=== PATIENT | male | born 1950 | race Caucasian/White ===

== ENCOUNTER 2021-02-02 07:07 | Observation (INO) | payer MEDICARE, SELFPAY ==
[2021-02-02] VITALS (7 sets, daily range): BP systolic 101–131; BP diastolic 63–76; PULSE 67–97; RESP 16–20; TEMP 36.8–38.6; O2SAT 94–100; BMI 22.8
--- NOTE | ~2021-02-02 | CT_ITS ---
EXAMINATION: CT abdomen pelvis w con DATE: 02/02/2021 09:14 INDICATION: Abdominal pain TECHNIQUE: Computed tomography (CT) of the abdomen and pelvis was performed with 100 mL Omnipaque-350 intravenous contrast. Automated exposure control and iterative reconstruction technique were employe d. The dose-length product was 285.86 mGy-cm. COMPARISON: None FINDINGS: Mild peripheral atelectasis/scarring at the posterior left lower lobe. Heart size is normal. No peric ardial or pleural effusion. Small sliding-type hiatal hernia. Liver, gallbladder, spleen, pancreas, b ilateral adrenal glands and right kidney are normal. 7 mm nonobstructing stone at a lower pole calyx of the left kidney. Borderline dilation of the common bile duct which measures up to 7 mm in maximal diameter. No intrahepatic biliary duct dilation. There is stranding and small amount of nonloculated retroperitoneal fluid posterior to the duodenum and head of the pancreas where there is also a 2.6 cm duodenal diverticulum. The appendix is not visualized. No pericecal inflammatory change to suggest a cute appendicitis. No bowel obstruction. Bladder is normal. Bilateral small fat-containing inguinal h ernias. No free intraperitoneal gas or fluid. No pathologically enlarged abdominal or pelvic lymphade nopathy. Chronic T10 and T11 compression fractures with mild anterior wedging. Partially lumbarized S 1 segment. IMPRESSION: 1. Stranding and small amount of nonloculated fluid in the retroperitoneal space posterior to the duo denum with duodenal diverticulum and head of the pancreas. Differential would include acute interstit ial pancreatitis, peptic ulcer disease, duodenitis, duodenal diverticulitis. 2. Borderline common bile duct diameter with normal appearing gallbladder, no evident obstructing les ion 3. Small sliding-type hiatal hernia. 4. Bilateral small fat-containing inguinal hernias. And no intrahepatic biliary ductal dilation. Valdo elate with liver function tests. Reviewed, dictated and finalized at location A. IMPRESSION: 1. Stranding and small amount of nonloculated fluid in the retroperitoneal spac e posterior to the duodenum with duodenal diverticulum and head of the pancreas . Differential would include acute interstitial pancreatitis, peptic ulcer dise ase, duodenitis, duodenal diverticulitis. 2. Borderline common bile duct diameter with normal appearing gallbladder, no e vident obstructing lesion 3. Small sliding-type hiatal hernia. 4. Bilateral small fat-containing inguinal hernias. And no intrahepatic biliary ductal dilation. Correlate with liver function tests.
--- NOTE | 2021-02-02 07:40 | ED.ABDPAIN ---
HPI - Abdominal Pain General Chief Complaint: Abdominal Pain Stated Complaint: abd pain Time Seen by Provider: 02/02/21 07:32 Source: patient and RN notes reviewed Mode of arrival: ambulatory Limitations: no limitations History of Present Illness HPI narrative: Patient is 70 years old white male presents with abdominal pain started last night across the mid abdomen, aching, no radiation, constant, worse with sitting, nothing make it better. Patient denies any fever, chills, nausea, vomiting, urinary symptoms or bowel symptoms. Patient been vaccinated for COVID-19 weeks ago. Patient does not smoke and drinks occasionally, no drugs. History of appendectomy Related Data Home Medications Medication Instructions Recorded Confirmed cyanocobalamin (vitamin B-12) 1,000 mcg PO DAILY 09/07/19 02/02/21 1,000 mcg capsule loratadine 10 mg tablet 10 mg PO DAILY 09/07/19 02/02/21 Eliquis 5 mg PO BID 02/02/21 02/02/21 allopurinol 100 mg PO DAILY 02/02/21 02/02/21 lisinopril 2.5 mg PO DAILY 02/02/21 02/02/21 Allergies Allergy/AdvReac Type Severity Reaction Status Date / Time No Known Allergies Allergy Verified 02/02/21 07:11 Review of Systems Review of Systems: Narrative: CONSTITUTIONAL: Denies fever, chills, or sweats. EYES: Denies visual changes, redness, or discharge. ENT: Denies rhinorrhea, congestion, sore throat, or otalgia. CARDIOVASCULAR: Denies chest pain, palpitations, or edema. RESPIRATORY: Denies cough or dyspnea. GASTROINTESTINAL: Denies abdominal pain, nausea, vomiting, or diarrhea. GENITOURINARY: Denies dysuria or hematuria. SKIN: Denies rash or itching. MUSCULOSKELETAL: Denies back pain, joint pain, or myalgia. NEUROLOGIC: Denies headache, numbness, or weakness. PSYCHIATRIC: Denies anxiety or depression. [facility] Past Medical History Medical History Gout Impairment of balance Screening for cardiovascular condition Family History Family History Sibling , Memory loss No problems noted. Social History Social History Smoking status: Never smoker Gender identity (if verbalized by the patient): Male Exam Narrative: Exam Narrative: General appearance: Well-developed, well-nourished Skin: Normal color Head: Normocephalic, nontraumatic Eyes: Clear conjunctiva ENT: Oropharynx normal, ears normal, nose normal Neck: Supple, nontender Chest and respiratory: Airway patent, no respiratory distress, no accessory muscle use Heart: Regular rate/rhythm Abdomen: Soft, nontender, no organomegaly, quiet bowel sounds Vascular: Normal peripheral pulses, normal capillary refill. Musculoskeletal: Normal range of motion, nontender back Neurologic: Alert and oriented ?3, PRESS WRITER is normal as tested, no gross motor deficit Course Course Emergency Course: Stable Consultations Consultation #1: Dr. Kelly Admit to hospitalist Date: 02/02/21 Time: 10:11 Vital Signs Vital signs: Vital Signs Temperature 36.8 C 02/02/21 07:08 Pulse Rate 67 02/02/21 07:08 Respiratory Rate 20 02/02/21 07:08 Blood Pressure 121/73 02/02/21 07:08 Pulse Oximetry 100 02/02/21 07:08 Temperature 36.8 C 02/02/21 07:08 Pulse Rate 68 02/02/21 09:29 Respiratory Rate 18 02/02/21 09:29 Blood Pressure 131/73 02/02/21 09:29 Pulse Oximetry 98 02/02/21 09:29 MDM - Abdominal Pain MDM Narrative Medical decision making narrative: Patient presents with abdominal pain Labs, CT abdomen pelvis with IV contrast, IV fluid started. Look at my differential diagnosis below. Melissa
[2021-02-02] MEDS: SODIUM CHLORIDE 0.9% IV 1,000 ML 999 ML IV CONT (07:44)
[2021-02-02 08:16] LABS: Basophils Percent Auto 0.4 % (0.2-1.2); Eosinophils Absolute Auto 0.1 K/mm3 (0-0.3); Eosinophils Percent Auto 0.5 % (0-4.4); Hematocrit 41.5 % (42.0-52.0); Hemoglobin 14.3 g/dL (14.0-18.0); Immature Granulocyte Absolute 0.03 K/mm3 (0.00-0.031); Immature Granulocyte Percent A 0.3 % (0-0.5); Lymphocytes Absolute Auto 2.26 K/mm3 (0.9-3.2); Lymphocytes Percent Auto 20.1 % (18.3-44.2); Mean Corpuscular HGB Conc 34.5 g/dl (32-36); Mean Corpuscular Volume 95.8 fl (80-100); Mean Platelet Volume 8.9 fl (7.4-10.4); Monocytes Absolute Auto 0.9 K/mm3 (0.1-0.6); Monocytes Percent Auto 7.8 % (2.6-8.5); Neutrophils Percent Auto 70.9 % (45.5-73.1); Platelet Count Result 237 k/mm3 (150-375); Red Blood Count 4.33 M/mm3 (4.6-6.20); Red Cell Distribution Width 12.3 % (11.5-14.5); White Blood Count 11.2 K/mm3 (4.5-10.0)
[2021-02-02 09:00] LABS: Alanine Aminotransferase 19 U/L (4-50); Albumin Level 4.1 g/dL (3.5-5.1); Alkaline Phosphatase 65 U/L (38-126); Anion Gap 5 mmol/L (8-16); Aspartate Amino Transferase 36 U/L (17-59); Bilirubin,Total 2.2 mg/dL (0.2-1.3); Blood Urea Nitrogen 14 mg/dL (9-20); Calcium 8.9 mg/dL (8.4-10.2); Carbon Dioxide 27 mmol/L (22-30); Chloride 104 mmol/L (98-107); Estimated CRCL calculation 96 ml/min; Estimated Glomerular Filt Rate > 60; Glucose 112 mg/dL (75-110); Lipase 83 U/L (23-300); Sodium 136 mmol/L (137-145)
[2021-02-02 09:13] LABS: Estimated CRCL calculation 84 ml/min; Estimated Glomerular Filt Rate > 60
--- NOTE | 2021-02-02 13:57 | PC.NURSE ---
This patient, Leoncio Queen, was admitted to [facility] Room 312-01. Patient/family oriented to hospital policies and general routines including ID bracelet, bed and alarms, visiting hours, pain management, procedures, bathroom and other care routines, personal items, smoking policy, room service/diet, and visiting hours. Information on how to activate the Rapid Response Team has been discussed. Patient/Family are encouraged to report perceived risks to care and to ask questions if they do not understand what they are told or what they should do.
[2021-02-02] MEDS: SODIUM CHLORIDE 0.9% IV 1,000 ML 125 ML IV CONT (14:12)
--- NOTE | 2021-02-02 15:37 | PM.IMHP ---
H&P: HPI History of Present Illness Date/Time: 02/02/21 15:37 Patient is a very pleasant 70-year-old male with a past medical history of gout hypertension allergies and recurrent DVTs who presents the ED today with lower abdominal pain. Patient stated that all started last night about 7 or 8:00 a.m. at night he was having major pain could not sleep however denies any nausea or vomiting constipation or diarrhea to accompany it. Patient stated the pain is located in his lower abdomen, it does not have any radiation, however he has had relief since he has gotten IV Tylenol. Patient stated that he is a generally okay however he did feel little shaky and stated that he has for help to get to the bathroom downstairs nothing was no fall but he mentioned that he was just a little slow. He also stated that he felt like he was going to have to urinate a lot but only a little bit came out which she says is abnormal in most the time he urinates quite a bit at a time. Urine looked to be joey and clear. CT did show a 7 mm stone in the left kidney in the lower pole calyx that is not obstructing. CT also showed small amounts of fluid in the posterior duodenum and head of the pancreas. Patient denies chest pain, shortness of breath, fevers, chills, constipation, diarrhea, headaches, blurred vision, dizziness, lightheadedness, edema, or numbness and tingling. Patient did say that he felt a little fatigued and very like to take naps. Upon entering the room the patient was eating a full liquid tray he said he was tolerating the tomato soup and the ice cream with no pain. Patient did have pain with palpitation in the lower part of the abdomen underneath the umbilicus. A little concerned white count is 11.2 and he did have a 38.6 degree temperature. Explained to the patient that GI was consulted and that a further plan would be developed after being seen by GI however will start with blood cultures and urine cultures to check for any sites of infection. Patient denies having any open areas or any injuries of infection. Chief Complaint: Abdominal pain Review of Systems Review of Systems: All systems reviewed & are unremarkable except as noted in HPI and below [facility] Past Medical History Medical History (Updated 02/02/21 @ 16:16 by TRINIDAD Leger) Alcohol abuse DVT (deep venous thrombosis) Rt knee in '01 and left groin '03 Gout Hypertension Impairment of balance Infection Screening for cardiovascular condition Seasonal allergic rhinitis Surgical History Surgical History (Updated 02/02/21 @ 15:51 by TRINIDAD Leger) History of appendectomy 1977 Family History Family History (Updated 02/02/21 @ 15:53 by TRINIDAD Leger) Sibling , Cindy Diabetes mellitus Hyperlipemia Other Diabetes mellitus Nephew Father Hypertension Pneumonia Mother Cerebrovascular accident Hyperlipemia Social History Social History (Updated 02/02/21 @ 15:56 by TRINIDAD Leger) Social History: Patient would like to be a full code and he would also like his sister Kayleigh Handy [phone] to be the decision maker if needed. Smoking packs per day: 0.5 Smoking cigarettes per day: 10.0 Smoking status: Current every day smoker Tobacco type: cigars Second hand tobacco smoke exposure: No Alcohol intake: current Drinks per week: 28 Alcohol use details: Drinks about 3-4 beers per night 12oz Bottles Substance use: never Living arrangements: alone Additional living arrangements comments: Has a girlfriend for the last 30 years. Met on a blind date [place]. Patient does not have any pets at home. 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
[2021-02-02 16:22] LABS: Add Urine Microscopic? YES; Appearance Urine Clear (Clear); Bilirubin Urine Negative (Negative); Blood Urine Negative (Negative); Color Urine Yellow (Yellow); Glucose Urine UA Negative (Negative); Ketones Urine Trace mg/dL (Negative); Leukocyte Esterase Ur Negative LEU/UL (Negative); Mucus Urine Rare /lpf; Nitrate Urine Negative (Negative); Protein Urine Negative (Negative); RBC Urine 0-2 /hpf (0-2); Squamous Epithelial Cell Urine Rare /hpf (Few); Urobilinogen Urine Negative mg/dL (<2.0); WBC Urine 0-3 /hpf
[2021-02-02 16:23] LABS: Specific Grav Ur 1.055 (1.001-1.035)
[2021-02-02 17:26] LABS: Glucose Point of Care 184 mg/dl (65-105)
[2021-02-02] MEDS: MORPHINE SULFATE (*CRX) 2 MG/ML INJ IV PUSH (21:36)
[2021-02-03] VITALS (8 sets, daily range): BP systolic 93–106; BP diastolic 48–71; PULSE 59–86; RESP 14–33; TEMP 36.2–37.2; O2SAT 92–99; BMI 22.8
[2021-02-03] MEDS: SODIUM CHLORIDE 0.9% IV 1,000 ML 125 ML IV CONT (02:46)
[2021-02-03 05:55] LABS: Basophils Percent Auto 0.2 % (0.2-1.2); Eosinophils Percent Auto 0.1 % (0-4.4); Hematocrit 33.5 % (42.0-52.0); Hemoglobin 11.5 g/dL (14.0-18.0); Immature Granulocyte Absolute 0.04 K/mm3 (0.00-0.031); Immature Granulocyte Percent A 0.4 % (0-0.5); Lymphocytes Absolute Auto 1.65 K/mm3 (0.9-3.2); Lymphocytes Percent Auto 16.2 % (18.3-44.2); Mean Corpuscular HGB Conc 34.3 g/dl (32-36); Mean Corpuscular Hemoglobin 32.7 pg (26-34); Mean Corpuscular Volume 95.2 fl (80-100); Mean Platelet Volume 8.7 fl (7.4-10.4); Monocytes Absolute Auto 0.7 K/mm3 (0.1-0.6); Monocytes Percent Auto 6.9 % (2.6-8.5); Neutrophils Absolute Auto 7.8 K/mm3 (1.3-6.7); Neutrophils Percent Auto 76.2 % (45.5-73.1); Platelet Count Result 174 k/mm3 (150-375); Red Blood Count 3.52 M/mm3 (4.6-6.20); Red Cell Distribution Width 12.1 % (11.5-14.5); White Blood Count 10.2 K/mm3 (4.5-10.0)
[2021-02-03 06:10] LABS: Alanine Aminotransferase 13 U/L (4-50); Albumin Level 3.1 g/dL (3.5-5.1); Alkaline Phosphatase 46 U/L (38-126); Anion Gap 1 mmol/L (8-16); Aspartate Amino Transferase 23 U/L (17-59); Bilirubin,Total 2.1 mg/dL (0.2-1.3); Blood Urea Nitrogen 10 mg/dL (9-20); Calcium 8.2 mg/dL (8.4-10.2); Carbon Dioxide 27 mmol/L (22-30); Chloride 107 mmol/L (98-107); Estimated CRCL calculation 84 ml/min; Estimated Glomerular Filt Rate > 60; Glucose 116 mg/dL (75-110); Magnesium 1.6 mg/dL (1.6-2.3); Potassium 3.6 mmol/L (3.4-5.0); Sodium 135 mmol/L (137-145)
[2021-02-03] MEDS: MAGNESIUM SULF 4 GM/WATER100ML 4 GM/100 ML BAG IVPB (08:54)
[2021-02-03] MEDS: THIAMINE HCL 200 MG/2 ML VIAL 100 MG IV PUSH (08:56)
[2021-02-03] MEDS: ENOXAPARIN 40 MG/0.4 ML SYRINGE SUB-Q (08:56)
[2021-02-03] MEDS: PANTOPRAZOLE SODIUM IV 40 MG VIAL IV PUSH (08:57)
[2021-02-03] MEDS: FOLIC ACID 1 MG/0.2 ML INJ IV PUSH (09:31)
--- NOTE | 2021-02-03 09:50 | WPDGICN ---
Assessment and Plan Assessment and plan (1) Upper abdominal pain: Code(s): R10.10 - Upper abdominal pain, unspecified Status: Acute Assessment and Plan: will assess with EGD to check if ulcer, duodenitis, diverticula, etc no evidence of pancreatitis (2) Abnormal CT scan, gastrointestinal tract: Code(s): R93.3 - Abnormal findings on diagnostic imaging of other parts of digestive tract Status: Acute Assessment and Plan: egd (3) Hypertension: Code(s): I10 - Essential (primary) hypertension Status: Acute (4) Leukocytosis: Code(s): D72.829 - Elevated white blood cell count, unspecified Status: Acute Assessment and Plan: continue to monitor, pending cultures (5) Elevated bilirubin: Code(s): R17 - Unspecified jaundice Status: Acute Assessment and Plan: will get indirect bilirubin and repeat lft's GI Consult Note Consult date/time: 02/03/21 09:50 Reason for consult: upper abdominal pain, abnormal imaging of duodenum HPI: Leoncio Queen is a 70 year old male with history of gout, hypertension and DVTs who came to the ER with new onset of upper abdominal pain, moderate intensity and improved after received iv Tylenol. No previous pain like this before, never had EGD but colonoscopy about 7-[address] scan reviewed, 7 mm stone in the left kidney in the lower pole calyx that is not obstructing, also small amount of nonloculated fluid in the posterior duodenum and head of the pancreas, possible diverticula. TB 2 but other liver enzymes normal, also had wbc 11k. Blood cultures pending, he is feeling better now. Review of Systems Constitutional: Constitutional: Denies headache(s) and Denies weakness Eyes: Eyes: Denies blurry vision ENT: Reports Normal hearing present, Denies headache(s) and Denies neck pain Cardiovascular: Cardiovascular: Denies chest pain and Denies dyspnea Respiratory: Respiratory: Denies dyspnea Gastrointestinal: Gastrointestinal: Reports no additional gastrointestinal complaints Genitourinary: Genitourinary: Denies dysuria Musculoskeletal: Musculoskeletal: Denies neck pain Integumentary/Breasts: Skin/Breast: Denies dry skin Neurologic: Reports Normal hearing present, Denies headache(s) and Denies weakness Psychiatric: Psychiatric: Denies anxiety Endocrine: Endocrine: Denies change in body appearance Hematologic/Lymphatic: Hematologic/Lymphatic: Denies easy bleeding Allergic/Immunologic: Allergic/Immunologic: Denies urticaria PMFSH Past Medical History Medical History (Updated 02/03/21 @ 09:58 by Mgiuel Corona MD) Abnormal CT scan, gastrointestinal tract Alcohol abuse DVT (deep venous thrombosis) Rt knee in ' and left groin '03 Elevated bilirubin Gout Hypertension Impairment of balance Infection Leukocytosis Screening for cardiovascular condition Seasonal allergic rhinitis Upper abdominal pain Surgical History Surgical History (Updated 02/02/21 @ 15:51 by TRINIDAD Leger) History of appendectomy 1977 Family History Family History (Updated 02/02/21 @ 15:53 by TRINIDAD Leger) Sibling , Cindy Diabetes mellitus Hyperlipemia Other Diabetes mellitus Nephew Father Hypertension Pneumonia Mother Cerebrovascular accident Hyperlipemia Social History Social History (Updated 02/02/21 @ 15:56 by TRINIDAD Leger) Social History: Patient would like to be a full code and he would also like his sister Kayleigh Handy [phone] to be the decision maker if needed. Smoking packs per day: 0.5 Smoking cigarettes per day: 10.0 Smoking status: Current every day smoker Tobacco type: cigars Second hand tobacco smoke exposure: No Alcohol intake: current Drinks per week: 28 Alcohol use details: Drinks about 3-4 beers per night 12oz Bottles Substance use: never Living arrangements: alone Additional living arrang
[2021-02-03 13:05] LABS: Glucose Point of Care 105 mg/dl (65-105)
--- NOTE | 2021-02-03 13:31 | WPDANESEPPF ---
Anes - Initial Pre Proc Eval Procedure: Operation Date: 02/03/21 14:15 Proposed Procedures p Esophagogastroduodenoscopy - Miguel Corona MD Date/Time: 02/03/21 13:31 Surgeon: Ajay Brito MD Pre Op Diagnosis: Abdominal pain, duodenitis Patient Data Age: 70 Gender: M Height: 5 ft 8 in Weight: 68 kg Last Vital Signs Temp 36.2 C L 02/03/21 06:00 Pulse 86 02/03/21 06:00 Resp 20 02/03/21 06:00 BP 96/58 L 02/03/21 06:00 Pulse Ox 92 02/03/21 06:00 Allergies Allergy/AdvReac Type Severity Reaction Status Date / Time No Known Allergies Allergy Verified 02/03/21 13:22 Home Medications Medication Instructions Recorded Confirmed Type cyanocobalamin (vitamin B-12) 1,000 mcg PO DAILY 09/07/19 02/02/21 History 1,000 mcg capsule loratadine 10 mg tablet 10 mg PO DAILY 09/07/19 02/02/21 History Eliquis 5 mg PO BID 02/02/21 02/02/21 History allopurinol 100 mg PO DAILY 02/02/21 02/02/21 History lisinopril 2.5 mg PO DAILY 02/02/21 02/03/21 History Laboratory Tests 02/02/21 02/02/21 02/03/21 16:11 17:24 05:35 WBC 10.2 K/mm3 H K/mm3 (4.5-10.0) RBC 3.52 M/mm3 L M/mm3 (4.6-6.20) Hgb 11.5 g/dL L g/dL (14.0-18.0) Hct 33.5 % L % (42.0-52.0) MCV 95.2 fl fl (80-100) MCH 32.7 pg pg (26-34) MCHC 34.3 g/dl g/dl (32-36) RDW 12.1 % % (11.5-14.5) Plt Count 174 k/mm3 k/mm3 (150-375) MPV 8.7 fl fl (7.4-10.4) Immature Gran % (Auto) 0.4 % % (0-0.5) Neut % (Auto) 76.2 % H % (45.5-73.1) Lymph % (Auto) 16.2 % L % (18.3-44.2) [place] % (Auto) 6.9 % % (2.6-8.5) Eos % (Auto) 0.1 % % (0-4.4) Baso % (Auto) 0.2 % % (0.2-1.2) Lymph # (Auto) 1.65 K/mm3 K/mm3 (0.9-3.2) [place] # (Auto) 0.7 K/mm3 H K/mm3 (0.1-0.6) Eos # (Auto) 0.0 K/mm3 K/mm3 (0-0.3) Baso # (Auto) 0.0 K/mm3 K/mm3 (0.0-0.1) Abs Immat Gran (auto) 0.04 K/mm3 H K/mm3 (0.00-0.031) Absolute Neuts (auto) 7.8 K/mm3 H K/mm3 (1.3-6.7) Absolute Nucleated RBC 0.0 K/mm3 K/mm3 (0.0-0.012) Nucleated RBC % 0.0 % % (0.0-0.2) Sodium Potassium Chloride Carbon Dioxide Anion Gap BUN Creatinine Estim Creat Clear Calc Estimated GFR Glucose POC Capillary Glucose 184 mg/dl H mg/dl (65-105) Calcium Magnesium Total Bilirubin AST ALT Alkaline Phosphatase Total Protein Albumin Urine Color Yellow (Yellow) Urine Appearance Clear (Clear) Urine pH 5.0 (5.0-9.0) Ur Specific [place] 1.055 H (1.001-1.035) Urine Protein Negative mg/dL mg/dL (Negative) Urine Glucose (UA) Negative mg/dL mg/dL (Negative) Urine Ketones Trace mg/dL mg/dL (Negative) Ur Blood (Man) Negative (Negative) Urine Nitrate Negative (Negative) Urine Bilirubin Negative (Negative) Urine Urobilinogen Negative mg/dL mg/dL (<2.0) Leukocyte Esterase Rfl Negative NICO/UL NICO/UL (Negative) Urine RBC 0-2 /hpf /hpf (0-2) Urine WBC 0-3 /hpf /hpf Ur Squamous Epith Cells Rare /hpf /hpf (Few) Urine Mucus Rare /lpf /lpf 02/03/21 02/03/21 05:35 13:03 WBC RBC Hgb Hct MCV MCH MCHC RDW Plt Count MPV Immature Gran % (Auto) Neut % (Auto) Lymph % (Auto) [place] % (Auto) Eos % (Auto) Baso % (Auto) Lymph # (Auto) [place] # (Auto) Eos # (Auto) Baso # (Auto)
[2021-02-03] MEDS: LACTATED RINGERS 1,000 ML 150 ML IV CONT ×2 (13:41→15:07)
--- NOTE | 2021-02-03 15:04 | P.DS_ITS ---
DS: Admitting Diagnosis Admitting Diagnosis Admitting Diagnosis: Abdominal pain DS: Discharge Diagnosis Discharge Diagnosis (1) Abdominal pain: Qualifiers: Abdominal location: upper abdomen, unspecified Qualified Code(s): R10.10 - Upper abdominal pain, unspecified Code(s): R10.9 - Unspecified abdominal pain Status: Acute Assessment and Plan: * Ct showed: 1. Stranding and small amount of nonloculated fluid in the retroperitoneal space posterior to the duodenum with duodenal diverticulum and head of the pancreas. Differential would include acute interstitial pancreatitis, peptic ulcer disease, duodenitis, duodenal diverticulitis. 2. Borderline common bile duct diameter with normal appearing gallbladder, no evident obstructing lesion 3. Small sliding-type hiatal hernia. 4. Bilateral small fat-containing inguinal hernias. And no intrahepatic biliary ductal dilation. Correlate with liver function tests. * Bilirubin 2.2, lipase is 83 * Pain on exam with palpation * GI consulted thank you for recommendations * Morphine IV 1-2mg q4hr for moderate and severe pain * Tylenol for minimal pain * NS 125ml/hr * NPO after 0000 * EGD found a hernia and Schatzkis ring that was dilated * Up ad pam (2) Infection: Code(s): B99.9 - Unspecified infectious disease Status: Acute Assessment and Plan: * WBC 10.2 today temp 37.2 * Urgency and frequency reported resolved with standing * Blood cultures ordered and pending * Urine culture pending * Will hold on antibiotics * Trend WBC and Temps * Monitor for signs of infection. (3) Alcohol abuse: Code(s): F10.10 - Alcohol abuse, uncomplicated Status: Acute Assessment and Plan: * 3-4 beers a night * CIWA ordered * Lorazepam 1mg q4hr * Folic acid 1mg IV daily, thiamine 100mg IV daily * Trend symptoms (4) Hypertension: Code(s): I10 - Essential (primary) hypertension Status: Acute Assessment and Plan: * Blood pressure is stable at 97/51 * Lisinopril 2.5mg PO daily on hold for now * Hydralazine 10mg IV with parameters * Trend blood pressures * adjust medications as needed (5) Seasonal allergic rhinitis: Qualifiers: Allergic rhinitis trigger: unspecified Qualified Code(s): J30.2 - Other seasonal allergic rhinitis Code(s): J30.2 - Other seasonal allergic rhinitis Status: Acute Assessment and Plan: * Takes zrytec 10mg daily * Hold for now (6) Gout: Qualifiers: Chronicity: chronic Gout etiology: unspecified cause Gout site: unspecified site Presence of tophus: without tophus Qualified Code(s): M1A .9XX0 - Chronic gout, unspecified, without tophus (tophi) Code(s): M10.9 - Gout, unspecified Status: Acute Assessment and Plan: * Patient takes allopurinol 100mg PO daily at home * Hold for now (7) Hx of deep venous thrombosis: Code(s): Z86.718 - Personal history of other venous thrombosis and embolism Status: Acute Assessment and Plan: * History of blood clots in right knee and left groin * Hold Eliquis 5mg PO daily at home * Lovenox 40mg daily while NPO for prophylaxis * Up ad pam DS: Summary Hospital Course Hospital Course: Patient is a 70-year-old male with a past medical history
--- NOTE | 2021-02-03 15:04 | PM.DS ---
DS: Admitting Diagnosis Admitting Diagnosis Admitting Diagnosis: Abdominal pain DS: Discharge Diagnosis Discharge Diagnosis (1) Abdominal pain: Qualifiers: Abdominal location: upper abdomen, unspecified Qualified Code(s): R10.10 - Upper abdominal pain, unspecified Code(s): R10.9 - Unspecified abdominal pain Status: Acute Assessment and Plan: Ct showed: 1. Stranding and small amount of nonloculated fluid in the retroperitoneal space posterior to the duodenum with duodenal diverticulum and head of the pancreas. Differential would include acute interstitial pancreatitis, peptic ulcer disease, duodenitis, duodenal diverticulitis. 2. Borderline common bile duct diameter with normal appearing gallbladder, no evident obstructing lesion 3. Small sliding-type hiatal hernia. 4. Bilateral small fat-containing inguinal hernias. And no intrahepatic biliary ductal dilation. Correlate with liver function tests. Bilirubin 2.2, lipase is 83 Pain on exam with palpation GI consulted thank you for recommendations Morphine IV 1-2mg q4hr for moderate and severe pain Tylenol for minimal pain NS 125ml/hr NPO after 0000 EGD found a hernia and Schatzkis ring that was dilated Up ad pam (2) Infection: Code(s): B99.9 - Unspecified infectious disease Status: Acute Assessment and Plan: WBC 10.2 today temp 37.2 Urgency and frequency reported resolved with standing Blood cultures ordered and pending Urine culture pending Will hold on antibiotics Trend WBC and Temps Monitor for signs of infection. (3) Alcohol abuse: Code(s): F10.10 - Alcohol abuse, uncomplicated Status: Acute Assessment and Plan: 3-4 beers a night CIWA ordered Lorazepam 1mg q4hr Folic acid 1mg IV daily, thiamine 100mg IV daily Trend symptoms (4) Hypertension: Code(s): I10 - Essential (primary) hypertension Status: Acute Assessment and Plan: Blood pressure is stable at 97/51 Lisinopril 2.5mg PO daily on hold for now Hydralazine 10mg IV with parameters Trend blood pressures adjust medications as needed (5) Seasonal allergic rhinitis: Qualifiers: Allergic rhinitis trigger: unspecified Qualified Code(s): J30.2 - Other seasonal allergic rhinitis Code(s): J30.2 - Other seasonal allergic rhinitis Status: Acute Assessment and Plan: Takes zrytec 10mg daily Hold for now (6) Gout: Qualifiers: Chronicity: chronic Gout etiology: unspecified cause Gout site: unspecified site Presence of tophus: without tophus Qualified Code(s): M1A.9XX0 - Chronic gout, unspecified, without tophus (tophi) Code(s): M10.9 - Gout, unspecified Status: Acute Assessment and Plan: Patient takes allopurinol 100mg PO daily at home Hold for now (7) Hx of deep venous thrombosis: Code(s): Z86.718 - Personal history of other venous thrombosis and embolism Status: Acute Assessment and Plan: History of blood clots in right knee and left groin Hold Eliquis 5mg PO daily at home Lovenox 40mg daily while NPO for prophylaxis Up ad pam DS: Summary Hospital Course Hospital Course: Patient is a 70-year-old male with a past medical history of gout, hypertension allergies who presented to the ED for complaints of abdominal pain. Patient was on clear liquids last night NPO after midnight for an EGD this morning. Pain was mild with palpitation and started in the umbilicus and this morning was over and the right lower quadrant. EGD found a hernia and a ring that was dilated with a balloon. Upon examination this morning patient had no complaints and said he was feeling better.Patient denies chest pain, shortness of breath, fevers, chills, constipation, diarrhea, headaches, blurred vision, dizziness, lightheadedness, edema, or numbn
[2021-02-03 15:07] LABS: Glucose Point of Care 93 mg/dl (65-105)
--- NOTE | 2021-02-03 18:59 | PC.NURSE ---
Patient assessment for discharge completed at timing of 1740. Patient left facility via wheelchair to private vehicle at 1815.
== END 2021-02-03 17:40 | disposition home or self-care (01) ==
LOC: ANHED 10:10 → ANH3MEDSUR 02-03 07:43
PROVIDERS: Internal Medicine Gastroenterology; Admitting Provider Internal Medicine; Emergency Provider Emergency Medicine; PCP Internal Medicine; Visit Provider Nurse Practitioner
PROC: 0DJ08ZZ Inspection of Upper Intestinal Tract, Via Natural or Artificial Opening Endoscopic (ICD-10-PCS; CPT 43235; principal; 2021-02-03 14:15)
DX: R10.10 Upper abdominal pain, unspecified (principal); B99.9 Unspecified infectious disease; K22.2 Esophageal obstruction; K44.9 Diaphragmatic hernia without obstruction or gangrene; D72.829 Elevated white blood cell count, unspecified; R17 Unspecified jaundice; F10.10 Alcohol abuse, uncomplicated; I10 Essential (primary) hypertension; M10.9 Gout, unspecified; N20.0 Calculus of kidney; J30.2 Other seasonal allergic rhinitis; Z79.01 Long term (current) use of anticoagulants; Z86.718 Personal history of other venous thrombosis and embolism; F17.290 Nicotine dependence, other tobacco product, uncomplicated; Z79.899 Other long term (current) drug therapy
CPT/HCPCS: 43249; 36415; 74177; 80053; 81001; 82948; 83690; 83735; 85025; 87040; 96361; 96372; 96374; 96375; 99285; C1726; C9113; G0378; J0131; J1650; J2270; J2704; J3411; J3475; J7030; J7040; J7120; Q9967

== ENCOUNTER → 2021-04-18 14:43 | Outpatient (CLI) | payer MEDICARE, SELFPAY ==
--- NOTE | ~2021-04-18 | XR_ITS ---
XR chest 2V DATE: 04/18/2021 14:54 INDICATION: Abnormal weight loss TECHNIQUE: 2 views COMPARISON: None FINDINGS: Normal heart size. Aortic calcification and tortuosity. No hilar or mediastinal enlargement . Calcified right hilar nodes and right calcified pulmonary granulomas, consistent with old pulmonary granulomatous disease. There is bilateral hyperinflation suggesting obstructive airways disease. No pulmonary infiltrate or consolidation. No pleural effusion or pulmonary vascular congestion or pneumothorax. There is diffuse osteopenia. There is mild anterior wedging of a couple of lower thoracic vertebral b odies, likely chronic. Bilateral old healed rib fractures. IMPRESSION: Bilateral hyperinflation, which may be consistent with COPD. No active cardiopulmonary disease Reviewed, dictated and finalized at location B.
== END ==
PROVIDERS: PCP Internal Medicine; Visit Provider Internal Medicine
DX: R63.4 Abnormal weight loss (principal)
CPT/HCPCS: 71046

== ENCOUNTER 2021-07-17 10:00 | Outpatient (RCR) | payer MEDICARE, SELFPAY ==
--- NOTE | 2021-05-06 15:19 | PTOPEVAL ---
PHYSICAL THERAPY EVALUATION AND PLAN OF CARE Thank you for referring Leoncio Queen to [facility].? The patient is scheduled to be seen for therapy? 1-2x/week for 4 weeks. Please review, sign, date and return this plan of care CARLOS. I agree with and certify that the following plan of care is medically necessary. Referring Physician Date Attending Provider: Jorge Snider, Evaluation Diagnosis gait abnormality Onset 6months Subjective Information Leoncio reports impaired gait Query Text:As Reported By Patient/ and impaired balance. Reports Family a fall within the last week. he did fall on the right hip and shoulder, but neither are injured today. Reports difficulty getting up off the ground. States that he needs to work on getting his legs stronger. Laundry is in the basement and did fall when doing laundry. 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 Prior Level of Function Home Setting Environmental Barriers Railing, Ascend Right,Stairs, Greater than 4 Living Situation Alone Pain Assessment Timing of Pain Assessment Timing of Pain Assessment Assessment Self Report Self Report Pain Level 0 Pain Score Pain Score 0: Self Report Lower Extremity Muscle Strength Testing Hip Strength Bilateral Hip Flexion Strength 3+ Fair + Hip Extension Strength 2+ Poor + Hip Abduction Strength 3- Fair - Knee Strength Bilateral Knee Flexion Strength 4- Good - Knee Extension Strength 4- Good - Ankle Strength Bilateral Ankle Dorsiflexion Strength 3+ Fair + Ankle Plantarflexion Strength 3 Fair Muscle Length Testing Muscle Length Testing Richard Test Shortened Muscles Short (R) Iliopsoas,Short (L) Iliopsoas,Short (R) Rectus Femoris,Short (L) Rectus Femoris Left Hamstring Length -50 Query Text:(90 - 90 Position) Right Hamstring Length -60 Query Text:(90 - 90 Position) Balance Assessment Cruz Balance Assessment Sitting to Standing Independent w/Hands Unsupported Stance Ability Safely- 2 minutes Sitting Unsupported, Feet on Floor Safely- 2 minutes Standing to Sitting Assist, Use Legs on Chair Unsupported Stance- Eyes Closed 3 seconds Unsupported Stance- Feet Together Independent, 1 minute Reaching Forward while Standing Safely, 2 inches photographic supervisor Object From Floor
--- NOTE | 2021-06-10 11:55 | PTOPEVAL ---
PHYSICAL THERAPY PROGRESS REPORT Thank you for referring Leoncio Queen to [facility].? The patient is scheduled to be seen for therapy? 1x/week for 4 weeks. Please review, sign, date and return this plan of care CARLOS. I agree with and certify that the following plan of care is medically necessary. Referring Physician Date Attending Provider: Jorge Snider, DO Progress Diagnosis gait abnormality Onset 6months Subjective Information Reports that he feels like he Query Text:As Reported By Patient/ is improving some. Family Pain Assessment Timing of Pain Assessment Timing of Pain Assessment Assessment Self Report Self Report Pain Level 0 Pain Score Pain Score 0: Self Report Lower Extremity Muscle Strength Testing Hip Strength Bilateral Hip Flexion Strength 3+ Fair + Hip Extension Strength 2+ Poor + Hip Abduction Strength 3- Fair - Knee Strength Bilateral Knee Flexion Strength 4- Good - Knee Extension Strength 4- Good - Ankle Strength Bilateral Ankle Dorsiflexion Strength 3+ Fair + Ankle Plantarflexion Strength 3 Fair Muscle Length Testing Muscle Length Testing Richard Test Shortened Muscles Short (R) Iliopsoas,Short (L) Iliopsoas,Short (R) Rectus Femoris,Short (L) Rectus Femoris Left Hamstring Length -50 Query Text:(90 - 90 Position) Right Hamstring Length -60 Query Text:(90 - 90 Position) Balance Assessment Cruz Balance Assessment Sitting to Standing Independent w/Hands Unsupported Stance Ability Safely- 2 minutes Sitting Unsupported, Feet on Floor Safely- 2 minutes Standing to Sitting Assist, Control w/Hands Transfer Ability Safely, Hand Use Unsupported Stance- Eyes Closed 3 seconds Unsupported Stance- Feet Together Independent, 1 minute Reaching Forward while Standing Safely, 5 inches supervisor locomotive Object From Floor Supervision Look Behind Shoulder - Standing Turns Sideways Only Turning 360 Degrees Turns , < 4 secs Unsupported Stance, Alternating Feet on 4 Steps w/Supervision Stair Unsupported Tandem Stance Small Step- 30 seconds Unilateral Leg Stance Lifts Leg/Unable to Hold CRUZ Balance Evaluation Total Score (/56 39 points) Comments 1month ago = 33/56 Time Up Go (TUG) Timed Up and Go Test (TUG) (Seconds) 11 5 Time Sit to Stand Time in Seconds 18.46 5 Time Sit to Stand Comments using arm rests Query Text:Normative Data: If Greater 1month ago = 19.51 seconds Than 15 Seconds, 74% Increase Risk for Recurrent Falls Gait Assessment Gait Pattern Assessment Gait Pattern
--- NOTE | 2021-06-18 08:28 | PCPTNOTE ---
Patient called & cancelled scheduled appointment this date. Not able to make the appt.
--- NOTE | 2021-07-01 11:27 | PCPTNOTE ---
Patient did not show up for scheduled appointment this date. Called and left message.
--- NOTE | 2021-07-17 11:02 | PTOPEVAL ---
PHYSICAL THERAPY DISCHARGE NOTE Thank you for referring Leoncio Queen to [facility].? Please review, sign, date and return this plan of care CARLOS. I agree with and certify that the following plan of care is medically necessary. Referring Physician Date Attending Provider: Jorge Snider, DO Discharge agnosis gait abnormality Onset 6months Subjective Information Definitely feels like his Query Text:As Reported By Patient/ strength and gait are Family improving. Feels much more confident in his strength. Pain Assessment Timing of Pain Assessment Timing of Pain Assessment Assessment Self Report Self Report Pain Level 0 Pain Score Pain Score 0: Self Report Lower Extremity Muscle Strength Testing Hip Strength Bilateral Hip Flexion Strength 3+ Fair + Hip Extension Strength 2+ Poor + Hip Abduction Strength 3- Fair - Knee Strength Bilateral Knee Flexion Strength 4- Good - Knee Extension Strength 4- Good - Muscle Length Testing Muscle Length Testing Richard Test Shortened Muscles Short (R) Iliopsoas,Short (L) Iliopsoas,Short (R) Rectus Femoris,Short (L) Rectus Femoris Left Hamstring Length -45 Query Text:(90 - 90 Position) Right Hamstring Length -45 Query Text:(90 - 90 Position) Balance Assessment Cruz Balance Assessment Sitting to Standing Independent w/Hands Unsupported Stance Ability Safely- 2 minutes Sitting Unsupported, Feet on Floor Safely- 2 minutes Standing to Sitting Assist, Control w/Hands Transfer Ability Safely, Minimal Hand Use Unsupported Stance- Eyes Closed Safely, 10 seconds Unsupported Stance- Feet Together Independent, 1 minute Reaching Forward while Standing Safely, 5 inches paper supervisor Object From Floor Supervision Look Behind Shoulder - Standing Shifts Weight Unilateral Turning 360 Degrees Turns Bilateral, < 4 secs Unsupported Stance, Alternating Feet on 4 Steps w/Supervision Stair Unsupported Tandem Stance Small Step- 30 seconds Unilateral Leg Stance Lifts Leg/Unable to Hold CRUZ Balance Evaluation Total Score (/56 44 points) Comments 1month ago = 33/56 Time Up Go (TUG) Timed Up and Go Test (TUG) (Seconds) 11 5 Time Sit to Stand Time in Seconds 17.52 5 Time Sit to Stand Comments using arm rests Query Text:Normative Data: If Greater 1month ago = 18.46seconds Than 15 Seconds, 74% Increase Risk for 2month ago = 19.51 seconds Recurrent Falls Gait Assessment 6 Minute Walk Total Distance (feet) 1,217 6 Minute Walk Gait Speed Score (feet/ 3.3
== END 2021-07-18 10:41 | disposition home or self-care (01) ==
LOC: ANHPT 10:00
PROVIDERS: PCP Internal Medicine; Visit Provider Internal Medicine
DX: R26.89 Other abnormalities of gait and mobility (principal)
CPT/HCPCS: 97110; 97162

== ENCOUNTER → 2021-07-22 15:17 | Outpatient (CLI) | payer MEDICARE, SELFPAY ==
--- NOTE | ~2021-07-22 | XR_ITS ---
EXAMINATION: XR ribs RT 2V w CXR 2V EXAM DATE: 07/22/2021 15:35 INDICATION: Pleurodynia . TECHNIQUE: Frontal projection of the upper right ribs, frontal projection of the lower right ribs, ob lique projection of the right ribs, frontal and lateral chest x-ray(s) for interpretation. Comparison is made to prior examination from 04/18/2021. FINDINGS: There are right 6th and 7th rib fractures posterolaterally which are probably acute, not pr esent in April. Mild displacement of these. There may be an old right 10th rib fracture laterally. N o confluent consolidation, pneumothorax or pleural effusion suspected. Cardiomediastinal silhouette i s normal. There is tortuosity of the aorta. IMPRESSION: 1. Acute right 6th, 7th posterolateral rib fractures. Reviewed, dictated and finalized at location A. 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
== END ==
PROVIDERS: PCP Nurse Practitioner; Visit Provider Nurse Practitioner
DX: R07.81 Pleurodynia (principal); Q25.46 Tortuous aortic arch
CPT/HCPCS: 71046; 71100

== ENCOUNTER → 2021-08-13 11:42 | Outpatient (CLI) | payer MEDICARE, SELFPAY ==
--- NOTE | ~2021-08-13 | XR_ITS ---
. EXAMINATION: XR ribs RT 2V w CXR 2V DATE: 08/13/2021 12:13 INDICATION: Fracture of one rib, right side, initial encounter. TECHNIQUE: A frontal view of the chest and 2 views on 3 radiographs of the right ribs were obtained. COMPARISON: Chest and rib radiographs 07/22/2021, CT abdomen and pelvis 02/02/21 FINDINGS: Calcified right lung nodules and calcified right hilar lymph nodes are consistent with old granulomatous disease. No pleural effusion or pneumothorax. The heart size is normal. Again seen are fractures of right sixth and seventh ribs. There are old healed fractures of right 8th-10th ribs. IMPRESSION: 1. Subacute fractures of right sixth and seventh ribs. Reviewed, dictated and finalized at location A. 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
== END ==
PROVIDERS: PCP Internal Medicine; Visit Provider Nurse Practitioner
DX: S22.41XA Multiple fractures of ribs, right side, initial encounter for closed fracture (principal)
CPT/HCPCS: 71046; 71100

== ENCOUNTER → 2022-03-20 08:02 | Outpatient (CLI) | payer MEDICARE, SELFPAY ==
--- NOTE | ~2022-03-20 | XR_ITS ---
EXAMINATION: XR thoracic spine 2V DATE: 03/20/2022 08:38 INDICATION: Dorsalgia unspecified TECHNIQUE: AP, lateral and lateral swimmer's views of the thoracic spine were obtained. COMPARISON: 07/22/2021 FINDINGS: There are unchanged chronic compression fractures of T10 and T11. No acute fracture is iden tified. There is mild loss of intervertebral disc space height in the lower thoracic spine. Small deg enerative osteophytes project from the anterior endplates of multiple vertebral bodies. Severe cervic al spondylosis is noted. Calcified right hilar and mediastinal lymph nodes are consistent with old gr anulomatous disease. IMPRESSION: 1. Chronic compression fractures of T10 and T11 and mild thoracic spondylosis without acute findings. Reviewed, dictated and finalized at location B. IMPRESSION: 1. Chronic compression fractures of T10 and T11 and mild thoracic spondylosis w ithout acute findings.
--- NOTE | ~2022-03-20 | XR_ITS ---
EXAMINATION: XR lumbar spine 2-3V DATE: 03/20/2022 08:39 INDICATION: Low back pain TECHNIQUE: Anteroposterior, lateral, and bilateral oblique views of the lumbar spine, and cone-down l ateral view of the lumbosacral junction were obtained. COMPARISON: CT, 02/02/2021 FINDINGS: There is moderate loss of intervertebral disc space height at L4-5. The vertebral body heig hts are maintained. There is no fracture. There is moderate facet osteoarthritis of the lower lumbar spine. IMPRESSION: 1. Moderate lower lumbar spondylosis without acute findings or significant interval change. Reviewed, dictated and finalized at location B. IMPRESSION: 1. Moderate lower lumbar spondylosis without acute findings or significant inte rval change.
== END ==
PROVIDERS: PCP Nurse Practitioner; Visit Provider Nurse Practitioner
DX: M54.50 Low back pain, unspecified (principal); M47.816 Spondylosis without myelopathy or radiculopathy, lumbar region; M48.54XA Collapsed vertebra, not elsewhere classified, thoracic region, initial encounter for fracture
CPT/HCPCS: 72070; 72100

== ENCOUNTER → 2022-04-01 10:58 | Outpatient (CLI) | payer MEDICARE, SELFPAY ==
--- NOTE | ~2022-04-01 | CT_ITS ---
EXAMINATION: CT abdomen pelvis w con DATE: 04/01/2022 11:42 INDICATION: right groin pain TECHNIQUE: Computed tomography (CT) of the abdomen and pelvis was performed with 100 mL Omnipaque-350 intravenous contrast. Automated exposure control and iterative reconstruction technique were employe d. The dose-length product was 349.07 mGy-cm. COMPARISON: 02/02/2021. FINDINGS: Lower thorax: Coronary artery calcification. Bibasilar scar/atelectasis. Small hiatal hernia. Liver: Normal. Biliary/Gallbladder: Gallbladder is normal. No bile duct dilation. Pancreas: No mass or duct dilation. Spleen: Normal. Adrenals:No mass. Kidneys: 11 mm left renal pelvic stone. No renal mass or hydronephrosis. GI tract: No small or large bowel dilation. Appendix not visualized. Mesentery/Peritoneum: No ascites, mass, or free air. Retroperitoneum: No mass. Atherosclerotic abdominal aortic and/or arterial calcifications. Pelvis: Bladder wall thickening likely due to outlet compromise from prostatomegaly. Soft Tissues: Small fat-containing bilateral inguinal hernias. Bones: No acute osseous finding. IMPRESSION: Small fat-containing bilateral inguinal hernias. Nonobstructive 11 mm left renal pelvis stone. No acu te abdominopelvic process detected. Reviewed, dictated and finalized at location K. IMPRESSION: Small fat-containing bilateral inguinal hernias. Nonobstructive 11 mm left stella l pelvis stone. No acute abdominopelvic process detected.
[2022-04-07 10:30] LABS: Estimated Glomerular Filt Rate > 60
== END ==
PROVIDERS: PCP Internal Medicine; Visit Provider Nurse Practitioner
DX: R10.31 Right lower quadrant pain (principal); K40.90 Unilateral inguinal hernia, without obstruction or gangrene, not specified as recurrent; I25.10 Atherosclerotic heart disease of native coronary artery without angina pectoris; K44.9 Diaphragmatic hernia without obstruction or gangrene; N20.0 Calculus of kidney; R10.2 Pelvic and perineal pain
CPT/HCPCS: 36415; 74177; 82565; Q9967

== ENCOUNTER → 2022-06-04 13:11 | Outpatient (CLI) | payer MEDICARE, SELFPAY ==
--- NOTE | ~2022-06-04 | DEXA_ITS ---
Bone Density Report Name: GHISLAINE YOUNG Age: 71 Sex: Male Ethnicity: White Date of : 1950 Indication: height loss; prior fracture; Referring Provider: Jorge Snider Study: Bone densitometry was performed. Exam Date: June 04, 2022 Accession number: [id number] Bone Density: Region BMD T-score Z-score Classification AP Spine (L1-L4) 0.792 -2.7 -1.8 Osteoporosis Femoral Neck (Left) 0.691 -1.8 -0.6 Osteopenia Total Hip (Left) 0.705 -2.2 -1.5 Osteopenia Femoral Neck (Right) 0.580 -2.6 -1.4 Osteoporosis Total Hip (Right) 0.657 -2.5 -1.8 Osteoporosis Total Hip Mean 0.681 -2.4 -1.7 Osteopenia World Health Organization criteria for BMD impression classify patients as: Normal (T-score at or above -1.0), Osteopenia (T-score between -1.0 and -2.5), or Osteoporosis (T-score at or below -2.5). 10-year Fracture Risk: FRAX not reported because: Some T-score for Spine Total or Hip Total or Femoral Neck at or below -2.5 Prior hip or vertebral fracture Clinical Information Provided by Patient: Have had a previous hip or vertebral fracture Has had a low trauma fracture Smokes Has 3 or more alcoholic drinks per day Has used the following medications: Vitamin D Patient maximum height was 70 Does not regularly consume dairy products Drinks caffeinated beverages Impression: The patient has established osteoporosis, based on the Total Spine T-score and the existence of a prior fracture. The patient has risk factors, including: smoking, excessive alcohol use, previous fracture. Discussion: HIGH RISK OF FRACTURE. BONE DENSITY IS UNDESIRABLY LOW AT ONE OR MORE SKELETAL SITES, CONSISTENT WITH OSTEOPOROSIS. This patient's lowest T-score, in a patient who has previously fractured, meets the World Health Organization's (WHO) criteria for severe osteoporosis. In untreated patients, the risk of osteoporotic fracture increases approximately two-fold for each 1.0 SD decrease in T-score. Low bone density is not the only risk factor for fracture; also consider factors such as patient's age, frailty or poor health, risk of falling, risk of injury, previous osteoporotic fracture, family history of osteoporosis, cigarette smoking, low body weight, etc. Not everyone with low bone mineral density has osteoporosis; osteomalacia and other metabolic bone disorders should also be considered. Patients who have osteoporosis should be evaluated for specific diseases and conditions (secondary causes) that may cause or contribute to bone loss. The National Osteoporosis Foundation (NOF) recommends pharmacologic intervention for men with BMD at this level (a T-score of -2.5 or below). The patient should follow a healthful lifestyle (good nutrition with adequate calcium and vitamin D, and appropriate weight-bearing exercise). Follow-Up: Consider a
== END ==
PROVIDERS: PCP Internal Medicine; Visit Provider Internal Medicine
DX: S22.000A Wedge compression fracture of unspecified thoracic vertebra, initial encounter for closed fracture (principal); M85.89 Other specified disorders of bone density and structure, multiple sites; M81.0 Age-related osteoporosis without current pathological fracture
CPT/HCPCS: 77080

== ENCOUNTER 2022-06-09 11:00 | Outpatient (RCR) | payer MEDICARE, SELFPAY ==
--- NOTE | 2022-04-07 13:48 | PTOPEVAL ---
PHYSICAL THERAPY INITIAL EVALUATION. Thank you for referring Leoncio Queen to [facility].? The patient is scheduled to be seen for therapy? 2x/week for 4 weeks. Please review, sign, date and return this plan of care CARLOS. I agree with and certify that the following plan of care is medically necessary. Referring Physician Date Attending Provider: Monae Baron, TEXTILE COLORIST DYER-C *PT Outpatient Evaluation Start: 04/07/22 Evaluation Information Diagnosis dorsalgia Onset chronic Subjective Information Pt states balance and poor Query Text:As Reported By Patient/ gait are his main concerns, he Family is really fearful of falling. He states walking his become more of an effort and thought than it was before. When asked about his back, pt states it is sore all the time, but it isn't true pain. He has taken pain medication for his and states this didn't really help. Diagnostic Tests X-Rays For This Problem Yes: Chronic compression fx of T10 and T11 Pain Assessment Lower Back Reported Pain Level 2 Pain Description Soreness Pain Frequency Chronic,Continuous Lowest Pain Intensity 2 Greatest Pain Intensity 4 Pain Aggravating Factors Prolonged Position Lumbar ROM Lumbar Flexion (0-90) 45 Lumbar Flexion Active [place] Lumbar Extension (0-40) 0 Lateral Flexion able to reach lateral knee Query Text:Active Hands to: joints joaquin Lateral Rotation Right (0-45) 45 Lateral Rotation Left (0-45) 45 Lumbar ROM 75% of Normal Normal Lumbar Segmental Motion No Lumbar Comments stiff spinal movement throughout Lower Extremity Range of Motion General Lower Extremity Range of Motion WFL/Left,WFL/Right Lower Extremity Muscle Strength Testing Gross Lower Extremity Strength joaquin hip flexion 3+/5 joaquin knee flexion/extension 4/5 joaquin ankle dorsiflexion 3+/5 joaquin hip abduction - unable to hold test position joaquin hip extension- unable to lift leg in prone glute bridge - able to complete 5, increase instability Muscle Length Testing Left Hamstring Length -60 Right Hamstring Length -60 Right Prone Knee Flexor Muscle Length ( 90 Left Prone Knee
--- NOTE | 2022-04-13 09:32 | PCPTNOTE ---
On 04/13/22, the student, Rolando Dove, provided care and completed [facility] documentation on this patient. I have reviewed the student's documentation and agree with the findings.
--- NOTE | 2022-05-06 08:12 | PTOPEVAL ---
PHYSICAL THERAPY PROGRESS REPORT AND AQUATIC PLAN OF CARE. Thank you for referring Leoncio Queen to [facility].? The patient is scheduled to be seen for therapy? 2x/week for 4 weeks. Please review, sign, date and return this plan of care CARLOS. I agree with and certify that the following plan of care is medically necessary. Referring Physician Date Attending Provider: Monae Baron, BERTAC *PT Outpatient Evaluation Start: 04/07/22 Evaluation Information Diagnosis dorsalgia Onset chronic Subjective Information Pt reports good compliance Query Text:As Reported By Patient/ with her HEP. He states he has Family been walking for exercise. He states his walking is no where he expects it to be. Pain Assessment Lower Back Reported Pain Level 3 Greatest Pain Intensity 4 Cervical and Lumbar ROM Lumbar ROM Lumbar Flexion (0-90) 45 Lumbar Flexion Active [place] Query Text:Hands to: Lumbar Extension (0-40) 0 Lateral Flexion able to reach lateral knee Query Text:Active Hands to: joints joaquin Lateral Rotation Right (0-45) 45 Lateral Rotation Left (0-45) 45 Lumbar ROM 75% of Normal Normal Lumbar Segmental Motion No Lumbar Comments stiff spinal movement throughout Lower Extremity Range of Motion General Lower Extremity Range of Motion WFL/Left,WFL/Right Lower Extremity Muscle Strength Testing Gross Lower Extremity Strength joaquin hip flexion 3+/5 joaquin knee flexion/extension 4+/5 joaquin ankle dorsiflexion L 3+/5 R 4/5 joaquin hip abduction - unable to hold test position on L, 3/5 on R joaquin hip extension- 3+/5 ( improved from unable to lift in prone) glute bridge - able to complete 10, (inc from 5) w/ instability Muscle Length Testing Muscle Length Testing Right Prone Knee Flexor Muscle Length ( 90 Left Prone Knee Flexor Muscle Length ( 90 Posture Head/C-Spine Posture Forward Head Thoracic Spine Posture Flattened,Increased Kyphosis Palpation Assessment Palpation (+) tenderness to T11-T12 L>R (+) tenderness lumbar and low thoracic paraspinals L>R spasms with palpation Balance Assessment Cevallos Balance Assessment CEVALLOS Balance Evaluation Total Score (/56 38/56 Comments L tandem: 3s
--- NOTE | 2022-05-11 07:37 | PCPTNOTE ---
Patient called & cancelled scheduled appointment this date, patient's request.
--- NOTE | 2022-06-02 13:16 | PCPTNOTE ---
Patient called 30 mins after his appointment and realized he had the wrong time. He has been rescheduled.
--- NOTE | 2022-06-09 12:57 | PTOPDC ---
Assessment and note entered by Anh Mahan, PT, DPT Evaluation Information Assessment Status Discharge Diagnosis back pain Onset chronic Subjective Information Pt states he feels like he is not improving. He began to get emotion when discussing how his walking is not improving. He continues to report constant discomfort in his back. Reported Pain Level Pain Score 4: Self Report Assessment PT Clinical Summary Leoncio Weston presents to therapy today following 15 visits of skilled therapy including both aquatic therapy and traditional therapy. Today he reports minimal improvement and reports that his walking is the most limited, he also reports a constant back ache. Today he demonstrates very minimal progress during the TUG, 5xSTS, and gait speed assessments when compared to his initial visit. He also has only improved very minimally during his strength assessments. He reports good compliance with his HEP and daily walking. He has progressed minimal towards his therapy goals. He was educated on his therapy prognosis, secondary to this, Leoncio will be discharged from skilled therapy at this time due to lack of progress. He was instructed to continue his HEP upon discharge. Plan of Care PT Services Indicated No Treatment Frequency and to be d/c'ed Duration
== END 2022-06-09 15:14 | disposition home or self-care (01) ==
LOC: ANHPT 11:00
PROVIDERS: PCP Internal Medicine; Referring Provider Nurse Practitioner; Visit Provider Nurse Practitioner
DX: M54.9 Dorsalgia, unspecified (principal); G89.29 Other chronic pain
CPT/HCPCS: 97110; 97112; 97113; 97161; 97530

== ENCOUNTER 2022-06-26 14:09 | Outpatient (CLI) | payer MEDICARE, SELFPAY ==
--- NOTE | ~2022-06-26 | XR_ITS ---
EXAMINATION: XR hand RT min 3V DATE: 06/26/2022 14:20 INDICATION: Osteoarthritis. TECHNIQUE: 3 views of right hand were obtained. COMPARISON: None. FINDINGS: Bone alignment is normal. No fracture. There is moderate osteoarthritis of first carpometac arpal joint and severe osteoarthritis of second and third distal interphalangeal joints. There is mil d osteoarthritis of fourth and fifth distal interphalangeal joints. IMPRESSION: 1. Polyarticular osteoarthritis. Reviewed, dictated and finalized at location A.
== END 2022-06-26 14:10 ==
PROVIDERS: PCP Internal Medicine; Visit Provider Plastic Surgery
DX: M19.041 Primary osteoarthritis, right hand (principal)
CPT/HCPCS: 73130

== ENCOUNTER 2022-07-22 10:27 | Outpatient (CLI) | payer MEDICARE, SELFPAY ==
--- NOTE | 2022-07-22 10:39 | ECG_ITS ---
Measurements Intervals [place] Rate: 54 P: 82 [place]: 158 QRS: 9 QRSD: 85 T: 52 QT: 405 QTc: 386 Interpretive Statements SINUS BRADYCARDIA BASELINE ARTIFACT- I, II, III, AVR, AVL, AVF, V1-V6 BORDERLINE ECG NO PREVIOUS ECG AVAILABLE FOR COMPARISON Electronically Signed On 07-22-2022 10:51:02 IN STORE BANKER by Dylan Carver D.O.
== END 2022-07-22 10:28 | disposition home or self-care (01) ==
LOC: ANHSURGERY 10:30
PROVIDERS: PCP Internal Medicine; Visit Provider Plastic Surgery
DX: Z01.810 Encounter for preprocedural cardiovascular examination (principal); I10 Essential (primary) hypertension
CPT/HCPCS: 93005

== ENCOUNTER 2022-07-29 01:01 | Day surgery (SDC) | payer MEDICARE, SELFPAY ==
[2022-07-16 13:27] VITALS: BMI 18.4
--- NOTE | 2022-07-16 13:49 | PC.NURSE ---
Report to the Outpatient Waiting Room, entrance under the green pavilion located off [facility], at time __7:30AM on date __07/29/22 . Planned Procedure Time: __9:30AM . Time changes happen often and if your time is changed the preop area will call you the afternoon before. - You and your visitor will be asked to self-screen and do not enter if you have any COVID symptoms. - We encourage only one visitor and NO visitors under age 16 are allowed at this time. Your visitor will receive communication by the phone number that is given day of service. - The patient visitor is requested to social distance or may leave the building when not with patient due to restrictions. - A mask is required within the hospital. Patients may have clear liquids (water, carbonated beverages, clear teas, apple juice) until 3 hours prior to surgery with a maximum of 20 ounces. - No food from midnight until time of surgery Take the following medications with a SIP of water the morning of surgery: TYLENOL W/ CODEINE NEEDED Medications to discontinue per physician HOLD ALL VITAMINS/SUPPLEMENTS 3 DAYS PRE-OP Date to take last dose____07/25/22____ CONTINUE ELIQUIS PER DR LAZARO Please no make-up, nail wallisian, hairspray, perfume, deodorant, or body powder the day of surgery. No jewelry (including any body piercings) or valuables the day of surgery, leave them at home. Please take a shower or bath the night before, or the morning of, surgery with an antibacterial soap. Wear comfortable, loose fitting clothing. Children are encouraged to wear pajamas. - Jewelry must be removed prior to entering the operating room. Rings and piercings that are not removed may be cut off. - The hospital will not accept responsibility for valuables. - Please leave all valuables, including medications, at home the day of surgery. If you are going home after surgery, a licensed auto transport driver must drive you home. - NO public transportation without another adult. - We recommend that an adult stay with you for 24 hours following discharge. - We also recommend that you do not drive, make important decision, drink alcoholic beverages, or take any drugs that were not prescribed by your health care provider for at least 24 hours after your discharge time. Follow any additional instructions given to you from your surgeon. If you or anyone in your household have experienced Covid symptoms in the past week, please notify your surgeon or the nurse liaison at the phone number below for possible testing. Telephone instructions given to __PATIENT and asked if any additional questions and then verbalized understanding. Patient advised to call surgeon office or pre surgery nurse liaison [phone] if any additional questions.
[2022-07-29] VITALS (8 sets, daily range): BP systolic 93–108; BP diastolic 49–76; PULSE 57–71; RESP 14–20; TEMP 36.5–36.8; O2SAT 100
--- NOTE | ~2022-07-29 | XR_ITS ---
XR surgery orthopedic DATE: 07/29/2022 10:57 INDICATION: Arthroplasty right thumb TECHNIQUE: 2 spot C-arm images of the rest 83.9 seconds fluoroscopy time 3.13 mGy COMPARISON: 06/26/2022 right hand FINDINGS: There is surgical resection of the trapezium bone since 06/26/2022. IMPRESSION: Surgical resection of trapezium bone Reviewed, dictated and finalized at [facility]. Reviewed, dictated and finalized at location A. ET WORKER
--- NOTE | 2022-07-29 07:13 | WPDHPUPDATE1 ---
History and Physical Update Update Date/Time: 07/29/22 07:13 History and Physical has been reviewed, including an updated exam of the patient. There are NO changes in the patient's condition. Risks, benefits, and alternatives have been discussed and questions answered. Patient agrees to proceed with procedure.
--- NOTE | 2022-07-29 07:22 | WPDANESEPPF ---
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 Patient Data Age: 71 Gender: M Height: 1.73 m Weight: 55 kg Allergies Allergy/AdvReac Type Severity Reaction Status Date / Time No Known Allergies Allergy Verified 07/16/22 13:21 Home Medications Medication Instructions Recorded Confirmed Type cyanocobalamin (vitamin B-12) 1,000 mcg PO DAILY 09/07/19 07/16/22 History 1,000 mcg capsule cetirizine 10 mg tablet (Zyrtec) 10 mg PO DAILY PRN Sinus Symptoms 02/12/21 07/16/22 History cholecalciferol (vitamin D3) 50 50 mcg PO DAILY 12/29/21 07/16/22 History mcg (2,000 unit) tablet apixaban 5 mg tablet (Eliquis) 5 mg PO BID #180 tabs 03/02/22 07/16/22 Rx lisinopril 2.5 mg tablet 2.5 mg PO DAILY #90 tabs 03/27/22 07/16/22 Rx acetaminophen 300 mg-codeine 30 mg 1 tablet PO Q8H PRN pain #90 tabs 05/06/22 07/16/22 Rx tablet alendronate 35 mg tablet 35 mg PO WEEKLY #12 tabs 06/08/22 07/16/22 Rx allopurinol 100 mg tablet 200 mg PO QAM 07/16/22 07/16/22 History ECG: Date of Service: 07/22/22 Procedure(s): CA 12 lead EKG Accession Number(s): [id number] cc: ~ ? Measurements Intervals? [place]? Rate: ? 54 ? P:? 82 [place]: ? 158? QRS:? 9 QRSD: ? 85 ? T:? 52 QT: ? 405? QTc:? 386? Interpretive Statements SINUS BRADYCARDIA BASELINE ARTIFACT- I, II, III, AVR, AVL, AVF, V1-V6 BORDERLINE ECG NO PREVIOUS ECG AVAILABLE FOR COMPARISON Electronically Signed On 07-22-2022 10:51:02 CONE EXAMINER by Dylan Carver D.O. Patient hx anesthesia problems: none Family hx anesthesia problems: none Results Review: All pre-operative results and documents have been reviewed as part of the pre-operative evaluation. [facility] Past Medical History Medical History (Updated 07/29/22 @ 07:23 by Sunny Gongora MD) Abnormal CT scan, gastrointestinal tract Alcohol abuse Benign essential hypertension Colon cancer screening DVT (deep venous thrombosis) Rt knee in '01 and left groin '03 Elevated bilirubin Gout Hiatal hernia Hypertension Impairment of balance Infection Leukocytosis Screening for cardiovascular condition Seasonal allergic rhinitis Upper abdominal pain Surgical History Surgical History History of appendectomy 1977 Family History Family History Sibling , Cindy Diabetes mellitus Hyperlipemia Other Diabetes mellitus Nephew Father Hypertension Pneumonia Mother Cerebrovascular accident Hyperlipemia Social History Social History Social History: Patient would like to be a full code and he would also like his sister Kayleigh Handy [phone] to be the decision maker if needed. Smoking status: Never smoker Second hand tobacco smoke exposure: Yes Alcohol intake: current Drinks per week: 28 Alcohol use details: Drinks about 3-4 beers per night 12oz Bottles Substance use: never Substance use type: does not use Living arrangements: alone Additional living arrangements comments: Has a girlfriend for the last 30 years[facility] does not have any pets at home. 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
[2022-07-29] MEDS: KETOROLAC 15 MG/ML VIAL (*BKC) IV PUSH (08:00)
[2022-07-29] MEDS: ACETAMINOPHEN 500 MG TABLET 1000 MG PO (08:00)
[2022-07-29] MEDS: LACTATED RINGERS 1,000 ML 30 ML IV CONT (08:00)
[2022-07-29] MEDS: LIDO 2%/EPINEPHRINE 1:100,000 50 ML VIAL 10 ML INFILTRATE (09:07)
[2022-07-29] MEDS: ceFAZolin 2 GM/D5W 50 ML 2 GM/50 ML BAG IVPB (09:50)
[2022-07-29] MEDS: BACITRACIN OINTMENT 15 GM TUBE 1 APPLIC TOPICAL (09:53)
--- NOTE | 2022-07-29 11:34 | SUR.PHASEI ---
1132: Simple mask removed.
--- NOTE | 2022-07-29 12:27 | SUR.PHASEII ---
pt meets discharge criteria. now waiting on dr spencer to put instructions in
--- NOTE | 2022-07-29 18:09 | P.OP_ITS ---
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 Surgeon Sourav Hopson MD Typing Office Worker [place] Anesthesia General Description of Procedure the patient's right thumb was marked in the holding area with his consent some questions were answered he was taken to the operating room and was placed supine the operating table. He was given general endotracheal anesthesia and the right upper upper extremity was prepped and draped in usual fashion. the site was marked for the incision. The extremity was exsanguinated and the tourniquet inflated to 220 mm mmHg. The site was locally infiltrated with 2% lidocaine with epinephrine. The incision was made as marked and dissection revealed the extensor tendons and several notable cutaneous nerves traversing the area. The largest nerve was retained with a vessel loop during the procedure. The interspace between the EPB and the abductor pollicis was incised exposing the joint. The joint capsule was incised and the trapezium was dissected around its periphery with a knife and Yoel ruby. the trapezium was imaged several times with an instrument placed along its proximal or ulnar margin to confirm the course of the resection. It was excised piecemeal using a McGlamry elevator and a rongeur. The radial proximal facet of the 2nd metacarpal was visualized. The guidewire was passed through that under fluoroscopy. The fiber tac guide was placed over that and advanced into the medullary canal. The guidewire was removed and the fiber tack suture tape was inserted and tightened. That anchor was stable. the drill guide for the 1st metacarpal swivel lock was placed and imaged. The swivel lock was inserted into that opening after capturing the suture tape. the 1st metacarpal was then imaged in distraction and compression the construct was stable the vessel loop was removed from the nerve there was no significant capsular tissue to reconstruct. The skin was closed with intradermal 3-0 Vicryl and running 5 0 nylon. Appropriate bandage including cast padding were applied and a thumb spica splint applied over that fixed with an Corey wrap. 8 milliliter of 0.25% Marcaine were injected prior to applying the dressing the tourniquet was released as the skin was being closed. The patient is discharged with a prescription for hydrocodone 5 / 325 number 10. He has received 2 g of Ancef preop. Implants Arthrex suture tape and a swivel lock. Estimated Blood Loss 10 Drains No Packing No Pathology None sent Complications No immediate complications Condition Stable Disposition PACU
== END 2022-07-29 13:29 | disposition home or self-care (01) ==
PROVIDERS: PCP Internal Medicine; Visit Provider Plastic Surgery
PROC: (CPT 25447; principal; 2022-07-29 09:30)
DX: M18.11 Unilateral primary osteoarthritis of first carpometacarpal joint, right hand (principal); I10 Essential (primary) hypertension; M10.9 Gout, unspecified; Z86.718 Personal history of other venous thrombosis and embolism; Z79.01 Long term (current) use of anticoagulants
CPT/HCPCS: 25447; 93005; 99199; A9270; C1713; J0690; J1885; J2250; J2405; J2704; J3010; J7120

== ENCOUNTER → 2022-08-20 11:11 | Outpatient (CLI) | payer MEDICARE, SELFPAY ==
--- NOTE | ~2022-08-20 | CT_ITS ---
EXAMINATION: CT abdomen pelvis wo/w con DATE: 08/20/2022 12:02 INDICATION: Gross hematuria TECHNIQUE: Computed tomography (CT) of the abdomen and pelvis was performed without intravenous contr ast. Automated exposure control and iterative reconstruction technique were employed. Exam dose: 659 .41 mGy-cm total exam DLP. COMPARISON: 04/01/2022 CT abdomen pelvis FINDINGS: There is mild discoid atelectasis or scarring in the dependent lower lobes. No infiltrate o r consolidation at the lung bases. Normal heart size. No pericardial or pleural effusion. Very small sliding hiatal hernia. The liver, gallbladder, bile ducts, spleen, pancreas, pancreatic duct and adrenal glands are unremark able. No renal mass lesion is detected. 7.4 x 9.9 x 12.2 mm proximal left ureteral calculus with attenuation of 417 Hounsfield units. There i s mild proximal left hydroureteronephrosis. No other urinary tract calculus. There is atherosclerotic calcification but normal caliber of the abdominal aorta. No intraperitoneal or retroperitoneal or pelvic mass lesion or adenopathy or ascites is noted. The urinary bladder is unremarkable. There is prostate enlargement. Redundant sigmoid colon and splenic flexure. No bowel obstruction, bowel wall thickening, pneumatosis or intraperitoneal free air is detected. Small fat-containing inguinal hernias, right larger than left. Small fat-containing umbilical hernia. No suspicious osteolytic or osteoblastic lesions. IMPRESSION: 7.4 x 9.9 x 12.2 mm proximal left ureteral calculus (417 Hounsfield units) with mild pro ximal left hydroureteronephrosis Prostate enlargement Very small sliding hiatal hernia Reviewed, dictated and finalized at [facility]. Reviewed, dictated and finalized at location B. EKEEPING STAFF IMPRESSION: 7.4 x 9.9 x 12.2 mm proximal left ureteral calculus (417 Hounsfiel d units) with mild proximal left hydroureteronephrosis Prostate enlargement Very small sliding hiatal hernia
[2022-08-20 11:41] LABS: Estimated Glomerular Filt Rate > 60
== END ==
PROVIDERS: PCP Internal Medicine; Visit Provider Internal Medicine
DX: R31.0 Gross hematuria (principal); N40.0 Benign prostatic hyperplasia without lower urinary tract symptoms; K44.9 Diaphragmatic hernia without obstruction or gangrene; N20.1 Calculus of ureter
CPT/HCPCS: 74178; Q9967

== ENCOUNTER 2022-08-24 14:12 | Outpatient (CLI) | payer MEDICARE, SELFPAY ==
[2022-08-24 15:16] LABS: INR 1.5; Prothrombin Time 17.6 Seconds (11.1-14.7)
[2022-08-24 15:17] LABS: Partial Thromboplastin Time 30.4 SECONDS (22.3-36.8)
== END 2022-08-24 14:13 | disposition home or self-care (01) ==
PROVIDERS: PCP Internal Medicine; Visit Provider Urology
DX: Z01.812 Encounter for preprocedural laboratory examination (principal); N20.1 Calculus of ureter
CPT/HCPCS: 36415; 85610; 85730; 87086

== ENCOUNTER 2022-08-27 00:23 | Day surgery (SDC) | payer MEDICARE, SELFPAY ==
[2022-08-24 12:26] VITALS: BMI 18.4
--- NOTE | 2022-08-24 12:51 | PC.NURSE ---
Report to the Outpatient Waiting Room, entrance under the green pavilion located off [facility], at time _9:30AM on date __08/27/22 . Planned Procedure Time: __11:30AM . Time changes happen often and if your time is changed the preop area will call you the afternoon before. - You and your visitor will be asked to self-screen and do not enter if you have any COVID symptoms. - Only one visitor is requested with a max of two and NO children visitors are allowed at this time. - The patient visitor may be requested to leave or wait in car when not with patient due to distancing restrictions. - A mask is optional within the hospital. Patients may have clear liquids (water, carbonated beverages, clear teas, apple juice) until 3 hours prior to surgery with a maximum of 20 ounces. - No food from midnight until time of surgery Take the following medications with a SIP of water the morning of surgery: ___NONE Medications to discontinue per physician ___HOLD ELIQUIS 2 DAYS PRE-OP PER DR BARKER- LAST DOSE 08/24/22, HOLD ALL VITAMINS/SUPPLEMENTS 3 DAYS PRE-OP- LAST DOSE 08/23/22 Please no make-up, nail austrian, hairspray, perfume, deodorant, or body powder the day of surgery. No jewelry (including any body piercings) or valuables the day of surgery, leave them at home. Please take a shower or bath the night before, or the morning of, surgery with an antibacterial soap. Wear comfortable, loose fitting clothing. Children are encouraged to wear pajamas. - Jewelry must be removed prior to entering the operating room. Rings and piercings that are not removed may be cut off. - The hospital will not accept responsibility for valuables. - Please leave all valuables, including medications, at home the day of surgery. If you are going home after surgery, a licensed non cdl driver must drive you home. - NO public transportation without another adult if you receive anesthesia. - We recommend that an adult stay with you for 24 hours following discharge. - We also recommend that you do not drive, make important decision, drink alcoholic beverages, or take any drugs that were not prescribed by your health care provider for at least 24 hours after your discharge time. Follow any additional instructions given to you from your surgeon. If you or anyone in your household have experienced Covid symptoms in the past week, please notify your surgeon or the nurse liaison at the phone number below for possible testing. Telephone instructions given to __PATIENT and asked if any additional questions and then verbalized understanding. Patient advised to call surgeon office or pre surgery nurse liaison [phone] if any additional questions.
[2022-08-27] VITALS (7 sets, daily range): BP systolic 117–151; BP diastolic 69–81; PULSE 52–68; RESP 12–16; TEMP 36.4–37; O2SAT 100
--- NOTE | ~2022-08-27 | CT_ITS ---
EXAMINATION: CT abdomen pelvis wo con DATE: 08/27/2022 11:57 INDICATION: Ureteral stone TECHNIQUE: Computed tomography (CT) of the abdomen and pelvis was performed without intravenous contr ast. The dose-length product (DLP) was 167.22 mGy-cm. Automated exposure control and iterative recons truction technique were employed. COMPARISON: 08/20/2022 FINDINGS: Minimal dependent atelectasis is present in the lung bases. The heart size is normal. There are healed left posterior rib fractures. Punctate calcifications in an otherwise normal spleen likel y represent healed granulomatous disease. The liver, pancreas, gallbladder, and adrenal glands are no rmal. There is a 5 mm x 12 mm stone at the left ureteropelvic junction which causes mild hydronephros is. The right kidney is unremarkable. There is calcified atherosclerosis of the aorta and many of the other arteries. No pathologically enlarged abdominal or pelvic lymph nodes are identified. There is no free intraperitoneal gas or evidence of bowel obstruction. The mobile cecum resides anterior to th e rectum on the current study. There is moderate lumbar spondylosis. IMPRESSION: 1. 5 mm x 12 mm stone of the left ureteropelvic junction causing mild hydronephrosis. Reviewed, dictated and finalized at location A. ULATING MACHINE OPERATOR IMPRESSION: 1. 5 mm x 12 mm stone of the left ureteropelvic junction causing mild hydroneph rosis.
--- NOTE | ~2022-08-27 | XR_ITS ---
Supine and upright views of the abdomen Clinical history: Renal stone, lithotripsy Findings: Bowel gas pattern is nonspecific. No evidence for obstruction or free air. No abnormal mass lesion or calcification is seen. Osseous structures are intact. Impression: Previously identified left ureteral stone not clearly visualized. This could be due to interval passa ge of stone fragments following lithotripsy versus obscuration by bowel gas/stool. Reviewed, dictated and finalized at location [] CTOR OF INVESTIGATIONS Impression: Previously identified left ureteral stone not clearly visualized. This could be due to interval passage of stone fragments following lithotripsy versus obscur ation by bowel gas/stool.
--- NOTE | 2022-08-27 06:33 | WPDHPUPDATE1 ---
History and Physical Update Update Date/Time: 08/27/22 06:33 History and Physical has been reviewed, including an updated exam of the patient. There are NO changes in the patient's condition. Risks, benefits, and alternatives have been discussed and questions answered. Patient agrees to proceed with procedure.
[2022-08-27] MEDS: LACTATED RINGERS 1,000 ML 30 ML IV CONT (10:15)
[2022-08-27 10:28] LABS: INR 1.2; Prothrombin Time 14.7 Seconds (11.1-14.7)
--- NOTE | 2022-08-27 11:51 | SUR.PREOP ---
To CT per stretcher.
--- NOTE | 2022-08-27 12:17 | WPDANESEPPF ---
Anes - Initial Pre Proc Eval Procedure: Operation Date: 08/27/22 11:30 Proposed Procedures p Left Extracorporeal Shock Wave Lithotripsy - Carlos Duran MD s Cystoscopy, Possible Left Stent Placement - Carlos Duran MD Date/Time: 08/27/22 12:17 Surgeon: Carlos Duran MD Pre Op Diagnosis: left ureteral stone 12mm Patient Data Age: 71 Gender: M Height: 1.73 m Weight: 55.8 kg Last Vital Signs Temp 98.6 F 08/27/22 10:16 Pulse 67 08/27/22 10:16 Resp 16 08/27/22 10:16 BP 117/69 08/27/22 10:16 Pulse Ox 100 08/27/22 10:16 O2 Del Method Room Air 08/27/22 10:16 Allergies Allergy/AdvReac Type Severity Reaction Status Date / Time No Known Allergies Allergy Verified 08/27/22 09:50 Home Medications Medication Instructions Recorded Confirmed Type cyanocobalamin (vitamin B-12) 1,000 mcg PO DAILY 09/07/19 08/27/22 History 1,000 mcg capsule cetirizine 10 mg tablet (Zyrtec) 10 mg PO DAILY 02/12/21 08/27/22 History apixaban 5 mg tablet (Eliquis) 5 mg PO BID #180 tabs 03/02/22 08/27/22 Rx acetaminophen 300 mg-codeine 30 mg 1 tablet PO Q8H PRN pain #90 tabs 05/06/22 08/27/22 Rx tablet alendronate 35 mg tablet 35 mg PO WEEKLY #12 tabs 06/08/22 08/27/22 Rx allopurinol 100 mg tablet 200 mg PO DAILY 08/24/22 08/27/22 History calcium carbonate 600 mg-vitamin 1 tablet PO BID 08/24/22 08/27/22 History D3 20 mcg (800 unit) chewable tablet (Caltrate 600 plus D) lisinopril 2.5 mg tablet 2.5 mg PO QAM 08/24/22 08/27/22 History Laboratory Tests 08/27/22 10:12 PT 14.7 Seconds Seconds (11.1-14.7) INR 1.2 Patient hx anesthesia problems: none Family hx anesthesia problems: none Results Review: All pre-operative results and documents have been reviewed as part of the pre-operative evaluation. [facility] Past Medical History Medical History (Updated 07/29/22 @ 07:23 by Sunny Gongora MD) Abnormal CT scan, gastrointestinal tract Alcohol abuse Benign essential hypertension Colon cancer screening DVT (deep venous thrombosis) Rt knee in ' and left groin '03 Elevated bilirubin Gout Hiatal hernia Hypertension Impairment of balance Infection Leukocytosis Screening for cardiovascular condition Seasonal allergic rhinitis Upper abdominal pain Surgical History Surgical History History of appendectomy 1977 Family History Family History Sibling , Cindy Diabetes mellitus Hyperlipemia Other Diabetes mellitus Nephew Father Hypertension Pneumonia Mother Cerebrovascular accident Hyperlipemia Social History Social History Social History: Patient would like to be a full code and he would also like his sister Kayleigh Handy [phone] to be the decision maker if needed. Smoking status: Current every day smoker Tobacco type: cigars Second hand tobacco smoke exposure: Yes Additional smoking assessment comments: SMOKES A CIGAR DAILY X30 YRS Alcohol intake: current Drinks per week: 21 Alcohol use details: Drinks about 3-4 beers per night 12oz Bottles Substance use: never Substance use type: does not use Living arrangements: alone Additional living arrangements comments: Has a girlfriend for the last 30 years. [facility] Patient does not have any pets at home. 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
[2022-08-27] MEDS: ceFAZolin 2 GM/D5W 50 ML 2 GM/50 ML BAG IVPB (12:18)
--- NOTE | 2022-08-27 12:53 | W.PM.PROC2 ---
Procedure Note - Detailed Date of Procedure 08/27/22 Pre-op Diagnosis left ureteral stone (12mm) Post-op Diagnosis Same Procedure Performed Cystoscopy, left retrograde pyelography, left ESWL. Surgeon Carlos Duran MD Anesthesia General Description of Procedure increased brought to the operative suite was prepped draped in routine sterile fashion while in a supine position. Fluoroscopy is unable to reliably identify his 12 mm left mid ureteral stone. I did cystoscopy with a 16 F flexible cystoscope. He has moderate lateral lobe hyperplasia with a small median lobe of this prostate. The bladder was trabeculated but there was no intravesical foreign body neoplasm. He has a single orthotopic ureteral orifice bilaterally. Advanced a 0.035 in glidewire in the left renal pelvis and placed the angiographic catheter. Retrograde pyelography that clearly outlines the large mid ureteral calculus. A total of 3000 shocks were delivered a power setting of 6. The into the procedure I replaced the angiographic catheter with the 4.8 F variable length double-J ureteral stent. Scopes wire was removed the patient was taken recovery room good condition. Drains Yes Packing No Pathology None sent Complications No immediate complications Disposition PACU
[2022-08-27] MEDS: oxyCODONE HCL (*CRX) 5 MG TAB IR PO (15:16)
== END 2022-08-27 15:27 | disposition home or self-care (01) ==
PROVIDERS: PCP Internal Medicine; Visit Provider Urology
PROC: (CPT 50590; principal; 2022-08-27 11:30)
PROC: (CPT 52352; 2022-08-27 11:30)
DX: N13.2 Hydronephrosis with renal and ureteral calculous obstruction (principal); I10 Essential (primary) hypertension; M10.9 Gout, unspecified; Z86.718 Personal history of other venous thrombosis and embolism; Z79.01 Long term (current) use of anticoagulants; F17.290 Nicotine dependence, other tobacco product, uncomplicated
CPT/HCPCS: 50590; 36415; 74018; 74176; 85610; 85730; 87086; A9270; C1758; C1769; C2617; J0690; J1100; J2250; J2405; J2704; J3010; J7030; J7120

== ENCOUNTER 2022-12-03 10:30 | Outpatient (RCR) | payer MEDICARE, SELFPAY ==
--- NOTE | 2022-09-15 15:43 | OTOPEVAL1 ---
Assessment and note entered by Toi Abbott, OTR/L, CHT Evaluation Information Assessment Status Evaluation Diagnosis s/p resection arthroplasty right trapezium with Arthrex Internal Brace Onset 07/29/22 Subjective Information Patient reports he has been wearing his immobilizer since the surgery. States he doesn't have much pain. Is able to use his hand in the immobilizer for light ADL tasks, but nothing heavy just yet. Reports stiffness and pain when moving his hand/thumb outside of the immobilizer. Reported Pain Level Pain Score 2: Self Report Additional Pain Score Comments No pain at rest. Slight increase in pain with active ROM exercises, particularly with thumb radial abduction. Assessment OT Clinical Summary Patient presents ~6 weeks following trapezium resection arthroplasty with Arthrex internal brace with decreased right and use due to stiffness, pain, and weakness. Skilled OT indicated for HEP instruction and progression, ROM, functional therapeutic exercise, and strengthening to facilitate optimal hand use. Plan of Care Interventions Therapeutic Exercise,Manual Therapy,Therapeutic Activities,Hot Pack/Cold Pack,Paraffin OT Services Indicated Yes Treatment Frequency and 1-2x/week for 4 weeks Duration These treatments will address the objective and functional deficits as defined above. The patient will be advanced safely and appropriately in order for the patient to progress towards his/her prior level of function. Additional exercises will be introduced and as well as a comprehensive home exercise program upon discharge, if needed, ?to ensure carryover of functional gains achieved in the clinic. This treatment plan has been reviewed and agreement upon by the patient.
--- NOTE | 2022-10-15 13:41 | BUOTOPEVAL ---
Assessment and note entered by Toi Abbott, OTR/L, CHT Evaluation Information Assessment Status Progress Diagnosis s/p resection arthroplasty right trapezium with Arthrex Internal Brace Onset 07/29/22 Subjective Information Patient reports that he has been weaning out of his immobilizer for more tasks, but continues to feel the need to wear it for support. His functional ROM has returned to normal limits. 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 compared to 52 lbs. on the left. All pinches on the right hand are measuring 0 lbs. today. Reported Pain Level Pain Score 2: Self Report Additional Pain Score Comments Reports pain localized to the right thumb, points to MCP joint and surgical site. Reports pain drops to 0/10 with heat/paraffin. Assessment OT Clinical Summary Patient presents ~10 weeks following trapezium resection arthroplasty with arthrex internal brace . He has participated in 5 therapy sessions focused on improved functional ROM and strength, manual therapy, as well as utilizing modalities for pain and stiffness. He is making progress toward therapy goals - ROM is WFL and he is able to tolerate light strengthening. Strength continues to be grossly weak and he will benefit from continued skilled OT for HEP instruction and progression, functional therapeutic exercise, and progressive strengthening to facilitate optimal hand use. Plan of Care Interventions Therapeutic Exercise,Manual Therapy,Therapeutic Activities,Hot Pack/Cold Pack,Paraffin OT Services Indicated Yes Treatment Frequency and 1x/week for 3 additional weeks Duration These treatments will address the objective and functional deficits as defined above. The patient will be advanced safely and appropriately in order for the patient to progress towards his/her prior level of function. Additional exercises will be introduced and as well as a comprehensive home exercise program upon discharge, if needed, ?to ensure carryover of functional gains achieved in the clinic. This treatment plan has been reviewed and agreement upon by the patient.
--- NOTE | 2022-11-03 12:56 | OTOPPROG ---
Assessment and note entered by Toi Abbott, OTR/L, CHT Evaluation Information Assessment Status Progress Diagnosis s/p resection arthroplasty right trapezium with Arthrex Internal Brace Onset 07/29/22 Subjective Information Patient reports he is no longer wearing his immobilizer. His functional ROM continues to be WNL. He reports soreness in the thumb joints with griping or pinching with resistance. Reports 8/10 pain with pinching or any sort of resistance with the thumb, such as when opening a jar. He tends to avoid using the putty because of the pain and soreness with pinching. He has difficulties picking up his cell phone and cleaning his glasses with a lens wipe. 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 compared to 52 lbs. on the left. All pinches on the right hand continue to measure 0 lbs. Assessment OT Clinical Summary Patient presents ~13 weeks following trapezium resection arthroplasty with arthrex internal brace . He has participated in 8 therapy sessions focused on improved functional ROM and strength, manual therapy, as well as utilizing modalities for pain and stiffness. He is making progress toward therapy goals - ROM is WFL and he is able to tolerate light strengthening. He continues to have difficulties with functional tasks such as picking up his cell phone, opening jars, and any pinching tasks. He is limited by strength and joint pain at the MCP joint. He will benefit from conintued skilled OT for HEP instruction and progression, functional therapeutic exercise, and progressive strengthening to facilitate optimal hand use. Plan of Care Interventions Therapeutic Exercise,Manual Therapy,Therapeutic Activities,Hot Pack/Cold Pack,Ultrasound,Paraffin OT Services Indicated Yes Treatment Frequency and 1x/week for 4 weeks Duration These treatments will address the objective and functional deficits as defined above. The patient will be advanced safely and appropriately in order for the patient to progress towards his/her prior level of function. Additional exercises will be introduced and as well as a comprehensive home exercise program upon discharge, if needed, ?to ensure carryover of functional gains achieved in the clinic. This treatment plan has been reviewed and agreement upon by the patient.
--- NOTE | 2022-12-03 11:18 | OTOPDC ---
Assessment and note entered by Toi Abbott, OTR/L, CHT Evaluation Information Diagnosis s/p resection arthroplasty right trapezium with Arthrex Internal Brace Onset 07/29/22 Subjective Information Patient reports reduced pain with pinching tasks. 4 weeks ago he was having 8/10 pain with any sort of pinching. Now he is reporting this has reduced to 3/10. 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 He is now using his thumb during all functional tasks. 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 All pinches on the right hand continue to measure 0 lbs. Reported Pain Level Pain Score 0: Self Report Additional Pain Score Comments No pain at rest. Pain with resisted pinching, reporting 3/10 at worst. Assessment OT Clinical Summary Patient is s/p right trapezium resection arthroplasty with arthrex internal brace. He has participated in 12 therapy sessions focused on improved functional ROM and strength, manual therapy, as well as utilizing modalities for pain and stiffness. He has make excellent progress - ROM has returned to normal limits and gross mushroom press operator strength is WFL, now. He continues to have diminished pinch strengths as all pinches continue to measure 0 lbs. on the pinch gauge. Reviewed his pinching HEP today. He admits to not doing the putty as much as he's supposed to. Recommended increased compliance with this to help build pinch strength over time. He verbalizes and demonstrates excellent understanding of all exercises. Discharging today with patient independent with HEP. Plan of Care OT Services Indicated No
== END 2022-12-03 12:05 | disposition home or self-care (01) ==
LOC: ANHOT 10:30
PROVIDERS: PCP Internal Medicine; Visit Provider Plastic Surgery
DX: Z48.89 Encounter for other specified surgical aftercare (principal)
CPT/HCPCS: 97018; 97035; 97110; 97140; 97165; 97530

== ENCOUNTER 2023-04-15 06:20 | Day surgery (SDC) | payer MEDICARE, SELFPAY ==
[2023-03-30 09:25] VITALS: BMI 19.1
[2023-04-15 06:42] VITALS: BMI 19.0
[2023-04-15 06:46] VITALS: BP 120/72; PULSE 57; RESP 18; TEMP 36.9; O2SAT 100
[2023-04-15] MEDS: LACTATED RINGERS 1,000 ML 150 ML IV CONT (07:22)
--- NOTE | 2023-04-15 07:30 | WPDANESEPPF ---
Anes - Initial Pre Proc Eval Procedure: Operation Date: 04/15/23 08:00 Proposed Procedures p Screening Colonoscopy - Miguel Corona MD Date/Time: 04/15/23 07:30 Surgeon: Miguel Corona MD Pre Op Diagnosis: Neoplasm Screening Patient Data Age: 72 Gender: M Height: 1.73 m Weight: 56.8 kg Last Vital Signs Temp 36.9 C 04/15/23 06:46 Pulse 57 L 04/15/23 06:46 Resp 18 04/15/23 06:46 BP 120/72 04/15/23 06:46 Pulse Ox 100 04/15/23 06:46 O2 Del Method Room Air 04/15/23 06:46 Allergies Allergy/AdvReac Type Severity Reaction Status Date / Time No Known Allergies Allergy Verified 04/15/23 06:40 Home Medications Medication Instructions Recorded Confirmed Type cyanocobalamin (vitamin B-12) 1,000 mcg PO DAILY 09/07/19 04/15/23 History 1,000 mcg capsule cetirizine 10 mg tablet (Zyrtec) 10 mg PO DAILY 02/12/21 04/15/23 History apixaban 5 mg tablet (Eliquis) 5 mg PO BID #180 tabs 03/02/22 04/15/23 Rx alendronate 35 mg tablet 35 mg PO WEEKLY #12 tabs 06/08/22 04/15/23 Rx allopurinol 100 mg tablet 200 mg PO DAILY 08/24/22 04/15/23 History calcium carbonate 600 mg-vitamin 1 tablet PO BID 08/24/22 04/15/23 History D3 20 mcg (800 unit) chewable tablet (Caltrate 600 plus D) Patient hx anesthesia problems: none Family hx anesthesia problems: none Results Review: All pre-operative results and documents have been reviewed as part of the pre-operative evaluation. [facility] Past Medical History Medical History Abnormal CT scan, gastrointestinal tract Abnormal weight loss Alcohol abuse Anemia Benign essential hypertension Colon cancer screening Decreased appetite DVT (deep venous thrombosis) Rt knee in '01 and left groin '03 Elevated bilirubin Encounter for screening colonoscopy Gout Hiatal hernia Hiatal hernia Hypertension Impairment of balance Infection Leukocytosis detention current use of anticoagulant Schatzki's ring Screening for cardiovascular condition Seasonal allergic rhinitis Upper abdominal pain Surgical History Surgical History History of appendectomy 1977 Family History Family History Sibling , Cindy Diabetes mellitus Hyperlipemia Other Diabetes mellitus Nephew Father Hypertension Pneumonia Mother Cerebrovascular accident Hyperlipemia Social History Social History Social History: Patient would like to be a full code and he would also like his sister Kayleigh Handy [phone] to be the decision maker if needed. Smoking status: Current every day smoker Tobacco type: cigars Second hand tobacco smoke exposure: Yes Additional smoking assessment comments: SMOKES 1 CIGAR/DAY Alcohol intake: current Drinks per week: 14 Alcohol use details: 3-4 beers day Substance use: never Substance use type: does not use Living arrangements: alone Additional living arrangements comments: Has a girlfriend for the last 30 years[facility] Patient does not have any pets at home. 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
--- NOTE | 2023-04-15 07:31 | WPDANESEPPF ---
Anes - Initial Pre Proc Eval Procedure: Operation Date: 04/15/23 08:00 Proposed Procedures p Screening Colonoscopy - Miguel Corona MD Date/Time: 04/15/23 07:31 Surgeon: Miguel Corona MD Pre Op Diagnosis: Neoplasm Screening Patient Data Age: 72 Gender: M Height: 1.73 m Weight: 56.8 kg Last Vital Signs Temp 36.9 C 04/15/23 06:46 Pulse 57 L 04/15/23 06:46 Resp 18 04/15/23 06:46 BP 120/72 04/15/23 06:46 Pulse Ox 100 04/15/23 06:46 O2 Del Method Room Air 04/15/23 06:46 Allergies Allergy/AdvReac Type Severity Reaction Status Date / Time No Known Allergies Allergy Verified 04/15/23 06:40 Home Medications Medication Instructions Recorded Confirmed Type cyanocobalamin (vitamin B-12) 1,000 mcg PO DAILY 09/07/19 04/15/23 History 1,000 mcg capsule cetirizine 10 mg tablet (Zyrtec) 10 mg PO DAILY 02/12/21 04/15/23 History apixaban 5 mg tablet (Eliquis) 5 mg PO BID #180 tabs 03/02/22 04/15/23 Rx alendronate 35 mg tablet 35 mg PO WEEKLY #12 tabs 06/08/22 04/15/23 Rx allopurinol 100 mg tablet 200 mg PO DAILY 08/24/22 04/15/23 History calcium carbonate 600 mg-vitamin 1 tablet PO BID 08/24/22 04/15/23 History D3 20 mcg (800 unit) chewable tablet (Caltrate 600 plus D) Patient hx anesthesia problems: none Family hx anesthesia problems: none Results Review: All pre-operative results and documents have been reviewed as part of the pre-operative evaluation. [facility] Past Medical History Medical History Abnormal CT scan, gastrointestinal tract Abnormal weight loss Alcohol abuse Anemia Benign essential hypertension Colon cancer screening Decreased appetite DVT (deep venous thrombosis) Rt knee in '01 and left groin '03 Elevated bilirubin Encounter for screening colonoscopy Gout Hiatal hernia Hiatal hernia Hypertension Impairment of balance Infection Leukocytosis skilled nursing current use of anticoagulant Schatzki's ring Screening for cardiovascular condition Seasonal allergic rhinitis Upper abdominal pain Surgical History Surgical History History of appendectomy 1977 Family History Family History Sibling , Cindy Diabetes mellitus Hyperlipemia Other Diabetes mellitus Nephew Father Hypertension Pneumonia Mother Cerebrovascular accident Hyperlipemia Social History Social History Social History: Patient would like to be a full code and he would also like his sister Kayleigh Hadny [phone] to be the decision maker if needed. Smoking status: Current every day smoker Tobacco type: cigars Second hand tobacco smoke exposure: Yes Additional smoking assessment comments: SMOKES 1 CIGAR/DAY Alcohol intake: current Drinks per week: 14 Alcohol use details: 3-4 beers day Substance use: never Substance use type: does not use Living arrangements: alone Additional living arrangements comments: Has a girlfriend for the last 30 years[facility] Patient does not have any pets at home. 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 Informed Consent: The patient's anesthetic plan and its attendant risks and benefits were discussed with the patient/family/POA. Questions were solicited and answers provided to the satisfaction of the
--- NOTE | 2023-04-15 07:48 | PM.HPGS ---
History of Present Illness History of Present Illness Consent: Risks, benefits, and alternatives have been discussed and questions answered. Patient agrees to proceed with procedure. Chief complaint: Neoplasm Screening Narrative: Leoncio Queen Jr. is a 72 year old male here for screening colonoscopy, last one 10 years ago Review of Systems Constitutional: Constitutional: Denies headache(s) and Denies weakness Eyes: Eyes: Denies blurry vision ENT: Reports Normal hearing present, Denies headache(s) and Denies neck pain Cardiovascular: Cardiovascular: Denies chest pain and Denies dyspnea Respiratory: Respiratory: Denies dyspnea Gastrointestinal: Gastrointestinal: Reports no additional gastrointestinal complaints Genitourinary: Genitourinary: Denies dysuria Musculoskeletal: Musculoskeletal: Denies neck pain Integumentary/Breasts: Skin/Breast: Denies dry skin Neurologic: Reports Normal hearing present, Denies headache(s) and Denies weakness Psychiatric: Psychiatric: Denies anxiety Endocrine: Endocrine: Denies change in body appearance Hematologic/Lymphatic: Hematologic/Lymphatic: Denies easy bleeding Allergic/Immunologic: Allergic/Immunologic: Denies urticaria PMFSH Past Medical History Medical History Abnormal CT scan, gastrointestinal tract Abnormal weight loss Alcohol abuse Anemia Benign essential hypertension Colon cancer screening Decreased appetite DVT (deep venous thrombosis) Rt knee in ' and left groin ' Elevated bilirubin Encounter for screening colonoscopy Gout Hiatal hernia Hiatal hernia Hypertension Impairment of balance Infection Leukocytosis jail current use of anticoagulant Schatzki's ring Screening for cardiovascular condition Seasonal allergic rhinitis Upper abdominal pain Surgical History Surgical History History of appendectomy 1977 Family History Family History Sibling , Cindy Diabetes mellitus Hyperlipemia Other Diabetes mellitus Nephew Father Hypertension Pneumonia Mother Cerebrovascular accident Hyperlipemia Social History Social History Social History: Patient would like to be a full code and he would also like his sister Kayleigh Handy [phone] to be the decision maker if needed. Smoking status: Current every day smoker Tobacco type: cigars Second hand tobacco smoke exposure: Yes Additional smoking assessment comments: SMOKES 1 CIGAR/DAY Alcohol intake: current Drinks per week: 14 Alcohol use details: 3-4 beers day Substance use: never Substance use type: does not use Living arrangements: alone Additional living arrangements comments: Has a girlfriend for the last 30 years. [facility] does not have any pets at home. 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 Gender identity (if verbalized by the patient): Male Sexual Orientation (if Verbalized by the Patient): Straight or Heterosexual Spiritual care concerns: No Agree to blood products: Yes Meds Home Medications and Allergies Home Medications Medication Instructions Recorded Confirmed Type cyanocobalamin (vitamin B-12) 1,000 mcg PO DAILY 09/07/19 04/15/23 History 1,000 mcg capsule cetirizine 10 mg tablet (Zyrtec) 10 mg PO DAILY 02/12/21 04/15/23 History apixaban 5 mg tablet (Eliquis) 5 mg PO BID #180 tabs 03/02/22 04/15/23 Rx alendronate 35 mg tablet 35 mg PO WEEKLY #12 tabs 06/08/22 04/15/23 Rx allopurinol 100 mg tablet 200 mg PO DAILY 08/24/22 04/15/23 History calcium carbonate 600 mg-vitamin 1 tablet PO BID 08/24/22 04/15/23 History D3 20 mcg (800 unit) chewable tablet (Caltrate 600 plus D) Allerg
[2023-04-15 08:10] VITALS: BP 104/64; PULSE 66; RESP 16; O2SAT 100
[2023-04-15 08:20] VITALS: BP 124/64; PULSE 50; RESP 14; O2SAT 100
[2023-04-15 08:30] VITALS: BP 105/66; PULSE 52; RESP 15; O2SAT 100
--- NOTE | 2023-04-15 08:49 | WPDANESPN ---
Anes - Prog Note Post-Op Date/Time: 04/15/23 08:49 Cardiovascular status: normal Respiratory status: normal Airway patency: baseline Mental status: baseline Post-Op hydration status: normal Vital Signs: Last Vital Signs Temp 36.9 C 04/15/23 06:46 Pulse 52 L 04/15/23 08:30 Resp 15 04/15/23 08:30 BP 105/66 04/15/23 08:30 Pulse Ox 100 04/15/23 08:30 O2 Del Method Room Air 04/15/23 08:30 Pain Score (VAS): 0/10 I/O: Intake & Output 04/14/23 04/15/23 04/15/23 23:59 07:59 15:59 Intake Total 850 Balance 850 Patient Feedback: Patient satisfied with anesthetic care.
== END 2023-04-15 08:55 | disposition home or self-care (01) ==
PROVIDERS: PCP Internal Medicine; Visit Provider Internal Medicine Gastroenterology
PROC: 0DJD8ZZ Inspection of Lower Intestinal Tract, Via Natural or Artificial Opening Endoscopic (ICD-10-PCS; CPT 45378; principal; 2023-04-15 08:00)
DX: Z12.11 Encounter for screening for malignant neoplasm of colon (principal); K64.8 Other hemorrhoids
CPT/HCPCS: 45378

== ENCOUNTER → 2023-04-20 10:50 | Outpatient (CLI) | payer MEDICARE, SELFPAY ==
--- NOTE | ~2023-04-20 | XR_ITS ---
EXAMINATION: XR abdomen/kub 1V DATE: 04/20/2023 11:18 INDICATION: Calculus of ureter. TECHNIQUE: A supine view of the abdomen on 2 radiographs was obtained. COMPARISON: CT abdomen and pelvis 08/27/2022 FINDINGS: There are no dilated loops of bowel. There is no visible urolithiasis. There are phlebolith s in left pelvis. IMPRESSION: 1. No visible urolithiasis. Reviewed, dictated and finalized at location A. IMPRESSION: 1. No visible urolithiasis.
== END ==
PROVIDERS: PCP Urology; Visit Provider Urology
DX: N20.1 Calculus of ureter (principal)
CPT/HCPCS: 74018

== ENCOUNTER 2023-09-09 10:00 | Outpatient (RCR) | payer MEDICARE, SELFPAY ==
--- NOTE | 2023-07-23 14:07 | OPREHPOC ---
Outpatient Therapy Plan of Care This is a Multidisciplinary Plan of Care that may contain components documented by all disciplines (PT, OT, and ST.) PT Problem 1 PT Problem #1 Knowledge Deficit PT Goal 1 Goal * indep with HEP PT Problem 2 PT Problem #2 Pain PT Goal 1 Goal * monitor pain in back as increase activity level PT Problem 3 PT Problem #3 Impaired Flexibility PT Goal 1 Goal increase flexibility of hamstrings, to improve standing position supine SLR to 60' 1* R 2* L PT Problem 4 PT Problem #4 Impaired Strength PT Goal 1 Goal 1* sit/stand from 18 seat, without use of UE x 5 reps side lying hip abduction to 10' x 20 reps 2* R 3* L single leg standing without UE support x 10 seconds 4* R 5* L PT Problem 5 PT Problem #5 Impaired Functional Mobil PT Goal 1 Goal 1* 2 minute walking test distance of 375' 2* with walking pt have heel strike of R and L 3* Tinetti balance/gait score of 24/28
--- NOTE | 2023-07-23 14:07 | PTOPEVAL1 ---
Assessment and note entered by Yu Zapata, PT Evaluation Information Assessment Status Evaluation Diagnosis gait instability, chronic back pain Onset January 2023 Subjective Information gradual increase in weakness and problems walking; one fall in past 6 months due to crack in sidewalk; use cane when going out in community and in home do not use assistive device; have HEP from previous PT but not do regularly; have had PT in the past for balance/gait; difficulties with walking and carrying- like groceries into home from the car; have a fear of falling; ACTIVITY: able to do home tasks, but has help with yard work; Reported Pain Level Pain Score Self Report Additional Pain Score Comments chronic back soreness 3-12/21; Assessment PT Clinical Summary Leoncio has the diagnosis of gait instability and chronic LBP. He reports back pain is stable and main concern with walking and unsteady balance. He uses a cane in the community and no device in home. He voiced a fear of falling--had one fall, tripping over a crack in the side walk. With the evaluation: he has poor walking pattern with flat foot and wide base of support; TUG is WNL at 15 seconds; 2 minute walking test distance of 300' with cane; Tinetti balance/gait score of 18/28; weakness of hips and trunk; tightness of hamstrings; Skilled PT services are indicated for modalities PRN for back pain; therapeutic exercises to increase LE strength, gait and balance skills, with education for gait pattern and HEP. Plan of Care Interventions Hot Pack/Cold Pack,Neuro Re-education,Patient Education,Therapeutic Activities, Therapeutic Exercise PT Services Indicated Yes Treatment Frequency and 2x/wk x 4 weeks Duration These treatments will address the objective and functional deficits as defined above. The patient will be advanced safely and appropriately in order for the patient to progress towards his/her prior level of function. Additional exercises will be introduced and as well as a comprehensive home exercise program upon discharge, if neede
--- NOTE | 2023-08-12 09:49 | PCPTNOTE ---
Patient did not show up for scheduled appointment this date. Called and left voicemail for Pt about missed appointment. Reminded Pt of upcoming appointment on 08/17/2023 @ 10:30. This is Pt's first N/S.
--- NOTE | 2023-08-19 10:59 | OPREHPOC ---
Outpatient Therapy Plan of Care This is a Multidisciplinary Plan of Care that may contain components documented by all disciplines (PT, OT, and ST.) PT Problem 1 PT Problem #1 Knowledge Deficit PT Goal 1 Goal * indep with HEP Progress Met Comment 08-19-23 progress met goal; continue to progress HEP and education PT Problem 2 PT Problem #2 Pain PT Goal 1 Goal * monitor pain in back as increase activity level Progress Met Comment 08-19-23 progress met goal continue towards goal PT Problem 3 PT Problem #3 Impaired Flexibility PT Goal 1 Goal increase flexibility of hamstrings, to improve standing position supine SLR to 60' 1* R 2* L Progress Not Met Comment 08-19-23 progress goal not met; continue towards PT Problem 4 PT Problem #4 Impaired Strength PT Goal 1 Goal 1* sit/stand from 18 seat, without use of UE x 5 reps side lying hip abduction to 10' x 20 reps 2* R 3* L single leg standing without UE support x 10 seconds 4* R 5* L Progress Partially Met Comment 08-19-23 progress partially met goals: 2 & 3 met reps but not to 10' lift; #4 & 5 can do with 1 UE support continue towards goals PT Problem 5 PT Problem #5 Impaired Functional Mobil PT Goal 1 Goal 1* 2 minute walking test distance of 375' 2* with walking pt have heel strike of R and L 3* Tinetti balance/gait score of 24/28 Progress Not Met Comment 08-19-23 progress
--- NOTE | 2023-08-19 11:00 | PTOPPROG ---
Assessment and note entered by Yu Zapata, PT Evaluation Information Assessment Status Progress Diagnosis gait instability, chronic back pain Onset January 2023 Subjective Information feels like legs are a little stronger; have been doing the exercises; no falls since coming for therapy; making some improvements and want to continue with therapy; have been going out with the cane--grocery store, out to lunch with buddies shopping; still feel like balance needs more work, when first stand up am unsteady and afraid of falling. Assessment PT Clinical Summary Leoncio has received 7 PT sessions. Compared to the initial evaluation: increase LE strength with mat exercises; sit/stand transfer continues to do with use of 1 UE; unsteady with initial standing; 5 reps sit/stand time improved from 30 to 23 seconds; 2 minute walking test distance improved from 300 to 310';Tinetti balance score is same at 18/28= high risk for falls; education for HEP and correct posture with walking The goals were partially met. Continue PT to further increase gait and balance skills, for safety with mobility. Plan of Care Interventions Gait Training,Neuro Re-education,Patient Education,Therapeutic Activities,Therapeutic Exercise PT Services Indicated Yes Treatment Frequency and 2x/wk for 3 weeks Duration These treatments will address the objective and functional deficits as defined above. The patient will be advanced safely and appropriately in order for the patient to progress towards his/her prior level of function. Additional exercises will be introduced and as well as a comprehensive home exercise program upon discharge, if needed, ?to ensure carryover of functional gains achieved in the clinic. This treatment plan has been reviewed and agreement upon by the patient.
--- NOTE | 2023-08-30 12:02 | PCPTNOTE ---
Pt cancelled today stating he can't make it today.
--- NOTE | 2023-09-07 11:31 | PCPTNOTE ---
Pt did not show for appt. today. Pt was left message regarding his next appt. for his re-eval.
--- NOTE | 2023-09-09 10:44 | PTOPDC ---
Assessment and note entered by Yu Zapata, PT Discharge Information Assessment Status Discharge Diagnosis gait instability, chronic back pain Onset January 2023 Subjective Information am better, able to get up from chair easier, walking little better, legs still not working like they should; in the house do not use the cane, but outside use it; is doing the exercises; Reported Pain Level Pain Score 3: Self Report Additional Pain Score Comments soreness in back Assessment PT Clinical Summary Leoncio has received a total of 10 PT sessions. Compared to the last reevaluation: 2 minute walking test distance decreased by 25'; Tinetti balance score improved by 1 point to 19/28, still at high risk for falls; is using the cane for walking in community, and has flat foot pattern; strength of R and LE is about the same; hamstring flexibility on R has increased 5'/ L is same; education completed for HEP; he is safe with walking on level surface and has not had any falls The goals were partially met. Discharge PT services. He is to continue with HEP Plan of Care PT Services Indicated No
== END 2023-09-09 11:32 | disposition home or self-care (01) ==
LOC: ANHPT 10:00
PROVIDERS: PCP Urology; Visit Provider Internal Medicine
DX: M54.50 Low back pain, unspecified (principal); R26.81 Unsteadiness on feet; R26.89 Other abnormalities of gait and mobility
CPT/HCPCS: 97110; 97112; 97116; 97161; 97530; 99199

== ENCOUNTER 2023-12-03 12:58 | Inpatient (IN) | payer MEDICARE, SELFPAY ==
[2023-12-03] VITALS (22 sets, daily range): BP systolic 102–152; BP diastolic 57–100; PULSE 66–91; RESP 11–23; TEMP 36.6–37.3; O2SAT 94–100; BMI 20.7
--- NOTE | ~2023-12-03 | XR_ITS ---
AP and lateral views of the right femur Clinical History: Pain Findings: There is an intertrochanteric fracture of the proximal right ureter, with comminution and i ncreased varus angulation of the major distal fracture fragment.. Visualized joint spaces are grossly preserved. Soft tissues are unremarkable. Impression: Intertrochanteric fracture of the proximal right femur, as detailed above. Reviewed, dictated and finalized at location M. Impression: Intertrochanteric fracture of the proximal right femur, as detailed above.
--- NOTE | ~2023-12-03 | XR_ITS ---
AP view of the pelvis and AP and lateral views of the right hip Clinical history: Pain Findings: There is a comminuted, intertrochanteric fracture of the proximal right femur with increase d varus annulation of the major distal fracture fragment. Joint spaces are preserved. Soft tissues ar e unremarkable. Impression: Comminuted, acute intertrochanteric fracture of the proximal right femur, as detailed above. Reviewed, dictated and finalized at location M. Impression: Comminuted, acute intertrochanteric fracture of the proximal right femur, as de tailed above.
--- NOTE | ~2023-12-03 | XR_ITS ---
EXAMINATION: XR hip LT min 2V DATE: 12/12/2023 18:44 INDICATION: Left hip pain. TECHNIQUE: 2 views of left hip were obtained. COMPARISON: Pelvis radiograph 12/03/2023 FINDINGS: Bone alignment is normal. No fracture. There is mild left hip osteoarthritis. IMPRESSION: 1. Mild left hip osteoarthritis. Reviewed, dictated and finalized at location E.
--- NOTE | ~2023-12-03 | XR_ITS ---
Portable chest x-ray Comparison: 08/13/2021 Clinical History: Status post fall Findings: Lungs are clear, without focal consolidation or pleural effusion. Cardiomediastinal silho uette is stable. Calcified right hilar lymph nodes are unchanged. Bones and soft tissues are unremark able. Impression: Clear lungs. Stable calcified right hilar lymph nodes. Reviewed, dictated and finalized at location . Impression: Clear lungs. Stable calcified right hilar lymph nodes.
--- NOTE | ~2023-12-03 | XR_ITS ---
EXAMINATION: XR surgery orthopedic DATE: 12/06/2023 16:19 INDICATION: Intertrochanteric fracture of proximal right femur. TECHNIQUE: 4 intraoperative fluoroscopic views of right hip were obtained. I wasn't present. Fluorosc opy exposure time was 4 minutes and 10 seconds. COMPARISON: Right hip radiographs 12/03/2023 FINDINGS: There is a comminuted intertrochanteric fracture of proximal right femur. The main distal f racture fragment demonstrates near-anatomic alignment status post open reduction internal fixation wi th antegrade intramedullary savanah and 2 femoral head/neck screws. There is mild right hip osteoarthriti s. IMPRESSION: 1. Comminuted intertrochanteric fracture of proximal right femur status post open reduction internal fixation. 2. Mild right hip osteoarthritis. Reviewed, dictated and finalized at location E. IMPRESSION: 1. Comminuted intertrochanteric fracture of proximal right femur status post op en reduction internal fixation. 2. Mild right hip osteoarthritis.
[2023-12-03] MEDS: HYDROmorphone HCL INJ (*CRX) 1 MG/ML SYR IV PUSH (13:51)
--- NOTE | 2023-12-03 13:53 | ED.FALL ---
HPI - Fall General Chief Complaint: Fall Stated Complaint: fall Time Seen by Provider: 12/03/23 13:45 History of Present Illness HPI Narrative: 73-year-old male presenting with right hip pain. States that he was taking the trash out and he lost his balance and fell to his right hip with immediate severe pain. Was unable to stand so he called EMS. Denies striking his head or loss of consciousness. No further injuries or complaints. Related Data Home Medications Medication Instructions Recorded Confirmed cetirizine 10 mg tablet (Zyrtec) 10 mg PO DAILY 02/12/21 12/03/23 allopurinol 100 mg tablet 200 mg PO DAILY 08/24/22 12/03/23 calcium carbonate 600 mg-vitamin 1 tablet PO BID 08/24/22 12/03/23 D3 20 mcg (800 unit) chewable tablet (Caltrate 600 plus D) apixaban 5 mg tablet (Eliquis) 5 mg PO BID 12/03/23 12/03/23 multivitamin with minerals-folic 1 tablet PO DAILY 12/03/23 12/03/23 acid 0.4 mg tablet Allergies Allergy/AdvReac Type Severity Reaction Status Date / Time No Known Allergies Allergy Verified 12/06/23 14:27 Review of Systems Review of Systems: All systems reviewed & are unremarkable except as noted in HPI and below PMFSH Past Medical History Medical History Anemia Daily consumption of alcohol Deep venous thrombosis Gout Hiatal hernia Hypertension Kidney stones 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 Code status: Full code. Smoking status: Current every day smoker Tobacco type: cigars Second hand tobacco smoke exposure: Yes Additional smoking assessment comments: 1 cigar daily Alcohol intake: current Drinks per week: 28 Alcohol use details: 3-4 beers day Substance use: never Substance use type: does not use Do You Feel Safe in your Home?: Yes Lack of Transportation: No Lack of Food: Never True Current Housing: I Have Housing Concerned About Future Housing: No Difficulty Paying Gas/Electric Bills: No Difficulty Paying for Meds: No Currently Unemployed: No Education: Decline to Answer Difficulty w/ Childcare or Family Care: No Living arrangements: alone Additional living arrangements comments: Lives alone in [place]. 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 Spiritual care concerns: No Agree to blood products: Yes Exam Narrative: GENERAL: uncomfortable appearing, pleasant cooperative HEAD: Normocephalic, atraumatic. EYES: PERRLA and EOMI. ENT: grossly unremarkable NECK: Supple. CHEST: No respiratory distress. HEART: Regular rate and rhythm ABDOMEN: Soft, nontender, nondistended EXTREMITIES: R leg is shortened, externally rotated, DP pulses 2+ SKIN: Warm, dry, no rash. NEURO: Alert and oriented x3. PSYCH: Normal mood and affect. Course Vital Signs Vital signs: Vital Signs Temperature 98.6 F 12/03/23 13:00 Pulse Rate 88 12/03/23 13:00 Respiratory Rate 18 12/03/23 13:00 Blood Pressure 152/100 H 12/03/23 13:00 Pulse Oximetry 97 12/03/23 13:00 Oxygen Delivery Room Air 12/03/23 13:00 Temperature 97.7 F 12/10/23 08:02 Pulse Rate 63 12/10/23 09:09 Respiratory Rate 16 12/10/23 08:02 Blood Pressure 126/67
[2023-12-03 15:06] LABS: Basophils Percent Auto 0.6 % (0.2-1.2); Eosinophils Absolute Auto 0.1 K/mm3 (0-0.3); Eosinophils Percent Auto 0.7 % (0-4.4); Hematocrit 35.2 % (42.0-52.0); Hemoglobin 11.9 g/dL (14.0-18.0); Immature Granulocyte Absolute 0.01 K/mm3 (0.00-0.031); Immature Granulocyte Percent A 0.1 % (0-0.5); Lymphocytes Absolute Auto 2.01 K/mm3 (0.9-3.2); Mean Corpuscular HGB Conc 33.8 g/dl (32-36); Mean Corpuscular Hemoglobin 32.4 pg (26-34); Mean Corpuscular Volume 95.9 fl (80-100); Mean Platelet Volume 8.9 fl (7.4-10.4); Monocytes Absolute Auto 0.4 K/mm3 (0.1-0.6); Monocytes Percent Auto 6.3 % (2.6-8.5); Neutrophils Absolute Auto 4.2 K/mm3 (1.3-6.7); Neutrophils Percent Auto 62.3 % (45.5-73.1); Platelet Count Result 215 k/mm3 (150-375); Red Blood Count 3.67 M/mm3 (4.6-6.20); Red Cell Distribution Width 13.1 % (11.5-14.5); White Blood Count 6.7 K/mm3 (4.5-10.0)
[2023-12-03 15:15] LABS: INR 1.3; Prothrombin Time 16.7 Seconds (11.1-14.7)
[2023-12-03 15:16] LABS: Partial Thromboplastin Time 28.2 Seconds (22.3-36.8)
[2023-12-03 15:17] LABS: Anion Gap 5 mmol/L (8-16); Blood Urea Nitrogen 19 mg/dL (9-20); Calcium 9.2 mg/dL (8.4-10.2); Carbon Dioxide 27 mmol/L (22-30); Chloride 107 mmol/L (98-107); Estimated CRCL calculation 98 ml/min; Estimated Glomerular Filt Rate > 60; Glucose 101 mg/dL (65-110); Potassium 4.2 mmol/L (3.4-5.0); Sodium 139 mmol/L (137-145)
--- NOTE | 2023-12-03 16:07 | PM.IMHP ---
H&P: HPI History of Present Illness Date/Time: 12/03/23 16:15 Chief Complaint: Right hip pain after fall. Narrative: This is a pleasant 73-year-old male with hypertension, gout, recurrent DVTs on Eliquis, and daily alcohol consumption who presented to the emergency department via EMS from home for evaluation of right hip pain after a fall. The patient provides the following history. While taking out the trash he lost his balance and fell hard onto his right hip with immediate, severe pain. He was unable to get himself up and called EMS. He denies head trauma and loss of consciousness in the fall. He has no pain other than that in his right hip and does not suspect he has had any other injuries. Imaging done in the ED showed an intertrochanteric fracture of the proximal right femur and he is being admitted in this setting. At the time my evaluation he is resting comfortably now that his pain is better controlled. Last dose of Eliquis was this morning. Review of Systems Review of Systems: Twelve systems were reviewed. No recent cold or flu symptoms. No exertional chest pain or shortness of breath. No history of cardiac or pulmonary disease. No known history of anesthesia reactions. He has never had signs or symptoms of alcohol withdrawal. He has a history of recurrent venous thromboembolisms and is on long-term Eliquis. Last dose was this morning. Except as documented, other systems were reviewed and are negative. 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 Code status: Full code. Smoking status: Current every day smoker Tobacco type: cigars Second hand tobacco smoke exposure: Yes Additional smoking assessment comments: 1 cigar daily Alcohol intake: current Drinks per week: 28 Alcohol use details: 3-4 beers day Substance use: never Substance use type: does not use Do You Feel Safe in your Home?: Yes Lack of Transportation: No Lack of Food: Never True Current Housing: I Have Housing Concerned About Future Housing: No Difficulty Paying Gas/Electric Bills: No Difficulty Paying for Meds: No Currently Unemployed: No Education: Decline to Answer Difficulty w/ Childcare or Family Care: No Living arrangements: alone Additional living arrangements comments: Lives alone in [place]. 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 Spiritual care concerns: No Agree to blood products: Yes Meds Home Medications and Allergies Home Medications Medication Instructions Recorded Confirmed Type cetirizine 10 mg tablet (Zyrtec) 10 mg PO DAILY 02/12/21 12/03/23 History alendronate 35 mg tablet 35 mg PO WEEKLY #12 tabs 06/08/22 12/03/23 Rx allopurinol 100 mg tablet 200 mg PO DAILY 08/24/22 12/03/23 History calcium carbonate 600 mg-vitamin 1 tablet PO BID 08/24/22 12/03/23 History D3 20 mcg (800 unit) chewable tablet (Caltrate 600 plus D) apixaban 5 mg tablet (Eliquis) 5 mg PO BID 12/03/23 12/03/23 History multivitamin with minerals-folic 1 tablet PO DAILY 12/03/2312/02
[2023-12-03] MEDS: HYDROmorphone HCL INJ (*CRX) 1 MG/ML SYR 0.5 MG IV PUSH (16:11)
--- NOTE | 2023-12-03 17:24 | ADMGEN ---
This patient, Leoncio Queen Jr., was admitted to 3 [facility] Surg Room 313-01. Patient/family oriented to hospital policies and general routines including ID bracelet, bed and alarms, visiting hours, pain management, procedures, bathroom and other care routines, personal items, smoking policy, room service/diet, and visiting hours. Information on how to activate the Rapid Response Team has been discussed. Patient/Family are encouraged to report perceived risks to care and to ask questions if they do not understand what they are told or what they should do.
[2023-12-03] MEDS: MORPHINE SULFATE (*CRX) 2 MG/ML INJ IV PUSH (20:04)
[2023-12-03] MEDS: LORazepam (*CRX) 1 MG TABLET PO (20:12)
[2023-12-03] MEDS: HYDROcodone/acetaminophen (*CRX) 5-325 MG TABLET 1 TAB PO (20:12)
--- NOTE | 2023-12-03 22:47 | PC.NURSE ---
Pt called at approximately 2215 requesting pain meds. Pt was informed at that time he had received all available pain meds approximately an hour prior and there was nothing available to give him. About 15 minutes later, pt called again demanding pain meds. At 22:42, I entered pt's room by knocking on the door, opening the door which made a loud grinding sound against the floor and walked up to pt's bed while calling his name. Pt was sound asleep appearing relaxed and did not blink, stir, open his eyes, or react in any way to his name or the aforementioned noises.
[2023-12-04] VITALS (12 sets, daily range): BP systolic 96–115; BP diastolic 52–72; PULSE 79–182; RESP 12–16; TEMP 37.4–37.6; O2SAT 95–99
[2023-12-04] MEDS: LORazepam (*CRX) 1 MG TABLET 2 MG PO (02:08)
[2023-12-04] MEDS: HYDROcodone/acetaminophen (*CRX) 5-325 MG TABLET 1 TAB PO ×3 (02:09→13:01)
[2023-12-04 06:47] LABS: Basophils Percent Auto 0.2 % (0.2-1.2); Eosinophils Percent Auto 0.1 % (0-4.4); Hematocrit 29.8 % (42.0-52.0); Immature Granulocyte Absolute 0.03 K/mm3 (0.00-0.031); Immature Granulocyte Percent A 0.3 % (0-0.5); Lymphocytes Absolute Auto 1.74 K/mm3 (0.9-3.2); Lymphocytes Percent Auto 19.5 % (18.3-44.2); Mean Corpuscular HGB Conc 33.6 g/dl (32-36); Mean Corpuscular Hemoglobin 32.6 pg (26-34); Mean Corpuscular Volume 97.1 fl (80-100); Mean Platelet Volume 9.1 fl (7.4-10.4); Monocytes Absolute Auto 0.8 K/mm3 (0.1-0.6); Monocytes Percent Auto 9.3 % (2.6-8.5); Neutrophils Absolute Auto 6.3 K/mm3 (1.3-6.7); Neutrophils Percent Auto 70.6 % (45.5-73.1); Platelet Count Result 201 k/mm3 (150-375); Red Blood Count 3.07 M/mm3 (4.6-6.20); Red Cell Distribution Width 13.2 % (11.5-14.5); White Blood Count 8.9 K/mm3 (4.5-10.0)
[2023-12-04 06:59] LABS: INR 1.1; Prothrombin Time 15.1 Seconds (11.1-14.7)
[2023-12-04 07:00] LABS: Partial Thromboplastin Time 29.1 Seconds (22.3-36.8)
[2023-12-04 07:03] LABS: Alanine Aminotransferase 16 U/L (6-50); Albumin Level 3.5 g/dL (3.5-5.1); Alkaline Phosphatase 51 U/L (38-126); Anion Gap 3 mmol/L (8-16); Aspartate Amino Transferase 31 U/L (17-59); Bilirubin,Total 1.9 mg/dL (0.2-1.3); Blood Urea Nitrogen 20 mg/dL (9-20); Calcium 8.8 mg/dL (8.4-10.2); Carbon Dioxide 26 mmol/L (22-30); Chloride 107 mmol/L (98-107); Estimated CRCL calculation 72 ml/min; Estimated Glomerular Filt Rate > 60; Glucose 129 mg/dL (65-110); Magnesium 1.8 mg/dL (1.6-2.3); Potassium 3.7 mmol/L (3.4-5.0); Sodium 136 mmol/L (137-145)
[2023-12-04] MEDS: THERAPEUTIC MULTIVITAMINS/MINERALS TAB (*BKC) 1 TABLET PO (08:58)
[2023-12-04] MEDS: LORATADINE 10 MG TABLET PO (08:58)
[2023-12-04] MEDS: FOLIC ACID 1 MG TABLET PO (08:58)
[2023-12-04] MEDS: THIAMINE HCL 100 MG TABLET PO (08:58)
[2023-12-04] MEDS: allopurinoL 100 MG TABLET 200 MG PO (08:59)
--- NOTE | 2023-12-04 12:31 | PM.CNOR ---
Assessment and Plan Assessment and plan (1) Intertrochanteric fracture of right hip: Code(s): S72.141A - Displaced intertrochanteric fracture of right femur, initial encounter for closed fracture Status: Acute Plan GHISLAINE HAS A DISPLACED AND COMMINUTED RIGHT INTERTROCHANTERIC HIP FRACTURE. HE WILL REQUIRE INSERTION OF SAM WITH HIP SCREW RIGHT FEMUR. WE WILL STOP THE ELIQUIS FOR NOW IF POSSIBLE. HE HAS A HISTORY OF MULTIPLE DVTs. WE WILL RESUME FOLLOWING SURGERY. WE WILL SCHEDULE SURGERY FOR SOME TIME TOMORROW IF HE IS CLEARED BY INTERNAL MEDICINE. HISTORY, EXAM AND RADIOGRAPHS REVIEWED WITH THE PATIENT. REFERRING PHYSICIAN RECORDS AND IMAGES REVIEWED. CONDITION, NATURE, ETIOLOGY AND COURSE OF NATURAL HISTORY REVIEWED. CONSERVATIVE AND OPERATIVE TREATMENT OPTIONS REVIEWED WELL THE RISKS AND BENEFITS OF EACH. DISCUSSED NONOPERATIVE AND OPERATIVE TREATMENT OPTIONS WITH THE PATIENT. THE PATIENT'S QUESTIONS WERE ANSWERED. THE PATIENT DESIRES OPERATIVE TREATMENT. DISCUSSED ____INSERTION OF INTRAMEDULLARY NAIL RIGHT HIP . RISKS OF SURGERY INCLUDING BUT NOT LIMITED TO NEUROVASCULAR DAMAGE, WOUND COMPLICATIONS, BLOOD CLOT, PULMONARY EMBOLUS, STROKE, [place], ANESTHETIC RISKS UP TO AND INCLUDING WERE REVIEWED. CONTINUED PAIN AND POSSIBLE DYSFUNCTION WERE EXPLAINED. NO GUARANTEES WERE OFFERED. THE PATIENT UNDERSTANDS AND WISHES TO PROCEED. History of Present Illness HPI Consult date: 12/04/23 Chief complaint: R Hip Fracture Narrative: GHISLAINE IS HERE FOR EVALUATION OF HIS RIGHT HIP. HE FELL YESTERDAY WHILE TAKING OUT THE TRASH AND WAS UNABLE TO GET UP DUE TO SEVERE HIP PAIN. HE DENIES ANY NECK OR BACK PAIN OR ANY OTHER EXTREMITY PAIN. HE WAS SENT TO [facility] FOR EVALUATION AND FOUND TO HAVE A COMMINUTED INTERTROCHANTERIC HIP FRACTURE. HE IS ON ELIQUIS. HE HAS NO OTHER C/O ASIDE FROM RIGHT HIP PAIN. 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 Code status: Full code. Smoking status: Current every day smoker Tobacco type: cigars Second hand tobacco smoke exposure: Yes Additional smoking assessment comments: 1 cigar daily Alcohol intake: current Drinks per week: 28 Alcohol use details: 3-4 beers day Substance use: never Substance use type: does not use Do You Feel Safe in your Home?: Yes Lack of Transportation: No Lack of Food: Never True Current Housing: I Have Housing Concerned About Future Housing: No Difficulty Paying Gas/Electric Bills: No Difficulty Paying for Meds: No Currently Unemployed: No Education: Decline to Answer Difficulty w/ Childcare or Family Care: No Living arrangements: alone Additional living arrangements comments: Lives alone in [place]. 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 Spiritual care concerns: No Agree to blood products: Yes Meds Home Medications and Allergies Home Medications Medication Instru
--- NOTE | 2023-12-04 13:07 | PCPTNOTE ---
Patient has not had hip surgery yet, but plan is to have it tomorrow, will check on patient tomorrow.
--- NOTE | 2023-12-04 13:50 | PM.IMPN ---
Progress Note: A&P Assessment and Plan (1) Intertrochanteric fracture of right hip: Code(s): S72.141A - Displaced intertrochanteric fracture of right femur, initial encounter for closed fracture Status: Acute (2) Normocytic anemia: Code(s): D64.9 - Anemia, unspecified Status: Acute (3) Daily consumption of alcohol: Code(s): Z78.9 - Other specified health status Status: Acute (4) Gout: Qualifiers: Gout site: unspecified site Gout etiology: unspecified cause Chronicity: chronic Presence of tophus: without tophus Qualified Code(s): M1A.9XX0 - Chronic gout, unspecified, without tophus (tophi) Code(s): M10.9 - Gout, unspecified Status: Acute Plan This is a 73-year-old male with hypertension gout recurrent DVT on Eliquis and daily alcohol consumption presented to the ED after a fall sustaining right hip pain. He states while taking out the trash he lost his balance and fell hard on his right hip with immediate severe pain. He was unable to get himself up and called EMS. He denies any head trauma or loss of consciousness in the fall. No other injuries were reported. The ED showed intertrochanteric fracture of right femur. Orthopedic has been consulted. Putnam in place. Labs reviewed. Vitals stable. Chronic alcohol use Eliquis on hold for potential surgery. Chest x-ray with lungs. Will get EKG. No cardiac history. Acceptable risk for planned surgery Subjective Date/time seen: 12/04/23 13:50 Interval history: Pain controlled. No chest pain or shortness of. Chart reviewed x-rays reviewed. Putnam catheter in place Review of Systems Review of Systems: All systems reviewed & are unremarkable except as noted in HPI and below Exam Narrative: General: Nontoxic-appearing male sitting up in bed in no distress. HEENT: Normocephalic, atraumatic. PERRL, EOMI. Sclera anicteric. Oral mucosa moist. Neck: Supple. Respiratory: Lungs are clear to auscultation bilaterally. Cardiovascular: Regular rate and rhythm with S1-S2. Gastrointestinal: Abdomen is soft, flat, nontender, and nondistended with positive bowel sounds. Skin: Warm and dry. Extremities: No cyanosis, clubbing, or edema. Radial and pedal pulses intact. Musculoskeletal: Right lower extremity is shortened and externally rotated. He is tender to palpation over the anterolateral hip. No gross deformities noted. He is neurovascularly intact distal to the fracture. Neurological: Alert. Cranial nerves 2-12 are grossly intact. No gross focal deficits to casual conversation. Psychiatric: Pleasant and cooperative with normal mood and affect. Judgment and insight intact. Objective Data Vital Signs Vital Signs: Vital Signs - 24 hr 12/03/23 14:55 12/03/23 14:56 12/03/23 15:00 Temperature Pulse Rate 79 72 72 Respiratory Rate 13 19 13 Blood Pressure 122/84 Pulse Oximetry 100 100 95 Oxygen Delivery 12/03/23 15:01 12/03/23 15:02 12/03/23 15:15 Temperature Pulse Rate 69 72 74 Respiratory Rate 13 11 L 23 H Blood Pressure 110/73 Pulse Oximetry 95 95 97 Oxygen Delivery 12/03/23 15:16 12/03/23 15:30 12/03/23 15:31 Temperature Pulse Rate 87 71 70 Respiratory Rate 23 H 19 19 Blood Pressure 105/77 102/74 Pulse Oximetry 95 96 97 Oxygen Delivery 12/03/23 15:45 12/03/23 15:46 12/03/23 16:00 Temperature Pulse Rate 67 70 Respiratory Rate 16 21 H 13 Blood Pressure 102/71 Pulse Oximetry 94 97 100 Oxygen Delivery 12/03/23 16:01 12/03/23 16:15 12/03/23 16:16 Temperature Pulse Rate 72 90 66 Respiratory Rate 16 17 14 Blood Pressure 114/74 112/74 Pulse Oximetry 99 95 97 Oxygen Delivery 12/03/23 16:30 12/03/23 16:31 12/03/23 16:45 Temperature Pulse Rate 91 75 83 Respiratory Rate 22 H 15 22 H Blood Pressure 108/72 Pulse Oximetry 94 95 98 Oxygen Delivery 12/03/23 16:46 12/03/23 18:55 12/03/23 20:00 Temperature 97.8 F Pulse Rat
--- NOTE | 2023-12-04 13:53 | ECG_ITS ---
Measurements Intervals [place] Rate: 161 P: MN: 0 QRS: 7 QRSD: 83 T: 57 QT: 282 QTc: 462 Interpretive Statements SUPRAVENTRICULAR TACHYCARDIA, CONSIDER ATRIAL FLUTTER/TACHYCARDIA MINIMAL Q WAVES- LATERAL LEADS BASELINE ARTIFACT- I, II, AVR, AVL, AVF ABNORMAL ECG COMPARED TO ECG 07/22/2022 10:49:46 SUPRAVENTRICULAR TACHYCARDIA NOW PRESENT Electronically Signed On 12-04-2023 19:11:34 CDT by Dylan Carver D.O.
[2023-12-04] MEDS: SODIUM CHLORIDE 0.9% IV 500 ML 999 ML (14:35)
[2023-12-04] MEDS: chlordiazePOXIDE (*CRX) 10 MG CAPSULE PO ×2 (17:15→22:07)
[2023-12-04] MEDS: SODIUM CHLORIDE 0.9% IV 1,000 ML 75 ML IV CONT (18:30)
[2023-12-04] MEDS: METOPROLOL TARTRATE 6.25 MG TABLET PO (18:43)
[2023-12-04] MEDS: METOPROLOL TARTRATE INJ 5 MG/5 ML VIAL 2.5 MG IV PUSH (19:55)
[2023-12-04] MEDS: METOPROLOL TARTRATE 12.5 MG TABLET PO (19:56)
--- NOTE | 2023-12-04 20:36 | PC.NURSE ---
This RN provided monitored CIWA scores on this patient. Pt had scores that noted use of PRN librium, but this RN held librium, due to pt needing hydrocodone. Pt A/Ox4, but frequently asleep and resting fairly well. made aware. Ortho to floor and discussed surgery with pt. Hospitalist ordered preop EKG routine. EKG showed pt in aflutter RVR with rate in 170s. Pt immediately placed on tele. MD and ortho made aware. Ortho states surgery still possible. MD ordered 1 time IVP metoprolol but RN held d/t pt BP 90s/50s at this time. MD ordered 500ml NS bolus. Pt pressure improved to 110s/60s. Pt HR improved to 100s-120s and stable approx 2 hrs. MD states pt in NSR per tele monitor. MD able to see bouts of tach, but states improved enough for now. Upon auscultation, pt HR irregular and bouncing. MD called for additional medications. MD order give 2100 6.25mg PO metoprolol dose now. Med sent from pharmacy given approx 1845. This RN called back to provider to inform pt now tach to 190. MD order Q6H IVP PRN metoprolol and increased PO doses. Report given to night RN. Night RN called to night provider who states transfer to IMU. This RN called to ortho to inform him of pt condition. Ortho requests cancel surgery as pt will be in IMU. Night RN and night charge made aware.
--- NOTE | 2023-12-04 21:07 | PC.NURSE ---
2030 Spoke with Yany ROTH about pending transfer. Made Yany aware this nurse was unable to reach Dr Quintanilla and there is no transfer order in computer and that this is concerned per alcohol withdrawal contributing to elevated heart rate and reported increased confusion. Made PA aware he is on 10 of Librium q8 and PO Ativan. Yany states she will look into transfer and call me back.
--- NOTE | 2023-12-04 21:39 | PC.NURSE ---
[id number] Anahi Dove RN, charge nurse, called per lack of transfer order. Kamaljit she will follow up with .
--- NOTE | 2023-12-04 21:46 | PC.NURSE ---
This patient, Leoncio Murillo Bret Rizzo, was received from [facility]- on 12/04/23 at 2129 to U [id number]. Patient oriented to unit policies and routines
[2023-12-05] VITALS (20 sets, daily range): BP systolic 90–123; BP diastolic 48–96; PULSE 69–158; RESP 16–28; TEMP 36.3–37.2; O2SAT 96–100
[2023-12-05] MEDS: HYDROcodone/acetaminophen (*CRX) 5-325 MG TABLET 1 TAB PO ×4 (01:52→23:09)
[2023-12-05] MEDS: DIGOXIN INJ 250 MCG/ML 2 ML AMP (*BKC) IV PUSH (04:50)
[2023-12-05 05:05] LABS: Basophils Percent Auto 0.2 % (0.2-1.2); Hematocrit 29.8 % (42.0-52.0); Hemoglobin 9.9 g/dL (14.0-18.0); Immature Granulocyte Absolute 0.05 K/mm3 (0.00-0.031); Immature Granulocyte Percent A 0.4 % (0-0.5); Lymphocytes Absolute Auto 1.09 K/mm3 (0.9-3.2); Lymphocytes Percent Auto 8.8 % (18.3-44.2); Mean Corpuscular HGB Conc 33.2 g/dl (32-36); Mean Corpuscular Volume 99.3 fl (80-100); Mean Platelet Volume 9.4 fl (7.4-10.4); Monocytes Absolute Auto 1.5 K/mm3 (0.1-0.6); Monocytes Percent Auto 11.7 % (2.6-8.5); Neutrophils Absolute Auto 9.8 K/mm3 (1.3-6.7); Neutrophils Percent Auto 78.9 % (45.5-73.1); Platelet Count Result 189 k/mm3 (150-375); Red Cell Distribution Width 12.9 % (11.5-14.5); White Blood Count 12.4 K/mm3 (4.5-10.0)
[2023-12-05 05:22] LABS: Alanine Aminotransferase 20 U/L (6-50); Albumin Level 3.7 g/dL (3.5-5.1); Alkaline Phosphatase 50 U/L (38-126); Anion Gap 4 mmol/L (8-16); Aspartate Amino Transferase 46 U/L (17-59); Bilirubin,Total 2.3 mg/dL (0.2-1.3); Blood Urea Nitrogen 17 mg/dL (9-20); Calcium 8.7 mg/dL (8.4-10.2); Carbon Dioxide 27 mmol/L (22-30); Chloride 107 mmol/L (98-107); Estimated CRCL calculation 69 ml/min; Estimated Glomerular Filt Rate > 60; Glucose 135 mg/dL (65-110); Magnesium 1.8 mg/dL (1.6-2.3); Potassium 3.6 mmol/L (3.4-5.0); Sodium 138 mmol/L (137-145)
[2023-12-05] MEDS: chlordiazePOXIDE (*CRX) 10 MG CAPSULE PO ×3 (06:29→21:14)
--- NOTE | 2023-12-05 09:09 | PM.IMPN ---
Progress Note: A&P Assessment and Plan (1) Intertrochanteric fracture of right hip: Code(s): S72.141A - Displaced intertrochanteric fracture of right femur, initial encounter for closed fracture Status: Acute (2) Normocytic anemia: Code(s): D64.9 - Anemia, unspecified Status: Acute (3) Daily consumption of alcohol: Code(s): Z78.9 - Other specified health status Status: Acute (4) Gout: Qualifiers: Chronicity: chronic Gout etiology: unspecified cause Gout site: unspecified site Presence of tophus: without tophus Qualified Code(s): M1A.9XX0 - Chronic gout, unspecified, without tophus (tophi) Code(s): M10.9 - Gout, unspecified Status: Acute Plan This is a 73-year-old male with hypertension gout recurrent DVT on Eliquis and daily alcohol consumption presented to the ED after a fall sustaining right hip pain. He states while taking out the trash he lost his balance and fell hard on his right hip with immediate severe pain. He was unable to get himself up and called EMS. He denies any head trauma or loss of consciousness in the fall. No other injuries were reported. The ED showed intertrochanteric fracture of right femur. Orthopedic has been consulted. Putnam in place. Labs reviewed. Chronic alcohol use on Librium scheduled Eliquis on hold for potential surgery. Chest x-ray with lungs. EKG showing SVT. Telemetry placed intermittently tachycardic. Added beta-samuel AFib versus SVT. No cardiac history. Asymptomatic. TSH normal electrolytes unremarkable will replace potassium Cardiology consulted awaiting their recommendations Subjective Date/time seen: 12/05/23 09:09 Interval history: Patient went intermittently tachycardic yesterday evening times to 180 beats per minute EKG with SVT versus atrial tachycardia. Beta-samuel started. TSH normal. Echo ordered. Scheduled Librium. Received digoxin in a.m. blood pressure borderline. Cardiology has been consulted Review of Systems Review of Systems: All systems reviewed & are unremarkable except as noted in HPI and below Exam Narrative: General: Nontoxic-appearing male sitting up in bed in no distress. HEENT: Normocephalic, atraumatic. PERRL, EOMI. Sclera anicteric. Oral mucosa moist. Neck: Supple. Respiratory: Lungs are clear to auscultation bilaterally. Cardiovascular: Tachycardic with S1-S2. Gastrointestinal: Abdomen is soft, flat, nontender, and nondistended with positive bowel sounds. Skin: Warm and dry. Extremities: No cyanosis, clubbing, or edema. Radial and pedal pulses intact. Musculoskeletal: Right lower extremity is shortened and externally rotated. He is tender to palpation over the anterolateral hip. No gross deformities noted. He is neurovascularly intact distal to the fracture. Neurological: Alert. Cranial nerves 2-12 are grossly intact. No gross focal deficits to casual conversation. Psychiatric: Pleasant and cooperative with normal mood and affect. Judgment and insight intact. Objective Data Vital Signs Vital Signs: Vital Signs - 24 hr 12/04/23 09:57 12/04/23 14:00 12/04/23 15:25 Temperature 99.7 F H Pulse Rate 79 Pulse Rate [Monitor] Respiratory Rate 16 Blood Pressure 103/52 L 96/52 L Pulse Oximetry 95 97 Oxygen Delivery Room Air 12/04/23 15:25 12/04/23 18:43 12/04/23 19:55 Temperature Pulse Rate 179 H 182 H Pulse Rate [Monitor] Respiratory Rate Blood Pressure 110/72 Pulse Oximetry Oxygen Delivery 12/04/23 19:56 12/04/23 16:00 12/04/23 20:00 Temperature Pulse Rate 182 H 86 87 Pulse Rate [Monitor] Respiratory Rate Blood Pressure Pulse Oximetry Oxygen Delivery 12/04/23 20:00 12/04/23 21:30 12/04/23 22:37 Temperature 99.5 F Pulse Rate 91 103 H Pulse Rate [Monitor] Respiratory Rate 16 Blood Pressure 115/62 104/56 L Pulse Oximetry 99 Oxygen Delivery Room Air 12/05/23 00:00 03
[2023-12-05] MEDS: SODIUM CHLORIDE 0.9% IV 1,000 ML 75 ML IV CONT ×2 (09:12→21:15)
--- NOTE | 2023-12-05 09:31 | PC.NURSE ---
POC reviewed with Dr. Caballero This RN questioned if the pt is NPO with meds. NPO without meds. T.O.R.Luisa/ [place] RN 1.) NPO with sips et medications
[2023-12-05] MEDS: FOLIC ACID 1 MG TABLET PO (09:41)
[2023-12-05] MEDS: METOPROLOL TARTRATE 12.5 MG TABLET PO ×2 (09:41→21:14)
[2023-12-05] MEDS: THIAMINE HCL 100 MG TABLET PO (09:42)
[2023-12-05] MEDS: LORATADINE 10 MG TABLET PO (09:42)
[2023-12-05] MEDS: allopurinoL 100 MG TABLET 200 MG PO (09:42)
[2023-12-05] MEDS: THERAPEUTIC MULTIVITAMINS/MINERALS TAB (*BKC) 1 TABLET PO (09:42)
[2023-12-05] MEDS: POTASSIUM CHLORIDE 20 MEQ ER TABLET 40 MEQ PO (10:02)
--- NOTE | 2023-12-05 10:57 | PCOTNOTE ---
Patient has not had surgery. Scheduled for tomorrow. Will follow.
--- NOTE | 2023-12-05 11:49 | PCPTNOTE ---
Patient not having surgery today, will evaluate patient after surgery and orders written by orthopedic surgery.
--- NOTE | 2023-12-05 13:37 | PM.CNCAR ---
Assessment and Plan Assessment and plan (1) Intertrochanteric fracture of right hip: Code(s): S72.141A - Displaced intertrochanteric fracture of right femur, initial encounter for closed fracture Status: Acute Assessment and Plan: Low risk for surgery (2) SVT (supraventricular tachycardia): Code(s): I47.10 - Supraventricular tachycardia, unspecified Status: Acute Assessment and Plan: Patient is having frequent paroxysms of what appears to be atrial tachycardia. Has frequent PACs. This is not atrial flutter or fibrillation. Continue metoprolol. If metoprolol does not work, which transition to a calcium channel samuel such as short-acting diltiazem 30 mg p.o. Q 6-8 hours as on his blood pressure tolerate. Would discontinue metoprolol at that point. 2D echocardiogram Doppler be ordered and reviewed. Will check a T4 level. TSH was normal. Magnesium and potassium are low normal. Will give 1 g of IV magnesium as well as 40 mEq of p.o. potassium x1. 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 Status: Acute Assessment and Plan: Holding Eliquis for upcoming surgery (4) Chronic thromboembolic disease: Code(s): I74.9 - Embolism and thrombosis of unspecified artery Status: Acute Assessment and Plan: Previously on long-term anticoagulation (5) Alcohol abuse: Code(s): F10.10 - Alcohol abuse, uncomplicated Status: Acute Assessment and Plan: Drinks daily Alcohol cessation or at least reduction is recommended (6) Benign essential hypertension: Code(s): I10 - Essential (primary) hypertension Status: Acute Assessment and Plan: Currently has low blood pressure History of Present Illness History of Present Illness Consult date/time: 12/05/23 13:37 Requesting physician: Yany Leary PA-C Consult reason: Other (Tachycardia) Reason For Visit: R Hip Fracture Narrative: Reason for consultation: Paroxysmal tachycardia Date of service 12/05/2023 Requesting provider: Yany Leary History patient is a 73-year-old male who appears older than stated age who presented the hospital following a fracture. He was found have a intratrochanteric femur fracture. While on telemetry, he has been having paroxysms of atrial tachycardia/SVT and frequent PACs. Cardiology consultation was requested. He denies any chest pain, syncope, presyncope, paroxysmal nocturnal dyspnea, orthopnea, edema palpitations. He does drink alcohol on a daily basis at least 2 beers per day. He also is having gait instability. He fell resulting in the fracture in part to the gait instability. He has no previous cardiac history. Is on anticoagulation for recurrent thromboembolic disease. Review of Systems Review of Systems: All systems reviewed & are unremarkable except as noted in HPI and below Constitutional: Constitutional: Denies body ache(s) Eyes: Eyes: Denies blurry vision ENT: Reports Normal hearing present Cardiovascular: Cardiovascular: Denies chest pain Respiratory: Respiratory: Denies hemoptysis Gastrointestinal: Gastrointestinal: Denies melena Genitourinary: Genitourinary: Denies hematuria Musculoskeletal: Musculoskeletal: Denies myalgias Integumentary/Breasts: Skin/Breast: Denies pruritus Neurologic: Denies Abnormal speech present Psychiatric: Psychiatric: Denies anxiety Endocrine: Endocrine: Denies excessive sweating Hematologic/Lymphatic: Hematologic/Lymphatic: Denies easy bleeding Allergic/Immunologic: Allergic/Immunologic: Denies GI upset with certain foods PMFSH Past Medical History Medical History Anemia Daily consumption of alcohol Deep venous thrombosis Gout Hiatal hernia Hypertension Kidney stones long-term current use of anticoagulant Osteoporosis Schatzki's ring Seasonal allerg
[2023-12-05 14:28] LABS: T4 Thyroxine 4.22 ug/dL (5.53-11.0)
--- NOTE | 2023-12-05 16:17 | PC.NURSE ---
A page has been placed for clarification of Potassium 40 mEq K 3.6
[2023-12-05] MEDS: MAGNESIUM SULF 1 GM/D5W 100 ML 1 GM/100 ML BAG IVPB (16:29)
[2023-12-06] VITALS (31 sets, daily range): BP systolic 91–116; BP diastolic 48–76; PULSE 73–95; RESP 12–22; TEMP 35.9–37.4; O2SAT 94–100
--- NOTE | 2023-12-06 | ECHO_ITS ---
Patient Info Name: Leoncio Queen Age: 73 years : 1950 Gender: Male Ht: 67 in Wt: 134 lbs BSA: 1.69 m2 HR: 73 bpm BP: 109 / 53 mmHg Heart Rhythm: Sinus Rhythm Technical Quality: Fair Exam Date: 12/06/2023 11:32 AM Exam Location: Echo Lab Patient Status: Inpatient Admit Date: 12/04/2023 Staff Ordering Physician: Nuno Caballero MD Brakes Inspector: Asia Alegria RDCS Attending Provider: Robyn Vega MD Exam Type: CA echo dop color flow w con Study Info Indications - AFIB Complete two-dimensional, color flow and Doppler transthoracic echocardiogram is performed with contrast to opacify the left ventricle and to improve the deliniation of the left ventricle endocardial borders. Contrast/Agitated Saline Contrast/Ag. Saline: Definity Amount: 2.00 ml Administered By: Asia Alegria RDCS Existing IV Access: Yes IV Access Condition: patent with no signs of infiltration Summary 1. Left ventricular chamber dimension is normal. 2. Left ventricular systolic function is normal, estimated at 60-65%. 3. There is mildly increased left ventricular wall thickness. 4. The left ventricular diastolic function is normal. 5. There is mild aortic valve stenosis with a peak velocity of 161.72 cm/s, mean gradient of 5 mmHg, and aortic valve area of 1.71 cm2. 6. The aortic valve is probable trileaflet. 7. There is moderate aortic valve calcification. 8. There is mild tricuspid valve regurgitation. 9. The aortic root size at the sinus of Valsalva is mildly dilated. 10. The prox ascending aorta size is mildly dilated. Left Ventricle Left ventricular chamber dimension is normal. Left ventricular systolic function is normal, estimated at 60-65%. There is mildly increased left ventricular wall thickness. The left ventricular diastolic function is normal. Right Ventricle Right ventricular chamber dimension is normal. Right ventricular systolic function is normal. Left Atria Left atrial chamber dimension is normal. Right Atria Right atrial chamber dimension is normal. Atrial Septum Intact interatrial septum visualized by color flow imaging. Aortic Valve The aortic valve is probable trileaflet. There is mild aortic valve stenosis with a peak velocity of 161.72 cm/s, mean gradient of 5 mmHg, and aortic valve area of 1.71 cm2. There is trace aortic valve regurgitation. There is moderate aortic valve calcification. Pulmonic Valve The pulmonic valve is normal. There is no pulmonic valve stenosis. There is trace pulmonic regurgitation. Mitral Valve The mitral valve has normal leaflets. There is no mitral valve stenosis. There is trace mitral valve regurgitation. Tricuspid Valve The tricuspid valve leaflets are normal. There is no significant tricuspid valve stenosis. There is mild tricuspid valve regurgitation. No pulmonary hypertension, estimated pulmonary arterial systolic pressure is 28 mmHg. Pericardium/Pleural The pericardium appears normal. There is trivial pericardial effusion. Inferior Vena Cava Normal inferior vena cava with >50% collapse upon inspiration consistent with normal right atrial pressure, 10 mmHg. Aorta The aortic root size at the sinus of Valsalva is mildly dilated. The prox ascending aorta size is mildly dilated. Left Ventricular Outflow Tract Name Value Normal LVOT 2D
[2023-12-06] MEDS: ACETAMINOPHEN 325 MG TABLET 650 MG PO ×2 (02:19→10:26)
[2023-12-06 05:10] LABS: Basophils Percent Auto 0.2 % (0.2-1.2); Eosinophils Absolute Auto 0.1 K/mm3 (0-0.3); Hemoglobin 7.8 g/dL (14.0-18.0); Immature Granulocyte Absolute 0.04 K/mm3 (0.00-0.031); Immature Granulocyte Percent A 0.4 % (0-0.5); Lymphocytes Absolute Auto 1.68 K/mm3 (0.9-3.2); Lymphocytes Percent Auto 17.9 % (18.3-44.2); Mean Corpuscular HGB Conc 32.5 g/dl (32-36); Mean Corpuscular Hemoglobin 32.5 pg (26-34); Mean Platelet Volume 9.3 fl (7.4-10.4); Monocytes Percent Auto 10.4 % (2.6-8.5); Neutrophils Absolute Auto 6.6 K/mm3 (1.3-6.7); Neutrophils Percent Auto 70.1 % (45.5-73.1); Platelet Count Result 167 k/mm3 (150-375); White Blood Count 9.4 K/mm3 (4.5-10.0)
[2023-12-06 05:20] LABS: Alanine Aminotransferase 18 U/L (6-50); Albumin Level 3.2 g/dL (3.5-5.1); Alkaline Phosphatase 48 U/L (38-126); Anion Gap 3 mmol/L (8-16); Aspartate Amino Transferase 40 U/L (17-59); Bilirubin,Total 1.5 mg/dL (0.2-1.3); Blood Urea Nitrogen 16 mg/dL (9-20); Calcium 8.1 mg/dL (8.4-10.2); Carbon Dioxide 24 mmol/L (22-30); Chloride 111 mmol/L (98-107); Estimated CRCL calculation 82 ml/min; Estimated Glomerular Filt Rate > 60; Glucose 112 mg/dL (65-110); Magnesium 2.2 mg/dL (1.6-2.3); Potassium 3.6 mmol/L (3.4-5.0); Sodium 138 mmol/L (137-145)
[2023-12-06] MEDS: HYDROcodone/acetaminophen (*CRX) 5-325 MG TABLET 1 TAB PO (06:57)
[2023-12-06] MEDS: chlordiazePOXIDE (*CRX) 10 MG CAPSULE PO ×2 (06:58→22:51)
[2023-12-06] MEDS: MORPHINE SULFATE (*CRX) 2 MG/ML INJ IV PUSH (09:27)
[2023-12-06] MEDS: THERAPEUTIC MULTIVITAMINS/MINERALS TAB (*BKC) 1 TABLET PO (09:29)
[2023-12-06] MEDS: METOPROLOL TARTRATE 12.5 MG TABLET PO ×2 (09:29→20:31)
[2023-12-06] MEDS: allopurinoL 100 MG TABLET 200 MG PO (09:29)
[2023-12-06] MEDS: THIAMINE HCL 100 MG TABLET PO (09:29)
[2023-12-06] MEDS: FOLIC ACID 1 MG TABLET PO (09:44)
[2023-12-06] MEDS: LORATADINE 10 MG TABLET PO (09:44)
--- NOTE | 2023-12-06 10:43 | PM.PNCARD ---
Progress Note: A&P Assessment and Plan (1) Intertrochanteric fracture of right hip: Code(s): S72.141A - Displaced intertrochanteric fracture of right femur, initial encounter for closed fracture Status: Acute Assessment and Plan: Low risk for surgery (2) SVT (supraventricular tachycardia): Code(s): I47.10 - Supraventricular tachycardia, unspecified Status: Acute Assessment and Plan: Patient is having frequent paroxysms of what appears to be atrial tachycardia. Has frequent PACs. This is not atrial flutter or fibrillation. Continue metoprolol. If metoprolol does not work, which transition to a calcium channel samuel such as short-acting diltiazem 30 mg p.o. Q 6-8 hours as on his blood pressure tolerate. Would discontinue metoprolol at that point. 2D echocardiogram Doppler is ordered and will be reviewed. Potassium is 3.6 today. Will replace with KCL 40 mEq p.o. 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: Code(s): Z79.01 - [facility] (current) use of anticoagulants Status: Acute Assessment and Plan: Holding Eliquis for upcoming surgery (4) Chronic thromboembolic disease: Code(s): I74.9 - Embolism and thrombosis of unspecified artery Status: Acute Assessment and Plan: Previously on long-term anticoagulation (5) Alcohol abuse: Code(s): F10.10 - Alcohol abuse, uncomplicated Status: Acute Assessment and Plan: Drinks daily Alcohol cessation or at least reduction is recommended (6) Benign essential hypertension: Code(s): I10 - Essential (primary) hypertension Status: Acute Assessment and Plan: Currently has low blood pressure Subjective Date/time seen: 12/06/23 10:43 Interval history: 73-year-old admitted with fall and hip fracture. Cardiology consultation for tachycardia Date of service 12/06/2023: Review of telemetry shows less paroxysms of tachycardia. He denies any chest pain or shortness of breath. Has hip pain Review of Systems Review of Systems: All systems reviewed & are unremarkable except as noted in HPI and below Constitutional: Constitutional: Denies body ache(s) and Denies excessive sweating Eyes: Eyes: Denies blurry vision ENT: Reports Normal hearing present Cardiovascular: Cardiovascular: Denies chest pain Respiratory: Respiratory: Denies hemoptysis Gastrointestinal: Gastrointestinal: Denies melena Genitourinary: Genitourinary: Denies hematuria Musculoskeletal: Musculoskeletal: Denies myalgias Integumentary/Breasts: Skin/Breast: Denies pruritus Neurologic: Reports Normal hearing present and Denies Abnormal speech present Psychiatric: Psychiatric: Denies anxiety Endocrine: Endocrine: Denies excessive sweating Hematologic/Lymphatic: Hematologic/Lymphatic: Denies easy bleeding Allergic/Immunologic: Allergic/Immunologic: Denies GI upset with certain foods Exam Narrative: Awake alert oriented appears older than stated age Const: General: comfortable and no acute distress HENMT: Face/Nose/Sinus: Normal nares present Mouth: Yes moist mucous membranes Eyes: General: appearance normal, both eyes and all related structures Sclera: sclerae normal Neck: Neck: supple and no JVD Thyroid: thyroid normal Carotids: no bruits Chest: Other: No reproducible chest wall pain to palpation Resp: Effort & Inspection: normal respiratory effort Auscultation: clear to auscultation bilaterally Cardio: Rate: regular rate Rhythm: regular rhythm Heart sounds: no murmurs GI: Inspection: non-distended Auscultation: normal bowel sounds Skin: General skin exam: normal color Neuro: Cranial nerves: Yes Normal hearing present Speech: normal speech and No Abnormal speech present Sensory Exam: normal sensation Extrem: General: normal to inspection Psych: Mental Status: mental status grossly normal Affect: normal affect Objective Data Vital Signs Vital Sig
[2023-12-06] MEDS: SODIUM CHLORIDE 0.9% IV 1,000 ML 75 ML IV CONT (11:20)
[2023-12-06] MEDS: PERFLUTREN LIPID MICROSPHERES 1.5 ML VIAL DILUTED TO 10 ML TOTAL VOLUME IV PUSH (12:00)
[2023-12-06] MEDS: POTASSIUM CHLORIDE 20 MEQ PACKET (FOR LIQUID) 40 MEQ PO (12:33)
--- NOTE | 2023-12-06 12:53 | IVDEFINITY ---
Prior to administration of IV Definity the patient was educated on the risks and benefits of the imaging enhancing agent including potential adverse side effects. The patient verbalized understanding. Allergies were verified. No exclusion criteria were identified and at least one of the following inclusion criteria were met: 1) physician request, 2) patient technically difficult to image (per the [place] [employer] guidelines of two or more segments not discernable within the apical view), or 3) questionable left ventricular function. ?
--- NOTE | 2023-12-06 13:23 | PM.IMPN ---
Progress Note: A&P Assessment and Plan (1) Intertrochanteric fracture of right hip: Code(s): S72.141A - Displaced intertrochanteric fracture of right femur, initial encounter for closed fracture Status: Acute (2) Normocytic anemia: Code(s): D64.9 - Anemia, unspecified Status: Acute (3) Daily consumption of alcohol: Code(s): Z78.9 - Other specified health status Status: Acute (4) Gout: Qualifiers: Gout site: unspecified site Gout etiology: unspecified cause Chronicity: chronic Presence of tophus: without tophus Qualified Code(s): M1A.9XX0 - Chronic gout, unspecified, without tophus (tophi) Code(s): M10.9 - Gout, unspecified Status: Acute Plan This is a 73-year-old male with hypertension gout recurrent DVT on Eliquis and daily alcohol consumption presented to the ED after a fall sustaining right hip pain. He states while taking out the trash he lost his balance and fell hard on his right hip with immediate severe pain. He was unable to get himself up and called EMS. He denies any head trauma or loss of consciousness in the fall. No other injuries were reported. The ED showed intertrochanteric fracture of right femur. Orthopedic has been consulted. Put[place] in place. Labs reviewed. Chronic alcohol use on Librium scheduled Eliquis on hold for potential surgery. Chest x-ray with lungs. EKG showing SVT. Telemetry placed intermittently tachycardic. Added beta-samuel AFib versus SVT. No cardiac history. Asymptomatic. TSH normal electrolytes unremarkable will replace potassium next Cardiology consulted and appreciate recommendations. Echo done today. Await interpretation Acute on chronic anemia unclear etiology no signs of bleeding. Check FOBT. He is getting transfused 1 unit of PRBC prior to the planned surgery today. Will place on PPI Subjective Date/time seen: 12/06/23 13:23 Interval history: No overnight events. Proximal atrial tachycardia as slow down still has intermittent short runs telemetry reviewed. Blood pressure borderline. Labs reviewed H&H down to 7.8 Review of Systems Review of Systems: All systems reviewed & are unremarkable except as noted in HPI and below Exam Narrative: General: Nontoxic-appearing male sitting up in bed in no distress. HEENT: Normocephalic, atraumatic. PERRL, EOMI. Sclera anicteric. Oral mucosa moist. Neck: Supple. Respiratory: Lungs are clear to auscultation bilaterally. Cardiovascular: Regular rate and rhythm with S1-S2. Gastrointestinal: Abdomen is soft, flat, nontender, and nondistended with positive bowel sounds. Skin: Warm and dry. Extremities: No cyanosis, clubbing, or edema. Radial and pedal pulses intact. Musculoskeletal: Right lower extremity is shortened and externally rotated. He is tender to palpation over the anterolateral hip. No gross deformities noted. He is neurovascularly intact distal to the fracture. Neurological: Alert. Cranial nerves 2-12 are grossly intact. No gross focal deficits to casual conversation. Psychiatric: Pleasant and cooperative with normal mood and affect. Judgment and insight intact. Objective Data Vital Signs Vital Signs: Vital Signs - 24 hr 12/05/23 16:00 12/05/23 16:00 12/05/23 14:00 Temperature 98.7 F Pulse Rate 78 83 81 Pulse Rate [Bilateral Radial Palpation] Pulse Rate [Monitor] Respiratory Rate 28 H Blood Pressure 93/58 L Pulse Oximetry 98 Oxygen Delivery 12/05/23 16:00 12/05/23 16:00 12/05/23 18:00 Temperature Pulse Rate 94 Pulse Rate [Bilateral Radial Palpation] Pulse Rate [Monitor] 82 Respiratory Rate Blood Pressure Pulse Oximetry Oxygen Delivery Room Air 12/05/23 20:43 12/05/23 21:14 12/05/23 20:00 Temperature 97.7 F Pulse Rate 95 89 79 Pulse Rate [Bilateral Radial Palpation] Pulse Rate [Monitor] Respiratory Rate 20 Blood Pressure 102/75 Pulse Oximetry 100 Oxygen Delivery
[2023-12-06] MEDS: LACTATED RINGERS 1,000 ML 30 ML IV CONT ×2 (14:29→17:38)
--- NOTE | 2023-12-06 14:32 | WPDANESEPPF ---
Anes - Initial Pre Proc Eval Procedure: Operation Date: 12/06/23 15:00 Proposed Procedures p Right Intermedullary Nail - Neo Rivera MD Date/Time: 12/06/23 14:32 Surgeon: Robyn Vega MD Pre Op Diagnosis: R Hip Fracture Patient Data Age: 73 Gender: M Height: 1.7 m Weight: 61.8 kg Last Vital Signs Temp 37.1 C 12/06/23 13:56 Pulse 89 12/06/23 13:56 Resp 16 12/06/23 13:56 BP 100/54 L 12/06/23 13:56 Pulse Ox 100 12/06/23 13:56 O2 Del Method Room Air 12/06/23 12:00 Allergies Allergy/AdvReac Type Severity Reaction Status Date / Time No Known Allergies Allergy Verified 12/06/23 14:27 Home Medications Medication Instructions Recorded Confirmed Type cetirizine 10 mg tablet (Zyrtec) 10 mg PO DAILY 02/12/21 12/03/23 History alendronate 35 mg tablet 35 mg PO WEEKLY #12 tabs 06/08/22 12/03/23 Rx allopurinol 100 mg tablet 200 mg PO DAILY 08/24/22 12/03/23 History calcium carbonate 600 mg-vitamin 1 tablet PO BID 08/24/22 12/03/23 History D3 20 mcg (800 unit) chewable tablet (Caltrate 600 plus D) apixaban 5 mg tablet (Eliquis) 5 mg PO BID 12/03/23 12/03/23 History multivitamin with minerals-folic 1 tablet PO DAILY 12/03/23 12/03/23 History acid 0.4 mg tablet Laboratory Tests 12/04/23 12/06/23 13:19 04:26 WBC 9.4 K/mm3 (4.5-10.0) RBC 2.40 L M/mm3 (4.6-6.20) Hgb 7.8 L g/dL (14.0-18.0) Hct 24.0 L % (42.0-52.0) MCV 100.0 fl (80-100) MCH 32.5 pg (26-34) MCHC 32.5 g/dl (32-36) RDW 13.0 % (11.5-14.5) Plt Count 167 k/mm3 (150-375) MPV 9.3 fl (7.4-10.4) Immature Gran % (Auto) 0.4 % (0-0.5) Neut % (Auto) 70.1 % (45.5-73.1) Lymph % (Auto) 17.9 L % (18.3-44.2) [place] % (Auto) 10.4 H % (2.6-8.5) Eos % (Auto) 1.0 % (0-4.4) Baso % (Auto) 0.2 % (0.2-1.2) Lymph # (Auto) 1.68 K/mm3 (0.9-3.2) [place] # (Auto) 1.0 H K/mm3 (0.1-0.6) Eos # (Auto) 0.1 K/mm3 (0-0.3) Baso # (Auto) 0.0 K/mm3 (0.0-0.1) Abs Immat Gran (auto) 0.04 H K/mm3 (0.00-0.031) Absolute Neuts (auto) 6.6 K/mm3 (1.3-6.7) Absolute Nucleated RBC 0.000 K/mm3 (0.0-0.012) Nucleated RBC % 0.0 % (0.0-0.2) Sodium 138 mmol/L (137-145) Potassium 3.6 mmol/L (3.4-5.0) Chloride 111 H mmol/L (98-107) Carbon Dioxide 24 mmol/L (22-30) Anion Gap 3 L mmol/L (8-16) BUN 16 mg/dL (9-20) Creatinine 0.60 L mg/dL (0.7-1.3) Estim Creat Clear Calc 82 ml/min Estimated GFR > 60 (59 - ) Glucose 112 H mg/dL (65-110) Calcium 8.1 L mg/dL (8.4-10.2) Magnesium 2.2 mg/dL (1.6-2.3) Total Bilirubin 1.5 H mg/dL (0.2-1.3) AST 40 U/L (17-59) ALT 18 U/L (6-50) Alkaline Phosphatase 48 U/L (38-126) Total Protein 6.0 L g/dL (6.3-8.2) Albumin 3.2 L g/dL (3.5-5.1) Blood Type A Positive Antibody Screen Negative Crossmatch See Detail Patient hx anesthesia problems: none Family hx anesthesia problems: none Results Review: All pre-operative results and documents have been reviewed as part of the pre-operative evaluation. 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
[2023-12-06] MEDS: fentaNYL CITRATE INJ (*CRX) 100 MCG/2 ML VIAL 50 MCG IV PUSH (14:35)
--- NOTE | 2023-12-06 14:56 | WPDHPUPDATE1 ---
History and Physical Update Update Date/Time: 12/06/23 14:56 History and Physical has been reviewed, including an updated exam of the patient. There are NO changes in the patient's condition. Risks, benefits, and alternatives have been discussed and questions answered. Patient agrees to proceed with procedure.
[2023-12-06] MEDS: ceFAZolin 2 GM/D5W 50 ML 2 GM/50 ML BAG IVPB ×2 (15:06→23:06)
[2023-12-06] MEDS: TRANEXAMIC ACID 1,000MG/ISO100 1,000 MG/100 ML BAG 200 MG IVPB (15:29)
[2023-12-06] MEDS: TRANEXAMIC ACID 1,000 MG/10 ML AMPUL 1000 MG IV PUSH (16:06)
--- NOTE | 2023-12-06 16:30 | W.PM.PROC2 ---
Procedure Note - Detailed Date of Procedure 12/06/23 Pre-op Diagnosis R Intratrochanteric hip Fracture Post-op Diagnosis Same Procedure Performed INSERTION FEMORAL SAM RIGHT HIP Surgeon Neo Rivera MD Anesthesia General Description of Procedure THE PATIENT WAS TAKEN TO THE OPERATING ROOM AND PLACED ON A FRACTURE TABLE AFTER GIVEN GENERAL ANESTHESIA. THE RIGHT LOWER EXTREMITY WAS PLACED IN A TRACTION BOOT AND USING SOME TRACTION AND INTERNAL ROTATION THE INTER TROCHANTERIC FRACTURE WAS REDUCED TO ANATOMIC POSITION. NEXT THE RIGHT LOWER EXTREMITY WAS PREPPED AND DRAPED IN THE STERILE FASHION. AN INCISION WAS MADE PROXIMAL TO THE TIP OF THE GREATER TROCHANTER AND DISSECTION CONTINUED TILL THE TIP OF THE GREATER TROCHANTER WAS PALPATED. A GUIDE PIN WAS PLACED DOWN THE FEMORAL CANAL AND PAST THE FRACTURE SITE. THIS WAS CHECKED ON FLUOROSCOPY AND FOUND TO BE IN GOOD POSITION. AN INITIAL REAMER WAS USED TO REAM THE FEMORAL CANAL. A 11 BY 200 MM GAMMA SAM WAS INSERTED TILL THE CORRECT POSITION WAS IDENTIFIED ON XRAY. A GUIDE PIN WAS INSERTED THROUGH THE FEMORAL NECK AT [address] TILL IT REACHED THE TIP OF THE SUB CHONDRAL BONE SEEN ON XRAY. AFTER REAMING, LAG SCREW WAS INSERTED MEASURING 105 MM. XRAYS SHOWED IT TO BE IN GOOD POSITION. THE LAG SCREW WAS LOCKED PROXIMALLY WITH A LOCKING SCREW. A DEROTATIONAL ADDITIONAL SCREW WAS PLACED WELL IN GOOD POSITION. NEXT A DISTAL LOCKING SCREW WAS PLACED ACROSS THE SAM AND WAS IN GOOD POSITION ON XRAY. THE TRACTION WAS RELEASED. THE WOUNDS WERE WASHED. THE DEEP FASCIA WAS REPAIRED WITH 1 VICRYL SUTURE, THE SUB CUTANEOUS LAYER WITH 2-0 VICRYL, AND THE SKIN WITH CARLOS. THE WOUNDS WERE WASHED AND THEN STERILE DRESSING WAS APPLIED. PATIENT WAS EXTUBATED AND SENT TO RECOVERY ROOM. Estimated Blood Loss 100 Urine Output 300 Complications No immediate complications Condition Stable Disposition PACU
--- NOTE | 2023-12-06 17:22 | PC.NURSE ---
patient off the unit at 1600
[2023-12-06] MEDS: fentaNYL CITRATE INJ (*CRX) 100 MCG/2 ML VIAL 25 MCG IV PUSH ×3 (17:34→17:45)
[2023-12-06 18:38] LABS: Hematocrit 26.1 % (42.0-52.0); Hemoglobin 8.4 g/dL (14.0-18.0)
[2023-12-06] MEDS: SODIUM CHLORIDE 0.9% IV 1,000 ML 125 ML IV CONT (19:05)
[2023-12-06] MEDS: VANCOMYCIN 1,000 MG/NS 250 ML 1,000 MG/250 ML BAG 250 MG IVPB (19:05)
[2023-12-06] MEDS: HYDROcodone/acetaminophen (*CRX) 7.5-325 MG TABLET 1 TAB PO ×2 (19:06→22:51)
[2023-12-06] MEDS: CALCIUM/VITAMIN D 500 MG/5 MCG (200 I.U.) TABLET PO (19:08)
[2023-12-06] MEDS: SENNA/DOCUSATE SODIUM TABLET 2 TAB PO (19:08)
[2023-12-06] MEDS: FAMOTIDINE 20 MG TABLET PO (20:31)
[2023-12-06] MEDS: PANTOPRAZOLE SODIUM IV 40 MG VIAL IV PUSH (20:56)
[2023-12-07] VITALS (20 sets, daily range): BP systolic 84–114; BP diastolic 49–79; PULSE 60–88; RESP 16–22; TEMP 36.4–37.2; O2SAT 96–100
[2023-12-07] MEDS: SODIUM CHLORIDE 0.9% IV 1,000 ML 125 ML IV CONT (05:04)
[2023-12-07] MEDS: VANCOMYCIN 1,000 MG/NS 250 ML 1,000 MG/250 ML BAG 250 MG IVPB (05:07)
[2023-12-07] MEDS: chlordiazePOXIDE (*CRX) 10 MG CAPSULE PO ×3 (05:11→22:52)
[2023-12-07 05:16] LABS: Alanine Aminotransferase 18 U/L (6-50); Albumin Level 2.9 g/dL (3.5-5.1); Alkaline Phosphatase 46 U/L (38-126); Anion Gap 4 mmol/L (8-16); Aspartate Amino Transferase 35 U/L (17-59); Bilirubin,Total 1.5 mg/dL (0.2-1.3); Blood Urea Nitrogen 13 mg/dL (9-20); Calcium 7.8 mg/dL (8.4-10.2); Carbon Dioxide 23 mmol/L (22-30); Chloride 111 mmol/L (98-107); Estimated CRCL calculation 84 ml/min; Estimated Glomerular Filt Rate > 60; Glucose 169 mg/dL (65-110); Magnesium 2.1 mg/dL (1.6-2.3); Potassium 4.3 mmol/L (3.4-5.0); Sodium 138 mmol/L (137-145)
[2023-12-07] MEDS: HYDROcodone/acetaminophen (*CRX) 7.5-325 MG TABLET 1 TAB PO ×3 (06:19→20:46)
[2023-12-07] MEDS: ceFAZolin 2 GM/D5W 50 ML 2 GM/50 ML BAG IVPB ×2 (06:24→14:48)
[2023-12-07 07:13] LABS: Basophils Percent Auto 0.1 % (0.2-1.2); Hemoglobin 7.4 g/dL (14.0-18.0); Immature Granulocyte Absolute 0.04 K/mm3 (0.00-0.031); Immature Granulocyte Percent A 0.4 % (0-0.5); Lymphocytes Absolute Auto 0.66 K/mm3 (0.9-3.2); Lymphocytes Percent Auto 6.7 % (18.3-44.2); Mean Corpuscular HGB Conc 32.2 g/dl (32-36); Mean Corpuscular Hemoglobin 31.9 pg (26-34); Mean Corpuscular Volume 99.1 fl (80-100); Mean Platelet Volume 9.6 fl (7.4-10.4); Monocytes Absolute Auto 0.8 K/mm3 (0.1-0.6); Monocytes Percent Auto 8.5 % (2.6-8.5); Neutrophils Absolute Auto 8.3 K/mm3 (1.3-6.7); Neutrophils Percent Auto 84.3 % (45.5-73.1); Platelet Count Result 157 k/mm3 (150-375); Red Blood Count 2.32 M/mm3 (4.6-6.20); Red Cell Distribution Width 13.8 % (11.5-14.5); White Blood Count 9.8 K/mm3 (4.5-10.0)
[2023-12-07] MEDS: LORATADINE 10 MG TABLET PO (08:51)
[2023-12-07] MEDS: PANTOPRAZOLE SODIUM IV 40 MG VIAL IV PUSH ×2 (08:51→20:35)
[2023-12-07] MEDS: SENNA/DOCUSATE SODIUM TABLET 2 TAB PO ×2 (08:51→17:18)
[2023-12-07] MEDS: allopurinoL 100 MG TABLET 200 MG PO (08:52)
[2023-12-07] MEDS: CALCIUM/VITAMIN D 500 MG/5 MCG (200 I.U.) TABLET PO ×2 (08:52→17:18)
[2023-12-07] MEDS: FOLIC ACID 1 MG TABLET PO (08:53)
[2023-12-07] MEDS: THIAMINE HCL 100 MG TABLET PO (08:53)
[2023-12-07] MEDS: FAMOTIDINE 20 MG TABLET PO ×2 (08:54→20:44)
[2023-12-07] MEDS: METOPROLOL TARTRATE 12.5 MG TABLET PO ×2 (08:54→20:45)
[2023-12-07] MEDS: polyethylene glycoL 3350 17 GM POWD.PACK PO (08:55)
[2023-12-07] MEDS: THERAPEUTIC MULTIVITAMINS/MINERALS TAB (*BKC) 1 TABLET PO (08:56)
--- NOTE | 2023-12-07 12:38 | PM.IMPN ---
Progress Note: A&P Assessment and Plan (1) Intertrochanteric fracture of right hip: Code(s): S72.141A - Displaced intertrochanteric fracture of right femur, initial encounter for closed fracture Status: Acute (2) Normocytic anemia: Code(s): D64.9 - Anemia, unspecified Status: Acute (3) Daily consumption of alcohol: Code(s): Z78.9 - Other specified health status Status: Acute (4) Gout: Qualifiers: Chronicity: chronic Gout etiology: unspecified cause Gout site: unspecified site Presence of tophus: without tophus Qualified Code(s): M1A.9XX0 - Chronic gout, unspecified, without tophus (tophi) Code(s): M10.9 - Gout, unspecified Status: Acute Plan This is a 73-year-old male with hypertension gout recurrent DVT on Eliquis and daily alcohol consumption presented to the ED after a fall sustaining right hip pain. He states while taking out the trash he lost his balance and fell hard on his right hip with immediate severe pain. He was unable to get himself up and called EMS. He denies any head trauma or loss of consciousness in the fall. No other injuries were reported. The ED showed intertrochanteric fracture of right femur. Orthopedic has been consulted. [place] in place. Labs reviewed. Chronic alcohol use on Librium scheduled Eliquis on hold for potential surgery. Chest x-ray with lungs. EKG showing SVT. Telemetry placed intermittently tachycardic. Added beta-samuel AFib versus SVT. No cardiac history. Asymptomatic. TSH normal electrolytes unremarkable will replace potassium next Cardiology consulted and appreciate recommendations. Echo with EF 60-65% mild aortic valve stenosis mild TR mildly increased left ventricular wall thickness. Resume Eliquis Acute on chronic anemia unclear etiology no signs of bleeding. Check FOBT. Status post 1 unit preoperative transfusion of PRBC. Continue to monitor H&H. Started on PPI Status post right hip surgery 12/06/2023. PT OT DVT prophylaxis with Eliquis which is on hold will resume but may need to hold if H&H continues to drop Subjective Date/time seen: 12/07/23 12:38 Interval history: No overnight events. Pain is controlled. Telemetry reviewed. No significant arrhythmia noted Review of Systems Review of Systems: All systems reviewed & are unremarkable except as noted in HPI and below Exam Narrative: General: Nontoxic-appearing male sitting up in bed in no distress. HEENT: Normocephalic, atraumatic. PERRL, EOMI. Sclera anicteric. Oral mucosa moist. Neck: Supple. Respiratory: Lungs are clear to auscultation bilaterally. Cardiovascular: Regular rate and rhythm with S1-S2. Gastrointestinal: Abdomen is soft, flat, nontender, and nondistended with positive bowel sounds. Skin: Warm and dry. Extremities: No cyanosis, clubbing, or edema. Radial and pedal pulses intact. Musculoskeletal: Right lower extremity with dressing in place Neurological: Alert. Cranial nerves 2-12 are grossly intact. No gross focal deficits to casual conversation. Psychiatric: Pleasant and cooperative with normal mood and affect. Judgment and insight intact. Objective Data Vital Signs Vital Signs: Vital Signs - 24 hr 12/06/23 12:46 12/06/23 13:11 12/06/23 13:56 Temperature 99.3 F 98.9 F 98.7 F Pulse Rate 76 74 89 Pulse Rate [Bilateral Radial Palpation] Pulse Rate [Monitor] Respiratory Rate 14 16 16 Blood Pressure 93/49 L 91/58 L 100/54 L Pulse Oximetry 98 98 100 Oxygen Delivery Oxygen Flow Rate 12/06/23 14:29 12/06/23 14:56 12/06/23 15:07 Temperature 98.9 F 98.1 F 98.9 F Pulse Rate 89 90 90 Pulse Rate [Bilateral Radial Palpation] Pulse Rate [Monitor] Respiratory Rate 16 14 12 Blood Pressure 108/54 L 100/52 L 110/48 L Pulse Oximetry 100 100 100 Oxygen Delivery Room Air Oxygen Flow Rate 12/06/23 16:30 12/06/23 16:45 12/06/23 17:00 Temperature 98.8 F Pulse Rate 88 77 81 Pulse Rate [[place]
--- NOTE | 2023-12-07 19:53 | PM.PNORT ---
Progress Note: A&P Assessment and Plan (1) Intertrochanteric fracture of right hip: Code(s): S72.141A - Displaced intertrochanteric fracture of right femur, initial encounter for closed fracture Status: Acute Assessment and Plan: POD 1 DOING WELL. CONTINUE CURRENT REGIMEN. Subjective Subjective Date/Time Seen: 12/07/23 19:53 Interval history: POD 1 DOING WELL, NO CALF PAIN Exam Extrem: Other: VSS AFEBRILE DRESSING DRY NV INTACT NEG HOMANS SIGN, CALF SOFT NON TEDER THIGH SOFT NON TENDER Objective Data Vital Signs Vital Signs: Vital Signs - 24 hr 12/06/23 20:31 12/06/23 20:39 12/06/23 20:00 Temperature 36.3 C L Pulse Rate 88 84 84 Pulse Rate [Bilateral Radial Palpation] Pulse Rate [Monitor] Pulse Rate [Right Pedal (Dorsalis Pedis) Palpation] Respiratory Rate 16 16 Blood Pressure 96/59 L Pulse Oximetry 98 98 Oxygen Delivery Room Air 12/07/23 00:03 12/07/23 02:12 12/06/23 20:00 Temperature 36.4 C 36.4 C L Pulse Rate 79 60 87 Pulse Rate [Bilateral Radial Palpation] Pulse Rate [Monitor] Pulse Rate [Right Pedal (Dorsalis Pedis) Palpation] Respiratory Rate 16 16 Blood Pressure 84/53 L 90/63 L Pulse Oximetry 96 97 Oxygen Delivery 12/06/23 22:00 12/07/23 00:00 12/07/23 02:00 Temperature Pulse Rate 87 67 60 Pulse Rate [Bilateral Radial Palpation] Pulse Rate [Monitor] Pulse Rate [Right Pedal (Dorsalis Pedis) Palpation] Respiratory Rate Blood Pressure Pulse Oximetry Oxygen Delivery 12/07/23 00:00 12/07/23 00:00 12/07/23 04:00 Temperature Pulse Rate 60 Pulse Rate [Bilateral Radial Palpation] 74 Pulse Rate [Monitor] 68 Pulse Rate [Right Pedal (Dorsalis Pedis) Palpation] Respiratory Rate 16 Blood Pressure 90/63 L Pulse Oximetry 97 Oxygen Delivery Room Air 12/07/23 04:00 12/07/23 04:00 12/07/23 05:36 Temperature 36.4 C Pulse Rate 60 75 76 Pulse Rate [Bilateral Radial Palpation] Pulse Rate [Monitor] Pulse Rate [Right Pedal (Dorsalis Pedis) Palpation] Respiratory Rate 16 16 Blood Pressure 98/56 L Pulse Oximetry 97 100 Oxygen Delivery Room Air 12/07/23 06:44 12/07/23 07:49 12/07/23 08:00 Temperature 36.6 C Pulse Rate 71 71 Pulse Rate [Bilateral Radial Palpation] Pulse Rate [Monitor] Pulse Rate [Right Pedal (Dorsalis Pedis) Palpation] Respiratory Rate 18 Blood Pressure 89/64 L Pulse Oximetry 98 Oxygen Delivery Room Air 12/07/23 08:54 12/07/23 11:40 12/07/23 11:46 Temperature 36.4 C Pulse Rate 66 71 Pulse Rate [Bilateral Radial Palpation] Pulse Rate [Monitor] Pulse Rate [Right Pedal (Dorsalis Pedis) Palpation] Respiratory Rate 20 Blood Pressure 99/56 L Pulse Oximetry 100 Oxygen Delivery Room Air 12/07/23 08:40 12/07/23 10:00 12/07/23 12:00 Temperature Pulse Rate 87 80 75 Pulse Rate [Bilateral Radial Palpation] Pulse Rate [Monitor] Pulse Rate [Right Pedal (Dorsalis Pedis) Palpation] Respiratory Rate Blood Pressure Pulse Oximetry Oxygen Delivery 12/07/23 12:00 12/07/23 16:00 12/07/23 14:00 Temperature 37.2 C Pulse Rate 88 79 Pulse Rate [Bilateral Radial Palpation] 75 Pulse Rate [Monitor] Pulse Rate [Right Pedal (Dorsalis Pedis) Palpation] 75 Respiratory Rate 22 H Blood Pressure 114/79 Pulse Oximetry 98 Oxygen Delivery 12/07/23 16:00 12/07/23 16:00 12/07/23 19:41 Temperature 36.4 C L Pulse Rate 88 76 Pulse Rate [Bilateral Radial Palpation] 88 Pulse Rate [Monitor] 88 Pulse Rate [Right Pedal (Dorsalis Pedis) Palpation] 88 Respiratory Rate 18 Blood Pressure 97/57 L Pulse Oximetry 99 Oxygen Delivery Intake/Output Intake/Output: Intake & Output 12/04/23 12/05/23 12/06/23 12/07/23 23:59 23:59 23:59 23:59 Intake Total 1480 2370.0 3140 1989 Output Total 775 850 600 900 Balance 705 1520.0 2540 1090 Meds/Results Medications:
[2023-12-07] MEDS: APIXABAN 5 MG TABLET PO (20:58)
[2023-12-08] VITALS (15 sets, daily range): BP systolic 87–109; BP diastolic 48–78; PULSE 63–87; RESP 16–20; TEMP 36.4–37.2; O2SAT 93–100
[2023-12-08 05:00] LABS: Basophils Percent Auto 0.1 % (0.2-1.2); Eosinophils Percent Auto 0.4 % (0-4.4); Immature Granulocyte Absolute 0.03 K/mm3 (0.00-0.031); Immature Granulocyte Percent A 0.4 % (0-0.5); Lymphocytes Absolute Auto 1.46 K/mm3 (0.9-3.2); Lymphocytes Percent Auto 20.8 % (18.3-44.2); Mean Corpuscular HGB Conc 32.4 g/dl (32-36); Mean Corpuscular Hemoglobin 31.9 pg (26-34); Mean Corpuscular Volume 98.6 fl (80-100); Mean Platelet Volume 9.2 fl (7.4-10.4); Monocytes Absolute Auto 0.7 K/mm3 (0.1-0.6); Monocytes Percent Auto 9.5 % (2.6-8.5); Neutrophils Absolute Auto 4.8 K/mm3 (1.3-6.7); Neutrophils Percent Auto 68.8 % (45.5-73.1); Platelet Count Result 166 k/mm3 (150-375); Red Cell Distribution Width 13.8 % (11.5-14.5)
[2023-12-08 05:10] LABS: Hematocrit 20.7 % (42.0-52.0); Hemoglobin 6.7 g/dL (14.0-18.0)
[2023-12-08 05:11] LABS: Alanine Aminotransferase 15 U/L (6-50); Albumin Level 2.8 g/dL (3.5-5.1); Alkaline Phosphatase 47 U/L (38-126); Anion Gap 2 mmol/L (4-12); Aspartate Amino Transferase 35 U/L (17-59); Bilirubin,Total 1.3 mg/dL (0.2-1.3); Blood Urea Nitrogen 12 mg/dL (9-20); Calcium 8.1 mg/dL (8.4-10.2); Carbon Dioxide 26 mmol/L (22-30); Chloride 109 mmol/L (98-107); Estimated CRCL calculation 78 ml/min; Estimated Glomerular Filt Rate > 60; Glucose 109 mg/dL (65-110); Magnesium 2.2 mg/dL (1.6-2.3); Potassium 3.7 mmol/L (3.4-5.0); Sodium 137 mmol/L (137-145)
[2023-12-08] MEDS: chlordiazePOXIDE (*CRX) 10 MG CAPSULE PO ×2 (06:32→21:35)
[2023-12-08] MEDS: HYDROcodone/acetaminophen (*CRX) 7.5-325 MG TABLET 1 TAB PO ×3 (06:40→21:55)
[2023-12-08] MEDS: TUBING, BLOOD PLUM PUMP TUBING 1 EACH XX (09:00)
--- NOTE | 2023-12-08 09:04 | PCOTNOTE ---
The patient treatment was not able to be completed. Patient stated he needed to make a few phone call but is agreeable for later . Will plan to continue treatment per plan of care.
[2023-12-08] MEDS: CALCIUM/VITAMIN D 500 MG/5 MCG (200 I.U.) TABLET PO ×2 (09:30→16:49)
[2023-12-08] MEDS: SENNA/DOCUSATE SODIUM TABLET 2 TAB PO ×2 (09:30→16:49)
[2023-12-08] MEDS: APIXABAN 5 MG TABLET PO ×2 (09:30→21:35)
[2023-12-08] MEDS: allopurinoL 100 MG TABLET 200 MG PO (09:30)
[2023-12-08] MEDS: LORATADINE 10 MG TABLET PO (09:31)
[2023-12-08] MEDS: FAMOTIDINE 20 MG TABLET PO ×2 (09:31→21:35)
[2023-12-08] MEDS: METOPROLOL TARTRATE 12.5 MG TABLET PO ×2 (09:31→21:34)
[2023-12-08] MEDS: FOLIC ACID 1 MG TABLET PO (09:31)
[2023-12-08] MEDS: THIAMINE HCL 100 MG TABLET PO (09:32)
[2023-12-08] MEDS: PANTOPRAZOLE SODIUM IV 40 MG VIAL IV PUSH ×2 (09:32→21:35)
[2023-12-08] MEDS: polyethylene glycoL 3350 17 GM POWD.PACK PO (09:32)
[2023-12-08] MEDS: THERAPEUTIC MULTIVITAMINS/MINERALS TAB (*BKC) 1 TABLET PO (09:32)
[2023-12-08] MEDS: SODIUM CHLORIDE 0.9% IV 250 ML 30 ML IV CONT (09:33)
--- NOTE | 2023-12-08 10:51 | PM.PNORT ---
Progress Note: A&P Assessment and Plan (1) Intertrochanteric fracture of right hip: Code(s): S72.141A - Displaced intertrochanteric fracture of right femur, initial encounter for closed fracture Status: Acute Assessment and Plan: POD 2 WITH POSTOP ANEMIA. AGREE WITH TRANSFUSION. CONTINUE PT Subjective Subjective Date/Time Seen: 12/08/23 10:51 Interval history: POD 2 DOING WELL. NO CALF PAIN. POOR PROGRESS WITH PT, POSTOP ANEMIA Exam Extrem: Other: VSS AFEBRILE DRESSING DRY NV INTACT NEG HOMANS SIGN, CALF NON TENDER, THIGH SOFT Objective Data Vital Signs Vital Signs: Vital Signs - 24 hr 12/07/23 11:40 12/07/23 11:46 12/07/23 12:00 Temperature 36.4 C Pulse Rate 71 75 Pulse Rate [Bilateral Radial Palpation] Pulse Rate [Monitor] Pulse Rate [Right Pedal (Dorsalis Pedis) Palpation] Respiratory Rate 20 Blood Pressure 99/56 L Pulse Oximetry 100 Oxygen Delivery Room Air 12/07/23 12:00 12/07/23 16:00 12/07/23 14:00 Temperature 37.2 C Pulse Rate 88 79 Pulse Rate [Bilateral Radial Palpation] 75 Pulse Rate [Monitor] Pulse Rate [Right Pedal (Dorsalis Pedis) Palpation] 75 Respiratory Rate 22 H Blood Pressure 114/79 Pulse Oximetry 98 Oxygen Delivery 12/07/23 16:00 12/07/23 16:00 12/07/23 19:41 Temperature 36.4 C L Pulse Rate 88 76 Pulse Rate [Bilateral Radial Palpation] 88 Pulse Rate [Monitor] 88 Pulse Rate [Right Pedal (Dorsalis Pedis) Palpation] 88 Respiratory Rate 18 Blood Pressure 97/57 L Pulse Oximetry 99 Oxygen Delivery 12/07/23 20:45 12/07/23 23:47 12/07/23 20:00 Temperature 36.4 C L Pulse Rate 74 66 Pulse Rate [Bilateral Radial Palpation] 88 Pulse Rate [Monitor] 88 Pulse Rate [Right Pedal (Dorsalis Pedis) Palpation] 88 Respiratory Rate 18 Blood Pressure 100/49 L 100/49 L Pulse Oximetry 98 Oxygen Delivery 12/07/23 20:00 12/07/23 20:00 12/07/23 22:00 Temperature Pulse Rate 66 82 67 Pulse Rate [Bilateral Radial Palpation] Pulse Rate [Monitor] Pulse Rate [Right Pedal (Dorsalis Pedis) Palpation] Respiratory Rate 18 Blood Pressure Pulse Oximetry 98 Oxygen Delivery Room Air 12/08/23 00:00 12/08/23 04:54 12/08/23 04:00 Temperature 36.4 C Pulse Rate 67 70 68 Pulse Rate [Bilateral Radial Palpation] Pulse Rate [Monitor] Pulse Rate [Right Pedal (Dorsalis Pedis) Palpation] Respiratory Rate 18 Blood Pressure 99/52 L Pulse Oximetry 99 Oxygen Delivery 12/08/23 07:34 12/08/23 09:31 12/08/23 10:01 Temperature 37.1 C 36.9 C Pulse Rate 72 75 80 Pulse Rate [Bilateral Radial Palpation] Pulse Rate [Monitor] Pulse Rate [Right Pedal (Dorsalis Pedis) Palpation] Respiratory Rate 16 16 Blood Pressure 87/48 L 101/52 L Pulse Oximetry 94 97 Oxygen Delivery 12/08/23 08:00 12/08/23 10:26 Temperature 37.2 C Pulse Rate 80 Pulse Rate [Bilateral Radial Palpation] Pulse Rate [Monitor] Pulse Rate [Right Pedal (Dorsalis Pedis) Palpation] 76 Respiratory Rate 20 Blood Pressure 109/78 Pulse Oximetry 98 Oxygen Delivery Intake/Output Intake/Output: Intake & Output 12/05/23 12/06/23 12/07/23 12/08/23 23:59 23:59 23:59 23:59 Intake Total 2370.0 3140 3040 0 Output Total 850 780 958 1157 Balance 1520.0 2540 2140 -1600 Meds/Results Medications: Active Medications Generic Name Dose Route Start Last Admin Trade Name Freq PRN Reason Stop Dose Admin Acetaminophen 650 mg 12/06/23 16:37 Acetaminophen 325 Mg Tablet PO Q6H PRN Mild Pain (1-3) or Fever Hydrocodone Bitart/Acetaminophen 1 tab 12/06/23 16:37 12/08/23 10:29 Hydrocodone/Acetaminophen (*Crx) 7.5-325 Mg Tablet PO 1 tab Q3H PRN Administration Pain Rated 4-6 Hydrocodone Bitart/Acetaminophen 2 tab 12/06/23 16:37 Hydrocodone/Acetaminophen (*Crx) 7.5-325 Mg Tablet PO Q6H PRN Pain Rated 7-10 Allopurinol 200 mg
--- NOTE | 2023-12-08 12:51 | PM.IMPN ---
Progress Note: A&P Assessment and Plan (1) Intertrochanteric fracture of right hip: Code(s): S72.141A - Displaced intertrochanteric fracture of right femur, initial encounter for closed fracture Status: Acute Assessment and Plan: Patient presents after a fall resulting acute right hip pain. No head trauma. No loss of consciousness. X-ray shows comminuted, acute intratrochanteric fracture of the proximal femur. Orthopedics was consulted and patient underwent insertion a right femoral savanah placement 12/06/23 The fall probably related to the patient's history of ataxia. No history of CVA. He does have a history of osteoporosis and is on treatment for this and this probably contributed to his fracture Patient appears to have tolerated the procedure well. Continue PT and OT. Pain management per Orthopedics. (2) Normocytic anemia: Code(s): D64.9 - Anemia, unspecified Status: Acute Assessment and Plan: Hemoglobin 11.9 on admission. Hemoglobin drifted downward. EBL was 100 mL. Hemoglobin dropped to 6.7 today probably related to the fact that he was on Eliquis, recent surgery and from the fracture itself Transfusion ordered. He mentions that he may have B12 deficiency and has not been compliant with B12 replacement. B12 level was normal in 2021. (3) SVT (supraventricular tachycardia): Code(s): I47.10 - Supraventricular tachycardia, unspecified Status: Acute Assessment and Plan: EKG on admission showed SVT with rate of 160. Not felt to be atrial flutter. Cardiology was consulted. Echocardiogram shows EF of 60-65% with mildly increased LV wall thickness and mild aortic stenosis. Metoprolol started. Heart rate controlled. Continue to monitor on telemetry. (4) Chronic thromboembolic disease: Code(s): I74.9 - Embolism and thrombosis of unspecified artery Status: Acute Assessment and Plan: Patient with a history of DVT on chronic Eliquis. His last DVT was in 2002. Eliquis has been resumed. Monitor closely given his anemia. (5) Daily consumption of alcohol: Code(s): Z78.9 - Other specified health status Status: Acute Assessment and Plan: Patient states he drinks 1-2 alcoholic drinks a day. He was educated about the benefits abstaining from alcohol use especially since he has a history of unsteady gait. He voices understanding of this. CIWA score was elevated initially but has much improved now down to 0-1 range Continue thiamine and folate. Back down on Librium. (6) Gout: Qualifiers: Gout site: unspecified site Gout etiology: unspecified cause Chronicity: chronic Presence of tophus: without tophus Qualified Code(s): M1A.9XX0 - Chronic gout, unspecified, without tophus (tophi) Code(s): M10.9 - Gout, unspecified Status: Acute Assessment and Plan: Stable Plan Code status -full DVT prophylaxis with Eliquis Subjective Date/time seen: 12/08/23 12:51 Interval history: 73yo male with hx of DVT, HTN and gout here for fall. Assuming care. Chart reviewed. Right hip pain is tolerable. Complains of left hip pain but believes this is because he has been sitting for too long in one position. No chest pain or shortness of breath. No withdrawal symptoms. He has been feeling off balance the past few years but worse over the past 8 months. He has seen his doctor for this and has undergone 2 rounds of physical therapy. Exam Narrative: AF 98.3 98/56 80 18 100% ra Gen - NARD sitit gup in the chair Chest - CTA bilaterally, nml RR CV - RRR S1/S2. Tele showing no significant dysrhythmias Abd - Soft, NT/ND, Positive BS Ext - right hip dressing clean, dry and intact. Right thigh is firm but not tense. No obvious ecchymosis noted anteriorly or laterally. Normal range of motion of the left hip, left knee and left ankle on limited exam Neuro - Alert and appropriate. No tremors Psych - N
[2023-12-08 13:43] LABS: Hematocrit 25.3 % (42.0-52.0); Hemoglobin 8.4 g/dL (14.0-18.0)
[2023-12-08] MEDS: POTASSIUM CHLORIDE 20 MEQ PACKET (FOR LIQUID) PO (15:14)
[2023-12-09] VITALS (15 sets, daily range): BP systolic 88–115; BP diastolic 46–72; PULSE 68–84; RESP 12–20; TEMP 36.4–36.9; O2SAT 93–99
[2023-12-09] MEDS: HYDROcodone/acetaminophen (*CRX) 7.5-325 MG TABLET 2 TAB PO ×2 (01:15→08:25)
[2023-12-09 04:59] LABS: Basophils Percent Auto 0.4 % (0.2-1.2); Eosinophils Absolute Auto 0.2 K/mm3 (0-0.3); Eosinophils Percent Auto 2.9 % (0-4.4); Hematocrit 25.2 % (42.0-52.0); Immature Granulocyte Absolute 0.03 K/mm3 (0.00-0.031); Immature Granulocyte Percent A 0.4 % (0-0.5); Lymphocytes Absolute Auto 1.91 K/mm3 (0.9-3.2); Lymphocytes Percent Auto 27.7 % (18.3-44.2); Mean Corpuscular HGB Conc 31.7 g/dl (32-36); Mean Corpuscular Volume 97.7 fl (80-100); Mean Platelet Volume 9.3 fl (7.4-10.4); Monocytes Absolute Auto 0.8 K/mm3 (0.1-0.6); Monocytes Percent Auto 11.4 % (2.6-8.5); Neutrophils Absolute Auto 3.9 K/mm3 (1.3-6.7); Neutrophils Percent Auto 57.2 % (45.5-73.1); Platelet Count Result 196 k/mm3 (150-375); Red Blood Count 2.58 M/mm3 (4.6-6.20); Red Cell Distribution Width 14.3 % (11.5-14.5); White Blood Count 6.9 K/mm3 (4.5-10.0)
[2023-12-09 05:10] LABS: Albumin Level 2.7 g/dL (3.5-5.1); Anion Gap -2 mmol/L (4-12); Blood Urea Nitrogen 12 mg/dL (9-20); Calcium 8.1 mg/dL (8.4-10.2); Carbon Dioxide 30 mmol/L (22-30); Chloride 108 mmol/L (98-107); Estimated CRCL calculation 90 ml/min; Estimated Glomerular Filt Rate > 60; Glucose 103 mg/dL (65-110); Potassium 3.7 mmol/L (3.4-5.0); Sodium 136 mmol/L (137-145)
[2023-12-09] MEDS: polyethylene glycoL 3350 17 GM POWD.PACK PO (09:36)
[2023-12-09] MEDS: SENNA/DOCUSATE SODIUM TABLET 2 TAB PO ×2 (09:39→17:07)
[2023-12-09] MEDS: POTASSIUM/PHOSPHORUS/SODIUM 1.5 GM PACKET 1 PACKET PO (09:39)
[2023-12-09] MEDS: METOPROLOL TARTRATE 12.5 MG TABLET PO ×2 (09:40→21:00)
[2023-12-09] MEDS: chlordiazePOXIDE (*CRX) 10 MG CAPSULE PO ×2 (09:41→21:00)
[2023-12-09] MEDS: FAMOTIDINE 20 MG TABLET PO ×2 (09:42→20:59)
[2023-12-09] MEDS: THERAPEUTIC MULTIVITAMINS/MINERALS TAB (*BKC) 1 TABLET PO (09:42)
[2023-12-09] MEDS: THIAMINE HCL 100 MG TABLET PO (09:42)
[2023-12-09] MEDS: FOLIC ACID 1 MG TABLET PO (09:42)
[2023-12-09] MEDS: LORATADINE 10 MG TABLET PO (09:42)
[2023-12-09] MEDS: allopurinoL 100 MG TABLET 200 MG PO (09:42)
[2023-12-09] MEDS: CALCIUM/VITAMIN D 500 MG/5 MCG (200 I.U.) TABLET PO ×2 (09:42→17:07)
[2023-12-09] MEDS: APIXABAN 5 MG TABLET PO ×2 (09:42→21:00)
[2023-12-09] MEDS: diazePAM (*CRX) 5 MG TABLET PO (10:02)
[2023-12-09] MEDS: HYDROcodone/acetaminophen (*CRX) 7.5-325 MG TABLET 1 TAB PO (14:27)
--- NOTE | 2023-12-09 14:40 | PC.NURSE ---
On 12/09/23, the student, [ Citlali Luther], provided care and completed Anki documentation on this patient. I have reviewed the student's documentation and agree with the findings.
--- NOTE | 2023-12-09 15:58 | PC.NURSE ---
Citlali, Student RN changed patients dressing with instructor. Dressing had minimal bloody drainage, roxy intact, and incision approximated. Patient tolerated well. Right leg is edematous and taut.
--- NOTE | 2023-12-09 16:10 | PM.IMPN ---
Progress Note: A&P Assessment and Plan (1) Intertrochanteric fracture of right hip: Code(s): S72.141A - Displaced intertrochanteric fracture of right femur, initial encounter for closed fracture Status: Acute Assessment and Plan: Patient presents after a fall resulting acute right hip pain. No head trauma. No loss of consciousness. X-ray shows comminuted, acute intratrochanteric fracture of the proximal femur. Orthopedics was consulted and patient underwent insertion a right femoral savanah placement 12/06/23 The fall probably related to the patient's history of ataxia. No history of CVA. He does have a history of osteoporosis and is on treatment for this and this probably contributed to his fracture Patient appears to have tolerated the procedure well. Continue PT and OT. BP soft - will decrease pain management (2) Normocytic anemia: Code(s): D64.9 - Anemia, unspecified Status: Acute Assessment and Plan: Hemoglobin 11.9 on admission. Hemoglobin drifted downward. EBL was 100 mL. Hemoglobin dropped to 6.7 (12/07) probably related to the fact that he was on Eliquis, recent surgery and from the fracture itself Transfusion ordered. He mentions that he may have B12 deficiency but B12 level was normal in 2021. Hgb climbed to 8 range. Follow for stability. Transfuse as needed (3) SVT (supraventricular tachycardia): Code(s): I47.10 - Supraventricular tachycardia, unspecified Status: Acute Assessment and Plan: EKG on admission showed SVT with rate of 160. Not felt to be atrial flutter. Cardiology was consulted. Echocardiogram shows EF of 60-65% with mildly increased LV wall thickness and mild aortic stenosis. Metoprolol started. Heart rate well controlled but BP soft now. Back down on narcotics. Place parameters on metoprolol Continue to monitor on telemetry. (4) Chronic thromboembolic disease: Code(s): I74.9 - Embolism and thrombosis of unspecified artery Status: Acute Assessment and Plan: Patient with a history of DVT on chronic Eliquis. His last DVT was in 2002. Eliquis has been resumed. Monitor closely given his anemia. (5) Daily consumption of alcohol: Code(s): Z78.9 - Other specified health status Status: Acute Assessment and Plan: Patient states he drinks 1-2 alcoholic drinks a day. He was educated about the benefits abstaining from alcohol use especially since he has a history of unsteady gait. He voices understanding of this. CIWA score was elevated initially but has much improved now mostly down to 0-1 range Continue thiamine and folate. Stop Librium after today. (6) Gout: Qualifiers: Gout site: unspecified site Gout etiology: unspecified cause Chronicity: chronic Presence of tophus: without tophus Qualified Code(s): M1A.9XX0 - Chronic gout, unspecified, without tophus (tophi) Code(s): M10.9 - Gout, unspecified Status: Acute Assessment and Plan: Stable Plan Code status -full DVT prophylaxis with Eliquis Subjective Date/time seen: 12/09/23 16:10 Interval history: 73yo male with hx of DVT, HTN and gout here for fall. Patient slept well. Right hip pain tolerable. Left leg around the knee sore. Able to stand and pivot to chair. Exam Narrative: AF 98.0 93/51 84 18 99% ra Gen - NARD Chest - CTA bilaterally, nml RR CV - RRR S1/S2. Tele showing no significant dysrhythmias Abd - Soft, NT/ND, Positive BS - Putnam secured and draining clear yellow urine Ext - right hip dressing clean, dry and intact. Trace RLE Psych - Nml mood and affect Skin - Warm and dry Objective Data Vital Signs Vital Signs: Vital Signs - 24 hr 12/08/23 20:49 12/08/23 21:34 12/08/23 20:00 Temperature 97.8 F Pulse Rate 78 79 Pulse Rate [Right Pedal (Dorsalis Pedis) Palpation] 79 Respiratory Rate 18 Blood Pressure 99/54 L Pulse Oximetry 96 Oxygen Delivery
--- NOTE | 2023-12-09 18:50 | PC.NURSE ---
patient straight cathed, tolerated well, 200ml from bladder. pt abdomen soft post catheter.
[2023-12-09] MEDS: PANTOPRAZOLE SODIUM IV 40 MG VIAL IV PUSH (21:00)
[2023-12-10] VITALS (11 sets, daily range): BP systolic 104–134; BP diastolic 61–70; PULSE 63–92; RESP 12–20; TEMP 36.1–37.7; O2SAT 92–100
[2023-12-10] MEDS: HYDROcodone/acetaminophen (*CRX) 7.5-325 MG TABLET 1 TAB PO ×2 (02:30→06:09)
[2023-12-10 04:36] LABS: Hematocrit 29.9 % (42.0-52.0); Hemoglobin 9.4 g/dL (14.0-18.0); Mean Corpuscular HGB Conc 31.4 g/dl (32-36); Mean Corpuscular Hemoglobin 31.2 pg (26-34); Mean Corpuscular Volume 99.3 fl (80-100); Mean Platelet Volume 9.2 fl (7.4-10.4); Platelet Count Result 299 k/mm3 (150-375); Red Blood Count 3.01 M/mm3 (4.6-6.20); White Blood Count 9.7 K/mm3 (4.5-10.0)
[2023-12-10 04:54] LABS: Albumin Level 3.1 g/dL (3.5-5.1); Anion Gap -1 mmol/L (4-12); Blood Urea Nitrogen 13 mg/dL (9-20); Calcium 8.7 mg/dL (8.4-10.2); Carbon Dioxide 31 mmol/L (22-30); Chloride 106 mmol/L (98-107); Estimated CRCL calculation 90 ml/min; Estimated Glomerular Filt Rate > 60; Glucose 111 mg/dL (65-110); Potassium 3.8 mmol/L (3.4-5.0); Sodium 136 mmol/L (137-145)
[2023-12-10] MEDS: allopurinoL 100 MG TABLET 200 MG PO (09:09)
[2023-12-10] MEDS: METOPROLOL TARTRATE 12.5 MG TABLET PO ×2 (09:09→20:41)
[2023-12-10] MEDS: CALCIUM/VITAMIN D 500 MG/5 MCG (200 I.U.) TABLET PO ×2 (09:09→16:11)
[2023-12-10] MEDS: THERAPEUTIC MULTIVITAMINS/MINERALS TAB (*BKC) 1 TABLET PO (09:10)
[2023-12-10] MEDS: FOLIC ACID 1 MG TABLET PO (09:10)
[2023-12-10] MEDS: THIAMINE HCL 100 MG TABLET PO (09:10)
[2023-12-10] MEDS: LORATADINE 10 MG TABLET PO (09:10)
[2023-12-10] MEDS: FAMOTIDINE 20 MG TABLET PO ×2 (09:10→20:41)
[2023-12-10] MEDS: APIXABAN 5 MG TABLET PO ×2 (09:10→20:41)
[2023-12-10] MEDS: SENNA/DOCUSATE SODIUM TABLET 2 TAB PO ×2 (09:10→16:11)
[2023-12-10] MEDS: ACETAMINOPHEN 325 MG TABLET 650 MG PO ×2 (09:10→20:42)
[2023-12-10] MEDS: polyethylene glycoL 3350 17 GM POWD.PACK PO (09:11)
--- NOTE | 2023-12-10 10:19 | PCNWS ---
Weekly nutritional screen. Patient is tolerating current heart healthy diet with adequate intake 50-100. No weight loss reported. No nutritional recommendations at this time.
--- NOTE | 2023-12-10 10:29 | PM.PNORT ---
Progress Note: A&P Assessment and Plan (1) Intertrochanteric fracture of right hip: Code(s): S72.141A - Displaced intertrochanteric fracture of right femur, initial encounter for closed fracture Status: Acute Assessment and Plan: S/P RIGHT HIP FEMORAL SAM. HE IS HAVING SLOW PROGRESS WITH PT. HE IS OTHERWISE STABLE FROM ORTHO STANDPOINT. HE WILL REQUIRE REHAB VS SNF FOR DC PLANNING. HE WILL F/U IN 6 WEEKS WITH MY OFFICE. HE CAN MAINTAIN WBAT STATUS. DVT PROPHYLAXIS X 3 WEEKS. Subjective Subjective Date/Time Seen: 12/10/23 10:29 Review of Systems Review of Systems: POSTOP RIGHT FEMORAL SAM DOING WELL. HE WAS STRAIGHT CATHED TODAY. BLADDER SCAN DONE. WILL ATTEMPT A TRIAL VOIDING. SLOW PROGRESS WITH PT. NO CALF PAIN Exam Extrem: Other: VSS AFEBRILE DRESSING DRY NV INTACT NEG HOMANS SIGN CALF SOFT THIGH SOFT NON TENDER Objective Data Vital Signs Vital Signs: Vital Signs - 24 hr 12/09/23 12:00 12/09/23 13:13 12/09/23 12:30 Temperature 36.7 C Pulse Rate 75 76 Pulse Rate [Right Pedal (Dorsalis Pedis) Palpation] 84 Respiratory Rate 18 Blood Pressure 93/51 L Pulse Oximetry 99 Oxygen Delivery 12/09/23 16:00 12/09/23 16:00 12/09/23 20:00 Temperature 36.8 C 36.6 C Pulse Rate 75 81 78 Pulse Rate [Right Pedal (Dorsalis Pedis) Palpation] Respiratory Rate 20 12 Blood Pressure 95/51 L 98/57 L Pulse Oximetry 94 96 Oxygen Delivery 12/09/23 21:00 12/09/23 20:00 12/09/23 23:47 Temperature 36.6 C Pulse Rate 73 76 Pulse Rate [Right Pedal (Dorsalis Pedis) Palpation] 70 Respiratory Rate 12 Blood Pressure 115/72 Pulse Oximetry 96 Oxygen Delivery 12/10/23 00:00 12/09/23 21:45 12/09/23 20:00 Temperature Pulse Rate 73 Pulse Rate [Right Pedal (Dorsalis Pedis) Palpation] 73 Respiratory Rate Blood Pressure Pulse Oximetry 96 Oxygen Delivery Room Air 12/10/23 00:00 12/10/23 04:00 12/10/23 04:00 Temperature Pulse Rate 84 64 Pulse Rate [Right Pedal (Dorsalis Pedis) Palpation] 64 Respiratory Rate Blood Pressure Pulse Oximetry Oxygen Delivery 12/10/23 04:00 12/10/23 08:02 12/10/23 09:09 Temperature 36.1 C L 36.5 C Pulse Rate 66 67 63 Pulse Rate [Right Pedal (Dorsalis Pedis) Palpation] Respiratory Rate 12 16 Blood Pressure 129/70 126/67 Pulse Oximetry 97 98 Oxygen Delivery Intake/Output Intake/Output: Intake & Output 12/07/23 12/08/23 12/09/23 12/10/23 23:59 23:59 23:59 23:59 Intake Total 3040 590 880 200 Output Total 900 2000 1685 100 Balance 2140 -1410 -805 100 Meds/Results Medications: Active Medications Generic Name Dose Route Start Last Admin Trade Name Freq PRN Reason Stop Dose Admin Acetaminophen 650 mg 12/09/23 16:14 12/10/23 09:10 Acetaminophen 325 Mg Tablet PO 650 mg Q6H PRN Administration Pain Rated 5 or Less Hydrocodone Bitart/Acetaminophen 1 tab 12/09/23 16:14 12/10/23 06:09 Hydrocodone/Acetaminophen (*Crx) 7.5-325 Mg Tablet PO 1 tab Q3H PRN Administration Pain Rated 6 or Greater Allopurinol 200 mg 12/04/23 08:00 12/10/23 09:09 Allopurinol 100 Mg Tablet PO 200 mg DAILY@0800 ERIK Administration Apixaban 5 mg 12/07/23 21:00 12/10/23 09:10 Apixaban 5 Mg Tablet PO 5 mg Q12HR ERIK Administration Calcium Carbonate 500 mg 12/06/23 17:00 12/10/23 09:09 Calcium/Vitamin D 500 Mg/5 Mcg (200 I.U.) Tablet PO 500 mg BID ERIK Administration Famotidine 20 mg 12/06/23 21:00 12/10/23 09:10 Famotidine 20 Mg Tablet PO 20 mg Q12HR ERIK Administration Folic Acid 1 mg 12/04/23 09:00 12/10/23 09:10 Folic Acid 1 Mg Tablet PO 1 mg DAILY ERIK Administration Loratadine 10 mg 12/04/23 09:00 12/10/23 09:10 Loratadine 10 Mg Tablet PO 10 mg QAM ERIK Administration Lorazepam 1 mg 12/03/23 16:45 12/03/23 20:12 Lorazepam (*Crx) 1 Mg Tablet PO 1 mg Q2H PRN Administration C
--- NOTE | 2023-12-10 14:29 | PC.NURSE ---
This patient, Leoncio Murillo Bret Rizzo, was received from [imu ] on 12/10/23 at 1430. Patient/family oriented to unit policies and routines
--- NOTE | 2023-12-10 14:39 | PC.NURSE ---
This patient, Leoncio Queen Jr., was transferred to [3rd Med/Surg ] on 12/10/23 at 1425. Personal belongings sent with patient. Report given to [MORRIS Jerome ]. Appropriate documentation sent with patient. Patient is alert and oriented. Putnam catheter inserted prior to move.
--- NOTE | 2023-12-10 17:53 | PM.IMPN ---
Progress Note: A&P Assessment and Plan (1) Urine retention: Code(s): R33.9 - Retention of urine, unspecified Status: Acute Assessment and Plan: Since Putnam out, patient with poor UOP and evidence of urine retention. Bladder scan was inaccurate so Putnam ordered. UOP over 1L so RN told to clamp Putnam Total UOP was about 1.1L [place] related to bedrest, recent surgery, narcotics. Add Flomax. Voiding trial when more ambulatory (2) Intertrochanteric fracture of right hip: Code(s): S72.141A - Displaced intertrochanteric fracture of right femur, initial encounter for closed fracture Status: Acute Assessment and Plan: Patient presents after a fall resulting acute right hip pain. No head trauma. No loss of consciousness. X-ray shows comminuted, acute intratrochanteric fracture of the proximal femur. Orthopedics was consulted and patient underwent insertion a right femoral savanah placement 12/06/23 The fall probably related to the patient's history of ataxia. No history of CVA. He does have a history of osteoporosis and is on treatment for this and this probably contributed to his fracture Patient appears to have tolerated the procedure well. Continue PT and OT. (3) Normocytic anemia: Code(s): D64.9 - Anemia, unspecified Status: Acute Assessment and Plan: Hemoglobin 11.9 on admission. Hemoglobin drifted downward. EBL was 100 mL. Hemoglobin dropped to 6.7 (12/07) probably related to the fact that he was on Eliquis, recent surgery and from the fracture itself Transfusion ordered. He mentions that he may have B12 deficiency but B12 level was normal in 2021. Hgb climbed to 8-9 range. Follow for stability. Transfuse as needed (4) SVT (supraventricular tachycardia): Code(s): I47.10 - Supraventricular tachycardia, unspecified Status: Acute Assessment and Plan: EKG on admission showed SVT with rate of 160. Not felt to be atrial flutter. Cardiology was consulted. Echocardiogram shows EF of 60-65% with mildly increased LV wall thickness and mild aortic stenosis. Metoprolol started. Heart rate well controlled but BP soft now. We backed down on narcotics. Place parameters on metoprolol Continue to monitor on telemetry. (5) Chronic thromboembolic disease: Code(s): I74.9 - Embolism and thrombosis of unspecified artery Status: Acute Assessment and Plan: Patient with a history of DVT on chronic Eliquis. His last DVT was in 2002. Eliquis has been resumed. Monitor closely given his anemia. (6) Daily consumption of alcohol: Code(s): Z78.9 - Other specified health status Status: Acute Assessment and Plan: Patient states he drinks 1-2 alcoholic drinks a day. He was educated about the benefits abstaining from alcohol use especially since he has a history of unsteady gait. He voices understanding of this. CIWA score was elevated initially but has much improved now mostly down to 0-1 range Continue thiamine and folate. Librium stopped now (7) Gout: Qualifiers: Chronicity: chronic Gout etiology: unspecified cause Gout site: unspecified site Presence of tophus: without tophus Qualified Code(s): M1A.9XX0 - Chronic gout, unspecified, without tophus (tophi) Code(s): M10.9 - Gout, unspecified Status: Acute Assessment and Plan: Stable Plan Code status -full DVT prophylaxis with Eliquis Subjective Date/time seen: 12/10/23 17:53 Interval history: 73yo male with hx of DVT, HTN and gout here for fall. Patient slept well. No CP or SOB. Decreased appetite. Having abd pain and poor UOP since Putnam removed. Exam Narrative: AF 98.9 118/61 82 18 100% ra Gen - NARD Chest - CTA bilaterally, nml RR CV - RRR S1/S2. Tele showing no significant dysrhythmias Abd - Suprapubic area firm and distended with pain. Ext - right hip dressing with scant serosang staining. Trace RLE Psyc
[2023-12-10] MEDS: TAMSULOSIN HCL 0.4 MG CAPSULE PO (20:41)
[2023-12-10] MEDS: PANTOPRAZOLE SODIUM IV 40 MG VIAL IV PUSH (20:42)
[2023-12-11] VITALS (9 sets, daily range): BP systolic 92–125; BP diastolic 50–82; PULSE 62–90; RESP 16; TEMP 36.4–37.7; O2SAT 93–98
[2023-12-11] MEDS: diazePAM INJ (*CRX) 10 MG/2 ML SYRINGE 2.5 MG IV PUSH (06:17)
[2023-12-11] MEDS: HYDROcodone/acetaminophen (*CRX) 5-325 MG TABLET 1 TAB PO ×3 (06:17→19:30)
[2023-12-11 07:04] LABS: Hematocrit 30.2 % (42.0-52.0); Hemoglobin 9.4 g/dL (14.0-18.0); Mean Corpuscular HGB Conc 31.1 g/dl (32-36); Mean Corpuscular Hemoglobin 31.2 pg (26-34); Mean Corpuscular Volume 100.3 fl (80-100); Mean Platelet Volume 9.1 fl (7.4-10.4); Platelet Count Result 336 k/mm3 (150-375); Red Blood Count 3.01 M/mm3 (4.6-6.20); Red Cell Distribution Width 14.1 % (11.5-14.5); White Blood Count 8.4 K/mm3 (4.5-10.0)
[2023-12-11 07:19] LABS: Anion Gap 3 mmol/L (4-12); Blood Urea Nitrogen 17 mg/dL (9-20); Calcium 8.9 mg/dL (8.4-10.2); Carbon Dioxide 31 mmol/L (22-30); Chloride 105 mmol/L (98-107); Estimated CRCL calculation 78 ml/min; Estimated Glomerular Filt Rate > 60; Glucose 104 mg/dL (65-110); Potassium 3.7 mmol/L (3.4-5.0); Sodium 139 mmol/L (137-145)
[2023-12-11] MEDS: CALCIUM/VITAMIN D 500 MG/5 MCG (200 I.U.) TABLET PO ×2 (08:33→17:05)
[2023-12-11] MEDS: polyethylene glycoL 3350 17 GM POWD.PACK PO (08:33)
[2023-12-11] MEDS: METOPROLOL TARTRATE 12.5 MG TABLET PO ×2 (08:33→20:33)
[2023-12-11] MEDS: FOLIC ACID 1 MG TABLET PO (08:33)
[2023-12-11] MEDS: THIAMINE HCL 100 MG TABLET PO (08:34)
[2023-12-11] MEDS: FAMOTIDINE 20 MG TABLET PO ×2 (08:34→20:33)
[2023-12-11] MEDS: LORATADINE 10 MG TABLET PO (08:34)
[2023-12-11] MEDS: THERAPEUTIC MULTIVITAMINS/MINERALS TAB (*BKC) 1 TABLET PO (08:34)
[2023-12-11] MEDS: allopurinoL 100 MG TABLET 200 MG PO (08:35)
[2023-12-11] MEDS: APIXABAN 5 MG TABLET PO ×2 (08:35→20:33)
[2023-12-11] MEDS: SENNA/DOCUSATE SODIUM TABLET 2 TAB PO ×2 (08:35→17:05)
[2023-12-11] MEDS: PANTOPRAZOLE SODIUM IV 40 MG VIAL IV PUSH ×2 (08:39→20:34)
--- NOTE | 2023-12-11 15:38 | PC.NURSE ---
Reached out to Provider regarding changes with the pt and left vm asking provider to give me a call back.
--- NOTE | 2023-12-11 15:50 | PM.IMPN ---
Progress Note: A&P Assessment and Plan (1) Urine retention: Code(s): R33.9 - Retention of urine, unspecified Status: Acute Assessment and Plan: Since Putnam out, patient had poor UOP and evidence of urine retention. Bladder scan was inaccurate so Putnam ordered. UOP of about 1.1L [place] related to bedrest, recent surgery, narcotics. Flomax added. Voiding trial when more ambulatory (2) Intertrochanteric fracture of right hip: Code(s): S72.141A - Displaced intertrochanteric fracture of right femur, initial encounter for closed fracture Status: Acute Assessment and Plan: Patient presents after a fall resulting acute right hip pain. No head trauma. No loss of consciousness. X-ray shows comminuted, acute intratrochanteric fracture of the proximal femur. Orthopedics was consulted and patient underwent insertion a right femoral savanah placement 12/06/23 The fall probably related to the patient's history of ataxia. No history of CVA. He does have a history of osteoporosis and is on treatment for this and this probably contributed to his fracture Patient appears to have tolerated the procedure well. Continue PT and OT. (3) Normocytic anemia: Code(s): D64.9 - Anemia, unspecified Status: Acute Assessment and Plan: Hemoglobin 11.9 on admission. Hemoglobin drifted downward. EBL was 100 mL. Hemoglobin dropped to 6.7 (12/07) probably related to the fact that he was on Eliquis, recent surgery and from the fracture itself Transfusion ordered. He mentions that he may have B12 deficiency but B12 level was normal in 2021. Hgb stable in the 8-9 range. Follow (4) SVT (supraventricular tachycardia): Code(s): I47.10 - Supraventricular tachycardia, unspecified Status: Acute Assessment and Plan: EKG on admission showed SVT with rate of 160. Not felt to be atrial flutter. Cardiology was consulted. Echocardiogram shows EF of 60-65% with mildly increased LV wall thickness and mild aortic stenosis. Metoprolol started. Heart rate well controlled We backed down on narcotics. Place parameters on metoprolol Okay to stop telemetry. (5) Chronic thromboembolic disease: Code(s): I74.9 - Embolism and thrombosis of unspecified artery Status: Acute Assessment and Plan: Patient with a history of DVT on chronic Eliquis. His last DVT was in 2002. Eliquis has been resumed. Monitor closely given his anemia. (6) Daily consumption of alcohol: Code(s): Z78.9 - Other specified health status Status: Acute Assessment and Plan: Patient states he drinks 1-2 alcoholic drinks a day. He was educated about the benefits abstaining from alcohol use especially since he has a history of unsteady gait. He voices understanding of this. CIWA score was elevated initially but has much improved now mostly down to 0-1 range Continue thiamine and folate. More tremulous but felt related to anxiety and not withdrawal; add Vel (7) Gout: Qualifiers: Gout site: unspecified site Gout etiology: unspecified cause Chronicity: chronic Presence of tophus: without tophus Qualified Code(s): M1A.9XX0 - Chronic gout, unspecified, without tophus (tophi) Code(s): M10.9 - Gout, unspecified Status: Acute Assessment and Plan: Stable Plan Code status -full DVT prophylaxis with Eliquis Subjective Date/time seen: 12/11/23 15:50 Interval history: 73yo male with hx of DVT, HTN and gout here for fall. Patient with increased hip pain today. Having BMs now. Exam Narrative: AF 97.6 118/82 74 16 98% ra Gen - NARD Chest - CTA bilaterally, nml RR CV - RRR S1/S2 . Tele showing no significant dysrhythmias Abd - soft, NT/ND - Putnam secured draining clear yellow urine Ext - right hip dressing clean, dry and intact. Trace RLE Psych - Nml mood and affect with mild tremor noted. Skin - Warm and dry (called later by Nitin
[2023-12-11] MEDS: busPIRone HCL 2.5 MG TABLET PO ×2 (17:05→20:33)
[2023-12-11] MEDS: TAMSULOSIN HCL 0.4 MG CAPSULE PO (20:33)
[2023-12-12] VITALS (7 sets, daily range): BP systolic 97–127; BP diastolic 47–69; PULSE 65–84; RESP 14–18; TEMP 36.1–37.6; O2SAT 96–100
[2023-12-12] MEDS: HYDROcodone/acetaminophen (*CRX) 5-325 MG TABLET 1 TAB PO ×3 (01:30→18:54)
[2023-12-12] MEDS: diazePAM INJ (*CRX) 10 MG/2 ML SYRINGE 2.5 MG IV PUSH (05:29)
[2023-12-12] MEDS: THERAPEUTIC MULTIVITAMINS/MINERALS TAB (*BKC) 1 TABLET PO (08:01)
[2023-12-12] MEDS: SENNA/DOCUSATE SODIUM TABLET 2 TAB PO ×2 (08:01→18:24)
[2023-12-12] MEDS: polyethylene glycoL 3350 17 GM POWD.PACK PO (08:01)
[2023-12-12] MEDS: PANTOPRAZOLE SODIUM IV 40 MG VIAL IV PUSH (08:01)
[2023-12-12] MEDS: THIAMINE HCL 100 MG TABLET PO (08:02)
[2023-12-12] MEDS: LORATADINE 10 MG TABLET PO (08:02)
[2023-12-12] MEDS: METOPROLOL TARTRATE 12.5 MG TABLET PO ×2 (08:02→21:19)
[2023-12-12] MEDS: APIXABAN 5 MG TABLET PO ×2 (08:02→21:19)
[2023-12-12] MEDS: FAMOTIDINE 20 MG TABLET PO ×2 (08:02→21:19)
[2023-12-12] MEDS: FOLIC ACID 1 MG TABLET PO (08:02)
[2023-12-12] MEDS: CALCIUM/VITAMIN D 500 MG/5 MCG (200 I.U.) TABLET PO ×2 (08:02→18:24)
[2023-12-12] MEDS: busPIRone HCL 2.5 MG TABLET PO ×2 (08:02→21:19)
[2023-12-12] MEDS: allopurinoL 100 MG TABLET 200 MG PO (08:02)
[2023-12-12] MEDS: ACETAMINOPHEN 325 MG TABLET 650 MG PO (10:32)
[2023-12-12 11:51] LABS: IFOB Positive Control Positive; Immunochemical Fecal Occult Bl Negative (N)
--- NOTE | 2023-12-12 18:22 | PM.IMPN ---
Progress Note: A&P Assessment and Plan (1) Urine retention: Code(s): R33.9 - Retention of urine, unspecified Status: Acute Assessment and Plan: Since Putnam out, patient had poor UOP and evidence of urine retention. Bladder scan was inaccurate so Putnam ordered. UOP of about 1.1L [place] related to bedrest, recent surgery, narcotics. Flomax added. Voiding trial when more ambulatory (2) Intertrochanteric fracture of right hip: Code(s): S72.141A - Displaced intertrochanteric fracture of right femur, initial encounter for closed fracture Status: Acute Assessment and Plan: Patient presents after a fall resulting acute right hip pain. No head trauma. No loss of consciousness. X-ray shows comminuted, acute intratrochanteric fracture of the proximal femur. Orthopedics was consulted and patient underwent insertion a right femoral savanah placement 12/06/23 The fall probably related to the patient's history of ataxia. No history of CVA. He does have a history of osteoporosis and is on treatment for this and this probably contributed to his fracture Patient appears to have tolerated the procedure well. Continue PT and OT. Check left hip xray to exclude occult fx (3) Normocytic anemia: Code(s): D64.9 - Anemia, unspecified Status: Acute Assessment and Plan: Hemoglobin 11.9 on admission. Hemoglobin drifted downward. EBL was 100 mL. Hemoglobin dropped to 6.7 (12/07) probably related to the fact that he was on Eliquis, recent surgery and from the fracture itself Transfusion ordered. He mentions that he may have B12 deficiency but B12 level was normal in 2021. Hgb stable in the 8-9 range. Stool guaiac negative Follow (4) SVT (supraventricular tachycardia): Code(s): I47.10 - Supraventricular tachycardia, unspecified Status: Acute Assessment and Plan: EKG on admission showed SVT with rate of 160. Not felt to be atrial flutter. Cardiology was consulted. Echocardiogram shows EF of 60-65% with mildly increased LV wall thickness and mild aortic stenosis. Metoprolol started. Heart rate well controlled Follow (5) Chronic thromboembolic disease: Code(s): I74.9 - Embolism and thrombosis of unspecified artery Status: Acute Assessment and Plan: Patient with a history of DVT on chronic Eliquis. His last DVT was in 2002. Eliquis has been resumed. Monitor closely given his anemia. (6) Daily consumption of alcohol: Code(s): Z78.9 - Other specified health status Status: Acute Assessment and Plan: Patient states he drinks 1-2 alcoholic drinks a day. He was educated about the benefits abstaining from alcohol use especially since he has a history of unsteady gait. He voices understanding of this. CIWA score was elevated initially but has much improved now mostly down to 0-1 range Continue thiamine and folate. More tremulous but felt related to anxiety so Vel added (7) Gout: Qualifiers: Gout site: unspecified site Gout etiology: unspecified cause Chronicity: chronic Presence of tophus: without tophus Qualified Code(s): M1A.9XX0 - Chronic gout, unspecified, without tophus (tophi) Code(s): M10.9 - Gout, unspecified Status: Acute Assessment and Plan: Stable Plan Code status -full DVT prophylaxis with Eliquis Subjective Date/time seen: 12/12/23 18:22 Interval history: 73yo male with hx of DVT, HTN and gout here for fall. Slept well. No CP or SOB. Right hip pain mild. Still having difficulty bearing weight. Complains of left hip mild pain. Exam Narrative: Tm 99.9 98.1 107/47 67 14 96% ra Gen - NARD Chest - CTA bilaterally, nml RR CV - RRR S1/S2 Abd - soft, NT/ND - Putnam secured draining clear yellow urine Ext - right hip dressing dry and intact with slight serous staning. Trace RLE. Left hip ROM normal without pain Psych - Nml mood and affect Skin - Warm
[2023-12-12] MEDS: TAMSULOSIN HCL 0.4 MG CAPSULE PO (21:19)
[2023-12-13] VITALS (8 sets, daily range): BP systolic 100–125; BP diastolic 46–64; PULSE 66–89; RESP 14–20; TEMP 36.7–37.4; O2SAT 97–100
[2023-12-13] MEDS: HYDROcodone/acetaminophen (*CRX) 5-325 MG TABLET 1 TAB PO ×2 (05:07→20:16)
[2023-12-13 07:24] LABS: Basophils Percent Auto 0.5 % (0.2-1.2); Eosinophils Absolute Auto 0.3 K/mm3 (0-0.3); Eosinophils Percent Auto 4.4 % (0-4.4); Hematocrit 25.2 % (42.0-52.0); Hemoglobin 8.1 g/dL (14.0-18.0); Immature Granulocyte Absolute 0.03 K/mm3 (0.00-0.031); Immature Granulocyte Percent A 0.5 % (0-0.5); Lymphocytes Absolute Auto 1.79 K/mm3 (0.9-3.2); Mean Corpuscular HGB Conc 32.1 g/dl (32-36); Mean Corpuscular Hemoglobin 31.6 pg (26-34); Mean Corpuscular Volume 98.4 fl (80-100); Mean Platelet Volume 8.7 fl (7.4-10.4); Monocytes Absolute Auto 0.7 K/mm3 (0.1-0.6); Monocytes Percent Auto 10.9 % (2.6-8.5); Neutrophils Absolute Auto 3.8 K/mm3 (1.3-6.7); Neutrophils Percent Auto 56.7 % (45.5-73.1); Platelet Count Result 343 k/mm3 (150-375); Red Blood Count 2.56 M/mm3 (4.6-6.20); Red Cell Distribution Width 13.9 % (11.5-14.5); White Blood Count 6.6 K/mm3 (4.5-10.0)
[2023-12-13 07:31] LABS: Albumin Level 2.7 g/dL (3.5-5.1); Anion Gap 1 mmol/L (4-12); Blood Urea Nitrogen 16 mg/dL (9-20); Calcium 8.6 mg/dL (8.4-10.2); Carbon Dioxide 31 mmol/L (22-30); Chloride 105 mmol/L (98-107); Estimated CRCL calculation 90 ml/min; Estimated Glomerular Filt Rate > 60; Glucose 98 mg/dL (65-110); Magnesium 1.7 mg/dL (1.6-2.3); Phosphorus 4.3 mg/dL (2.5-4.5); Potassium 3.7 mmol/L (3.4-5.0); Sodium 137 mmol/L (137-145)
[2023-12-13] MEDS: FAMOTIDINE 20 MG TABLET PO ×2 (09:53→20:16)
[2023-12-13] MEDS: PANTOPRAZOLE 40 MG TABLET PO (09:53)
[2023-12-13] MEDS: APIXABAN 5 MG TABLET PO ×2 (09:53→20:16)
[2023-12-13] MEDS: FOLIC ACID 1 MG TABLET PO (09:53)
[2023-12-13] MEDS: busPIRone HCL 2.5 MG TABLET PO ×2 (09:53→20:15)
[2023-12-13] MEDS: polyethylene glycoL 3350 17 GM POWD.PACK PO (09:54)
[2023-12-13] MEDS: allopurinoL 100 MG TABLET 200 MG PO (09:54)
[2023-12-13] MEDS: METOPROLOL TARTRATE 12.5 MG TABLET PO ×2 (09:54→20:15)
[2023-12-13] MEDS: LORATADINE 10 MG TABLET PO (09:54)
[2023-12-13] MEDS: CALCIUM/VITAMIN D 500 MG/5 MCG (200 I.U.) TABLET PO ×2 (09:54→17:18)
[2023-12-13] MEDS: THIAMINE HCL 100 MG TABLET PO (09:54)
[2023-12-13] MEDS: THERAPEUTIC MULTIVITAMINS/MINERALS TAB (*BKC) 1 TABLET PO (09:54)
[2023-12-13] MEDS: SENNA/DOCUSATE SODIUM TABLET 2 TAB PO (09:54)
[2023-12-13 10:50] LABS: Hematocrit 27.8 % (42.0-52.0); Hemoglobin 8.7 g/dL (14.0-18.0)
--- NOTE | 2023-12-13 18:46 | PM.IMPN ---
Progress Note: A&P Assessment and Plan (1) Urine retention: Code(s): R33.9 - Retention of urine, unspecified Status: Acute Assessment and Plan: Since Putnam out, patient had poor UOP and evidence of urine retention. Bladder scan was inaccurate so Putnam ordered. UOP of about 1.1L [place] related to bedrest, recent surgery, narcotics. Flomax added. Voiding trial when more ambulatory (2) Intertrochanteric fracture of right hip: Code(s): S72.141A - Displaced intertrochanteric fracture of right femur, initial encounter for closed fracture Status: Acute Assessment and Plan: Patient presents after a fall resulting acute right hip pain. No head trauma. No loss of consciousness. X-ray shows comminuted, acute intratrochanteric fracture of the proximal femur. Orthopedics was consulted and patient underwent insertion a right femoral savanah placement 12/06/23 The fall probably related to the patient's history of ataxia. No history of CVA. He does have a history of osteoporosis and is on treatment for this and this probably contributed to his fracture Patient appears to have tolerated the procedure well. He had been complaining of left hip pain but xray showing OA but no acute findings Continue PT and OT. lasix x 2 doses to improve fluid status (3) Normocytic anemia: Code(s): D64.9 - Anemia, unspecified Status: Acute Assessment and Plan: Hemoglobin 11.9 on admission. Hemoglobin drifted downward. EBL was 100 mL. Hemoglobin dropped to 6.7 (12/07) probably related to the fact that he was on Eliquis, recent surgery and from the fracture itself Transfusion ordered. He mentions that he may have B12 deficiency but B12 level was normal in 2021. Hgb stable in the 8-9 range. Stool guaiac negative Follow (4) SVT (supraventricular tachycardia): Code(s): I47.10 - Supraventricular tachycardia, unspecified Status: Acute Assessment and Plan: EKG on admission showed SVT with rate of 160. Not felt to be atrial flutter. Cardiology was consulted. Echocardiogram shows EF of 60-65% with mildly increased LV wall thickness and mild aortic stenosis. Metoprolol started. Heart rate well controlled Follow (5) Chronic thromboembolic disease: Code(s): I74.9 - Embolism and thrombosis of unspecified artery Status: Acute Assessment and Plan: Patient with a history of DVT on chronic Eliquis. His last DVT was in 2002. Eliquis has been resumed. Monitor closely given his anemia. (6) Daily consumption of alcohol: Code(s): Z78.9 - Other specified health status Status: Acute Assessment and Plan: Patient states he drinks 1-2 alcoholic drinks a day. He was educated about the benefits abstaining from alcohol use especially since he has a history of unsteady gait. He voices understanding of this. CIWA score was elevated initially but has much improved now mostly down to 0-1 range Continue thiamine and folate. More tremulous but felt related to anxiety so Buspar added and mostly has been stable (7) Gout: Qualifiers: Gout site: unspecified site Gout etiology: unspecified cause Chronicity: chronic Presence of tophus: without tophus Qualified Code(s): M1A.9XX0 - Chronic gout, unspecified, without tophus (tophi) Code(s): M10.9 - Gout, unspecified Status: Acute Assessment and Plan: Stable Plan Code status -full DVT prophylaxis with Eliquis Subjective Date/time seen: 12/13/23 18:46 Interval history: 73yo male with hx of DVT, HTN and gout here for fall. No problems overnight. Up with walker today. No CP or SOB Exam Narrative: AF 98.5 125/64 79 18 100% ra Gen - NARD Chest - CTA bilaterally, nml RR CV - RRR S1/S2 Abd - soft, NT/ND - Putnam secured draining clear yellow urine Ext - Trace bilateral edema Psych - Nml mood and affect Skin - Warm and dry Objective Data Vital Sign
[2023-12-13] MEDS: TAMSULOSIN HCL 0.4 MG CAPSULE PO (20:15)
[2023-12-13] MEDS: diazePAM INJ (*CRX) 10 MG/2 ML SYRINGE 2.5 MG IV PUSH (20:15)
[2023-12-14] VITALS: BP 96/61; PULSE 59; PULSE 68; RESP 16; TEMP 36.3; O2SAT 98
[2023-12-14 04:00] VITALS: BP 99/51; PULSE 67; PULSE 68; RESP 18; TEMP 36.9; O2SAT 99
[2023-12-14] MEDS: HYDROcodone/acetaminophen (*CRX) 5-325 MG TABLET 1 TAB PO (04:41)
[2023-12-14 08:00] VITALS: BP 92/60; PULSE 69; RESP 16; TEMP 36.8; O2SAT 98
[2023-12-14] MEDS: CALCIUM/VITAMIN D 500 MG/5 MCG (200 I.U.) TABLET PO ×2 (08:47→16:45)
[2023-12-14] MEDS: polyethylene glycoL 3350 17 GM POWD.PACK PO (08:47)
[2023-12-14] MEDS: allopurinoL 100 MG TABLET 200 MG PO (08:48)
[2023-12-14] MEDS: THIAMINE HCL 100 MG TABLET PO (08:48)
[2023-12-14] MEDS: FOLIC ACID 1 MG TABLET PO (08:48)
[2023-12-14] MEDS: LORATADINE 10 MG TABLET PO (08:48)
[2023-12-14] MEDS: APIXABAN 5 MG TABLET PO (08:48)
[2023-12-14] MEDS: FAMOTIDINE 20 MG TABLET PO (08:48)
[2023-12-14] MEDS: THERAPEUTIC MULTIVITAMINS/MINERALS TAB (*BKC) 1 TABLET PO (08:48)
[2023-12-14] MEDS: busPIRone HCL 2.5 MG TABLET PO (08:48)
[2023-12-14] MEDS: PANTOPRAZOLE 40 MG TABLET PO (08:48)
[2023-12-14] MEDS: SENNA/DOCUSATE SODIUM TABLET 2 TAB PO (08:48)
--- NOTE | 2023-12-14 10:41 | PM.DS ---
DS: Admitting Diagnosis Discharge Date 12/14/23 Admitting Diagnosis Fall DS: Discharge Diagnosis Discharge Diagnosis (1) Urine retention: Code(s): R33.9 - Retention of urine, unspecified Status: Acute (2) Intertrochanteric fracture of right hip: Code(s): S72.141A - Displaced intertrochanteric fracture of right femur, initial encounter for closed fracture Status: Acute (3) Normocytic anemia: Code(s): D64.9 - Anemia, unspecified Status: Acute (4) SVT (supraventricular tachycardia): Code(s): I47.10 - Supraventricular tachycardia, unspecified Status: Acute (5) Chronic thromboembolic disease: Code(s): I74.9 - Embolism and thrombosis of unspecified artery Status: Acute (6) Daily consumption of alcohol: Code(s): Z78.9 - Other specified health status Status: Acute (7) Gout: Qualifiers: Chronicity: chronic Gout etiology: unspecified cause Gout site: unspecified site Presence of tophus: without tophus Qualified Code(s): M1A.9XX0 - Chronic gout, unspecified, without tophus (tophi) Code(s): M10.9 - Gout, unspecified Status: Acute DS: Summary Hospital Course Reason for hospitalization: 73yo male with hx of DVT, HTN and gout here for fall. Please see H&p for details Hospital Course: Patient presents after a fall that resulted in acute right hip pain.? No head trauma.? No loss of consciousness. X-ray showed comminuted, acute intratrochanteric fracture of the proximal femur. Orthopedics was consulted and patient underwent insertion a right femoral savanah placement 12/06/23. The fall probably related to the patient's history of ataxia.? No history of CVA.?He does have a history of osteoporosis and is on treatment for this and this probably contributed to his fracture. Patient tolerated the procedure well. He was complaining of left hip pain but xray showing OA but no acute findings. He worked with PT and OT.? Since Putnam out, patient had poor UOP and evidence of urine retention. Bladder scan was inaccurate so Putnam ordered. UOP of about 1.1L removed. Christiana related to bedrest, recent surgery, narcotics. Flomax added. Voiding trial when more ambulatory. Hemoglobin 11.9 on admission.? Hemoglobin drifted downward. EBL was 100 mL. Hemoglobin dropped to 6.7 (12/07) probably related to the fact that he was on Eliquis, recent surgery and from the fracture itself. Transfusion ordered. He mentions that he may have B12 deficiency but B12 level was normal in 2021. Hgb stable after the transfusion in the 8-9 range. Stool guaiac negative. EKG on admission showed SVT with rate of 160.? Not felt to be atrial flutter. Cardiology was consulted. Echo showed EF of 60-65% with mildly increased LV wall thickness and mild aortic stenosis. Metoprolol started. Heart rate remained well controlled. Patient states he drinks 1-2 alcoholic drinks a day.? He was educated about the benefits abstaining from alcohol use especially since he has a history of unsteady gait.? He voices understanding of this. CIWA score was elevated initially but has much improved now mostly down to 0-1 range. Treated with thiamine and folate.? He was more tremulous but felt related to anxiety so Buspar added and mostly has been stable since. BP was soft at times but not symptomatic and no lightheadedness with standing. He overall did well and was able to be discharged on 12/14/23 Status at Discharge Cognitive/behavioral status at discharge: stable Time Spent with Patient Time attestation: Total time spent providing and/or coordinating discharge services: 35 minutes Time spent: Greater than 30 minutes Exam Narrative: AF 98.2 96/60 69 16 100% ra Gen - NARD Chest - CTA bilaterally, nml RR CV - RRR S1/S2 Abd - soft, NT/ND - Putnam secured draining clear yellow urine Ext - Trace bilateral edema Psych - Nml mood and affect Skin - Warm and dry DS: Data Data Completed and Pending
[2023-12-14 12:00] VITALS: BP 96/60; PULSE 69; RESP 16; TEMP 36.8; O2SAT 100
--- NOTE | 2023-12-14 13:10 | PM.PNORT ---
Progress Note: A&P Assessment and Plan (1) Intertrochanteric fracture of right hip: Qualifiers: Encounter type: initial encounter Fracture type: closed Fracture alignment: displaced Qualified Code(s): S72.141A - Displaced intertrochanteric fracture of right femur, initial encounter for closed fracture Code(s): S72.141A - Displaced intertrochanteric fracture of right femur, initial encounter for closed fracture Status: Acute Assessment and Plan: POD #8 : INSERTION FEMORAL SAM RIGHT HIP Continue PT/OT. WBAT. Walker. HIGH FALL RISK. Continue pain control. Ice Hip. Protect skin. DVT prophylaxis with resumed Eliquis. SCDs. Incentive Spirometry Use reviewed. Monitor Dressing. Change prior to discharge. Bowel Regimen. Dispo: SNF pending progress with PT/OT and insurance authorization. (2) Fracture of hip, right, closed: Qualifiers: Encounter type: initial encounter Qualified Code(s): S72.001A - Fracture of unspecified part of neck of right femur, initial encounter for closed fracture Code(s): S72.001A - Fracture of unspecified part of neck of right femur, initial encounter for closed fracture Status: Acute Time Spent With Patient Time: Reviewed history, exam, radiographs and current labs with attending MD and covering surgeon, Dr. Rivera, who agrees with current plan as indicated above. No further recommendations from Dr. Rivera at this time. Subjective Subjective Date/Time Seen: 12/14/23 13:10 Post Op day: 8 Interval history: POD #8: INSERTION FEMORAL SAM RIGHT HIP Patient doing well. Up on commode. No new concerns. Pain well control. Awaiting placement. Review of Systems Review of Systems: All systems reviewed & are unremarkable except as noted in HPI and below Exam Const: General: comfortable and no acute distress Resp: Effort & Inspection: normal respiratory effort Cardio: Rate: regular rate Rhythm: regular rhythm GI: GI Palp: Yes Soft to palpation Skin: General skin exam: normal color Neuro: Speech: normal speech Extrem: Right lower extremity: normal to inspection, hip/thigh Details: tenderness Location: of the hip Location: laterally and abnormal ROM Details: pain with active ROM during and pain with passive ROM during, knee Details: normal to inspection and normal ROM, lower leg Details: normal to inspection, ankle Details: normal to inspection and normal ROM and foot Details: normal capillary refill, no edema and vascular exam Details: dorsalis pedis pulse present Objective Data Vital Signs Vital Signs: Vital Signs - 24 hr 12/13/23 16:00 12/13/23 16:00 12/13/23 20:00 Temperature 36.9 C 37.4 C Pulse Rate 85 76 Pulse Rate [Bilateral Radial Palpation] 79 Pulse Rate [Monitor] 79 Pulse Rate [Right Pedal (Dorsalis Pedis) Palpation] 79 Respiratory Rate 18 18 Blood Pressure 125/64 104/53 L Pulse Oximetry 100 99 Oxygen Delivery 12/13/23 20:00 12/14/23 00:00 12/14/23 04:00 Temperature 36.3 C L 36.9 C Pulse Rate 59 L 67 Pulse Rate [Bilateral Radial Palpation] Pulse Rate [Monitor] Pulse Rate [Right Pedal (Dorsalis Pedis) Palpation] 72 Respiratory Rate 16 18 Blood Pressure 96/61 L 99/51 L Pulse Oximetry 98 99 Oxygen Delivery 12/14/23 00:00 12/14/23 04:00 12/14/23 08:00 Temperature 36.8 C Pulse Rate 69 Pulse Rate [Bilateral Radial Palpation] Pulse Rate [Monitor] Pulse Rate [Right Pedal (Dorsalis Pedis) Palpation] 68 68 Respiratory Rate 16 Blood Pressure 92/60 L Pulse Oximetry 98 Oxygen Delivery 12/14/23 12:00 12/14/23 08:50 Temperature 36.8 C Pulse Rate 69 Pulse Rate [Bilateral Radial Palpation] Pulse Rate [Monitor] Pulse Rate [Right Pedal (Dorsalis Pedis) Palpation] Respiratory Rate 16 Blood Pressure 96/60 L Pulse Oximetry 100 Oxygen Delivery Room Air Intake/Output Intake/Output: Intake & Output 12/11/23 12/12/23 12/13/23 12/14/23 23:59 23:5
[2023-12-14 15:26] LABS: SARS-CoV-2 RNA PCR Negative (Negative)
[2023-12-14 16:00] VITALS: BP 97/66; PULSE 73; RESP 20; TEMP 36.8; O2SAT 99
[2023-12-14] MEDS: ACETAMINOPHEN 325 MG TABLET 650 MG PO (16:06)
== END 2023-12-14 17:25 | DRG 481 ==
LOC: ANHED 14:37 → ANH3MEDSUR 16:23 → ANHIMU 12-04 21:37 → ANH3MEDSUR 12-10 14:37
PROVIDERS: Internal Medicine; Internal Medicine Cardiovascular Disease; Orthopaedic Surgery; Physician Assistant; Admitting Provider General Practice; Emergency Provider Emergency Medicine; PCP Internal Medicine; Visit Provider Internal Medicine
PROC: 0QS634Z Reposition Right Upper Femur with Internal Fixation Device, Percutaneous Approach (ICD-10-PCS; CPT 27245; principal; 2023-12-06 15:00)
DX: S72.141A Displaced intertrochanteric fracture of right femur, initial encounter for closed fracture (principal); I47.10 Supraventricular tachycardia, unspecified; M10.9 Gout, unspecified; D51.9 Vitamin B12 deficiency anemia, unspecified; Z91.198 Patient's noncompliance with other medical treatment and regimen for other reason; D64.89 Other specified anemias; I10 Essential (primary) hypertension; M81.0 Age-related osteoporosis without current pathological fracture; K44.9 Diaphragmatic hernia without obstruction or gangrene; I35.0 Nonrheumatic aortic (valve) stenosis; R33.8 Other retention of urine; F17.210 Nicotine dependence, cigarettes, uncomplicated; F41.9 Anxiety disorder, unspecified; W18.30XA Fall on same level, unspecified, initial encounter; F10.10 Alcohol abuse, uncomplicated; Z11.52 Encounter for screening for COVID-19; Z86.718 Personal history of other venous thrombosis and embolism; Z79.01 Long term (current) use of anticoagulants; Z96.1 Presence of intraocular lens; Z98.49 Cataract extraction status, unspecified eye; Z90.49 Acquired absence of other specified parts of digestive tract
CPT/HCPCS: 36415; 36430; 71045; 73502; 73552; 80048; 80053; 80069; 82274; 83735; 84436; 84443; 85014; 85018; 85025; 85027; 85610; 85730; 86850; 86900; 86901; 86923; 87635; 93005; 96361; 96374; 96376; 97110; 97116; 97161; 97166; 97530; 97535; 99199; 99285; A9270; C1713; C8929; C9113; G0378; J0690; J1100; J1160; J1170; J2270; J2405; J2704; J3010; J3360; J3370; J3475; J7030; J7040; J7050; J7120; P9016; Q9957

== ENCOUNTER 2024-01-27 12:45 | Outpatient (RCR) | payer MEDICARE, SELFPAY ==
[2024-01-27 13:49] LABS: Appearance Urine Turbid (Clear); Bacteria Urine 4+ /hpf; Bilirubin Urine Negative (Negative); Blood Urine 1+ (Negative); Color Urine Yellow (Yellow); Glucose Urine UA Negative (Negative); Ketones Urine Negative (Negative); Leukocyte Esterase Ur 3+ LEU/UL (Negative); Nitrate Urine Negative (Negative); Protein Urine 2+ mg/dL (Negative); Specific Grav Ur 1.024 (1.001-1.035); Squamous Epithelial Cell Urine None Seen /hpf (Few); WBC Urine >100 /hpf (0-3)
[2024-01-27 14:03] LABS: Add Urine Microscopic? YES
== END 2024-04-26 23:59 | disposition home or self-care (01) ==
LOC: HOME HLTH 12:45
PROVIDERS: PCP Internal Medicine; Visit Provider Internal Medicine
DX: N39.0 Urinary tract infection, site not specified (principal)
CPT/HCPCS: 81001; 87077; 87086; 87088; 87186

== ENCOUNTER 2024-05-12 10:30 | Outpatient (RCR) | payer MEDICARE, SELFPAY ==
--- NOTE | 2024-03-30 15:16 | OPREHPOC ---
Outpatient Therapy Plan of Care This is a Multidisciplinary Plan of Care that may contain components documented by all disciplines (PT, OT, and ST.) PT Problem 1 PT Problem #1 Knowledge Deficit PT Goal 1 Goal [place] with HEP Target Visit 4 PT Problem 2 PT Problem #2 Impaired Gait PT Goal 1 Goal Patient will demonstrate ability to perform 200' on 2 minute walk test to improve gross mobility and safety PT Problem 3 PT Problem #3 Impaired Strength PT Goal 1 Goal Patient will improve joaquin hip flexion strength to 4 +/5 to improve foot clearance with gait Target Visit 10 PT Goal 2 Goal Improve joaquin hip abduction strength to 4/5 to improve lateral stability with gait and transfers Target Visit 10 PT Problem 4 PT Problem #4 Impaired Functional Mobil PT Goal 1 Goal Demonstrate 20 point improvement in LEFS for gross functional progression Target Visit 10
--- NOTE | 2024-03-30 15:16 | PTOPEVAL1 ---
Assessment and note entered by Daniel Vanegas, PT Evaluation Information Assessment Status Evaluation ICD-10 Condition Codes (PT) Pain in low back M54.50,Pain in right hip M25.551, R26.9,Weakness R53.1 Onset 12/03/23 Subjective Information Reports that he had a fall when taking out recyclables. Resulted in femoral fracture. He used a cane prior to injury, but is not walker dependent. Feels like pain is not limiting him as much as weakness is. Feels the hip is progressing well he just does not trust it. He did 4 weeks of rehab in [place]. He is very nervous with his balance currently and wants to work on that. Does not trust his legs. Reports that he had another small fall 2 weeks ago but does not feel that he injured anything. Reported Pain Level Pain Score 1: Self Report Assessment PT Clinical Summary Patient presents with significant weakness and functional decline fo joaquin LE with greatest weakness and stability issues in bilateral hips. Will benefit from skilled therapy to address strength, transfers, and functional mobility for mcfp mobility and ADL performance. Plan of Care Interventions Gait Training,Manual Therapy,Neuro Re-education, Therapeutic Activities,Therapeutic Exercise PT Services Indicated Yes Treatment Frequency and 2x/week for 10 visits Duration These treatments will address the objective and functional deficits as defined above. The patient will be advanced safely and appropriately in order for the patient to progress towards his/her prior level of function. Additional exercises will be introduced and as well as a comprehensive home exercise program upon discharge, if needed, ?to ensure carryover of functional gains achieved in the clinic. This treatment plan has been reviewed and agreement upon by the patient.
--- NOTE | 2024-04-18 12:40 | PCPTNOTE ---
Called and cancelled unable to walk to car today. AKS
--- NOTE | 2024-05-16 10:19 | PCPTNOTE ---
pt called/canceled today's reevaluation, at appt time; stated he was not moving well this morning.
--- NOTE | 2024-05-25 11:34 | PCPTNOTE ---
pt did not show for today's reeval. Called and left voice mail message for him.
--- NOTE | 2024-06-22 10:54 | PCPTNOTE ---
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 He had 2 cancel and 1 no show appointments. Discharge PT at this time. Goals were not addressed.
== END 2024-06-20 14:45 | disposition home or self-care (01) ==
LOC: ANHPT 10:30
PROVIDERS: PCP Internal Medicine; Visit Provider Internal Medicine
DX: R26.81 Unsteadiness on feet (principal); S22.080S Wedge compression fracture of T11-T12 vertebra, sequela
CPT/HCPCS: 97110; 97116; 97161; 97530

== ENCOUNTER 2024-11-14 14:43 | Outpatient (NON) | payer MEDICARE, SELFPAY ==
[2024-11-14 16:48] LABS: Appearance Urine Clear (Clear); Bilirubin Urine Negative (Negative); Blood Urine Negative (Negative); Color Urine Dark Yellow (Yellow); Glucose Urine UA Negative (Negative); Ketones Urine Trace mg/dL (Negative); Leukocyte Esterase Ur Negative LEU/UL (Negative); Nitrate Urine Negative (Negative); Protein Urine Negative (Negative); Specific Grav Ur 1.025 (1.001-1.035); Urobilinogen Urine 0.2 mg/dL (<2.0)
[2024-11-14 17:07] LABS: Add Urine Microscopic? NO
== END 2024-11-14 14:44 | disposition home or self-care (01) ==
PROVIDERS: PCP Internal Medicine; Visit Provider Internal Medicine
DX: N40.0 Benign prostatic hyperplasia without lower urinary tract symptoms (principal)
CPT/HCPCS: 81003